=== PATIENT | female | born 1960 | race Caucasian/White ===

== ENCOUNTER → 2020-02-27 09:45 | Outpatient (CLI) | payer OTHER, SELFPAY ==
--- NOTE | ~2020-02-27 | MM_ITS ---
EXAMINATION: MM screening alyson BI w justice HISTORY: Screening TECHNIQUE: Craniocaudal and mediolateral oblique 3-D tomosynthesis images were obtained and synthetic 2-D images were generated. CAD analysis was submitted and interpreted. COMPARISON: Comparison to multiple prior studies sequentially, with oldest reviewed study dated 02/2014. BREAST PARENCHYMAL COMPOSITION: There are scattered areas of fibroglandular density. FINDINGS: There is no evidence of suspicious mass, calcification, or architectural distortion to sugg est malignancy in either breast. There has been no suspicious interval change. IMPRESSION: 1. No mammographic evidence of malignancy. 2. Recommend routine screening mammography in one year. BI-RADS Category 1: Negative Reviewed, dictated and finalized at location A.
== END ==
PROVIDERS: Visit Provider Obstetrics & Gynecology Gynecology
DX: Z12.31 Encounter for screening mammogram for malignant neoplasm of breast (principal)
CPT/HCPCS: 77063; 77067

== ENCOUNTER → 2022-03-19 13:17 | Outpatient (CLI) | payer OTHER, SELFPAY ==
--- NOTE | ~2022-03-19 | DEXA_ITS ---
Bone Density Report Name: SANDI RAM Age: 62 Sex: Female Ethnicity: White Date of : 1960 Indication: postmenopausal osteoporosis; height loss; prior fracture; Referring Provider: ERNESTINA TAMEZ Study: Bone densitometry was performed. Exam Date: March 19, 2022 Accession number: [id number] Bone Density: Region BMD T-score Z-score Classification AP Spine (L1-L4) 0.775 -2.5 -0.8 Osteoporosis Femoral Neck (Left) 0.611 -2.1 -0.7 Osteopenia Total Hip (Left) 0.736 -1.7 -0.6 Osteopenia Femoral Neck (Right) 0.704 -1.3 0.1 Osteopenia Total Hip (Right) 0.807 -1.1 0.0 Osteopenia Total Hip Mean 0.772 -1.4 -0.3 Osteopenia World Health Organization criteria for BMD impression classify patients as: Normal (T-score at or above -1.0), Osteopenia (T-score between -1.0 and -2.5), or Osteoporosis (T-score at or below -2.5). 10-year Fracture Risk: FRAX not reported because: Some T-score for Spine Total or Hip Total or Femoral Neck at or below -2.5 Previous Exams: Region Exam Age BMD T-score BMD Change BMD Change Date g/cm2 vs Baseline vs Previous AP Spine(L1-L4) 03/19/2022 62 0.775 -2.5 0.009 0.030 03/11/2016 56 0.745 -2.7 -0.021 -0.021 02/09/2014 53 0.766 -2.6 Total Hip(Left) 03/19/2022 62 0.736 -1.7 -0.083* -0.063 03/11/2016 56 0.799 -1.2 -0.020 -0.020 02/09/2014 53 0.819 -1.0 Total Hip(Right) 03/19/2022 62 0.807 -1.1 -0.044* -0.007 03/11/2016 56 0.813 -1.1 -0.038 -0.038 02/09/2014 53 0.851 -0.7 *Denotes significance at 95% confidence level, LSC for AP Spine = 0.022 g/cm2, LSC for Total Hip = 0.027 g/cm2 Clinical Information Provided by Patient: Has had a low trauma fracture Smokes Has used the following medications: Vitamin D Patient maximum height was 65.5 Menopause Age: 45 Does not regularly consume dairy products Drinks caffeinated beverages Onset of menses at age 9 Number of children 2 Impression: The patient has established osteoporosis, based on the Total Spine T-score and the existence of a prior fracture. The patient has risk factors, including: smoking, previous fracture. No significant bone loss was observed. Discussion: HIGH RISK OF FRACTURE. BONE DENSITY IS UNDESIRABLY LOW AT ONE OR MORE SKELETAL SITES, CONSISTENT WITH POSTMENOPAUSAL OSTEOPOROSIS. This patient's lowest T-score, in a diana
--- NOTE | ~2022-03-19 | MM_ITS ---
EXAMINATION: MM screening alyson BI w justice HISTORY: Screening TECHNIQUE: Craniocaudal and mediolateral oblique 3-D tomosynthesis images were obtained and synthetic 2-D images were generated. CAD analysis was submitted and interpreted. COMPARISON: Comparison to multiple prior studies sequentially, with oldest reviewed study dated 03/05. BREAST PARENCHYMAL COMPOSITION: Breast composed of scattered areas of fibroglandular density FINDINGS: There is no evidence of suspicious mass, calcification, or architectural distortion to sugg est malignancy in either breast. There has been no suspicious interval change. IMPRESSION: 1. No mammographic evidence of malignancy. 2. Recommend routine screening mammography in one year. BI-RADS Category 1: Negative Reviewed, dictated and finalized at location A.
== END ==
PROVIDERS: PCP Obstetrics & Gynecology Gynecology; Visit Provider Obstetrics & Gynecology Gynecology
DX: Z12.31 Encounter for screening mammogram for malignant neoplasm of breast (principal); Z78.0 Asymptomatic menopausal state; M81.0 Age-related osteoporosis without current pathological fracture; M85.851 Other specified disorders of bone density and structure, right thigh; M85.852 Other specified disorders of bone density and structure, left thigh
CPT/HCPCS: 77063; 77067; 77080

== ENCOUNTER → 2023-03-20 11:05 | Outpatient (CLI) | payer OTHER, SELFPAY ==
--- NOTE | ~2023-03-20 | MM_ITS ---
EXAMINATION: MM screening alyson BI w justice HISTORY: Screening mammogram TECHNIQUE: Craniocaudal and mediolateral oblique 3-D tomosynthesis images were obtained and synthetic 2-D images were generated. CAD analysis was submitted and interpreted. COMPARISON: 03/15/2022, 02/27/2020 bilateral screening mammogram examinations BREAST PARENCHYMAL COMPOSITION: There are scattered areas of fibroglandular density. FINDINGS: There is no evidence of suspicious mass, calcification, or architectural distortion to sugg est malignancy in either breast. There has been no suspicious interval change. IMPRESSION: 1. No mammographic evidence of malignancy. 2. Recommend routine screening mammography in one year. BI-RADS Category 1: Negative Reviewed, dictated and finalized at location A.
== END ==
PROVIDERS: PCP Internal Medicine; Visit Provider Obstetrics & Gynecology Gynecology
DX: Z12.31 Encounter for screening mammogram for malignant neoplasm of breast (principal)
CPT/HCPCS: 77063; 77067

== ENCOUNTER 2024-08-16 12:17 | Outpatient (CLI) | payer MEDICARE, SELFPAY ==
--- NOTE | ~2024-08-16 | MM_ITS ---
EXAMINATION: MM screening alyson BI w justice HISTORY: Screening TECHNIQUE: Craniocaudal and mediolateral oblique 3-D tomosynthesis images were obtained and synthetic 2-D images were generated. CAD analysis was submitted and interpreted. COMPARISON: Comparison to multiple prior studies sequentially, with oldest reviewed study dated 03/13. BREAST PARENCHYMAL COMPOSITION: Not Dense. The breasts are almost entirely fatty. FINDINGS: There is no evidence of suspicious mass, calcification, or architectural distortion to sugg est malignancy in either breast. There has been no suspicious interval change. IMPRESSION: 1. No mammographic evidence of malignancy. 2. Recommend routine screening mammography in one year. BI-RADS Category 1: Negative Reviewed, dictated and finalized at location A. ION WORKER
== END 2024-08-16 12:18 | disposition home or self-care (01) ==
LOC: MICIMG 12:19
PROVIDERS: PCP Internal Medicine; Visit Provider Obstetrics & Gynecology Gynecology
DX: Z12.31 Encounter for screening mammogram for malignant neoplasm of breast (principal); Z78.0 Asymptomatic menopausal state
CPT/HCPCS: 77063; 77067

== ENCOUNTER 2025-03-21 12:57 | Outpatient (CLI) | payer MEDICARE, SELFPAY ==
--- OUTSIDE RECORDS SUMMARY | 2025-03-21 13:00 | XMS_ITS | Encounter Summary ---
Author Organization [facility] Address [address] [facility] [place] [address] Care Team Providers Care Corrosion Prevention Metal Sprayer Name Role Phone Bert Cole MD Primary Care Provider [phone] Reason for Visit * Reason Onset Date Comments MEDICATION REFILL 12/02/2018 Encounter Details Date Type Department Care Team (Late st Contact Info) Description 12/02/2018 Refill [facility] [address] [place] [address] Gabby Higginbotham MD [address] [place] [id number] MEDICATION REFILL Social History Tobacco Use Types Packs/Day Years Used Date Smoking Tobacco: Never Smokeless Tobacco: Never Alcohol Use Standard Drinks/Week Comments Yes 0 (1 standard drink = 0.6 oz pur e alcohol) ocass. Comments No Sex and Gender Information Value Date Recorded Sex Assigned at Not on file Legal Sex Female 12:56 PM [employer] Gender Identity Not on file Sexual Orientation Not on file documented as of this encounter Plan of Treatment Not on file documented as of this encounter Visit Diagnoses Diagnosis Fibromyalgia Mylagia and myositis, unspecified Primary osteoarthritis of both knees Primary localized osteoarthrosis, lower leg Primary osteoarthritis of both feet Encounter for long-term (current) use of high-risk medication Encounter for long-term (current) use of other medications Encounter for therapeutic drug monitoring documented in this encounter Care Teams Corrosion Prevention Metal Sprayer Relationship Specialty Start Date End Date Bert Cole MD PCP - General 07/12/18 documented as of this encounter
--- OUTSIDE RECORDS SUMMARY | 2025-03-21 13:00 | XMS_ITS | Clinical Summary ---
Author Organization [facility] Address [address] [place] [address] Care Team Providers Care Head Swamper Name Role Phone Bert Cole MD Primary Care Provider [phone] Source Comments [facility],non-owned Affiliates and Associated Physician Practices is amultiple site organization consisting of ambulatory clinics and hospital sitesin [place], [place], [place] and [place]. This disclosure is being madepursuant to the Care Everywhere program and may not contain all information available regarding this patient. Last updated 18.[facility] Allergies Active Allergy Reactions Criticality Noted Date Comments Contrast-Iodinated Agents For Ct/Other Anaphylaxis High 08/14/2016 Sulfa Drugs Anaphylaxis High 04/29/2016 Medications * Be aware that medications may not be up to date on this document. Alwaysverify current medications with the patient. ascorbic acid (VITAMIN C) 500 MG tabletIndications:F ibromyalgia,Primary osteoarthritis of both knees,Primary osteoarthritis of both feet,Encounter for long-term (current) use of high-risk medication,Encounte r for therapeutic drug monitoring Take 500 mg by mouth once daily Active vitamin D3 (CHOLECALCIFEROL) 1000 UNITS tabletIndications:F ibromyalgia,Primary osteoarthritis of both knees,Primary osteoarthritis of both feet,Encounter for long-term (current) use of high-risk medication,Encounte r for therapeutic drug monitoring Take 1,000 Units by mouth once daily Active cyclobenzaprine (FLEXERIL) 10 MG tabletIndications:F ibromyalgia,Primary osteoarthritis of both knees,Primary osteoarthritis of both feet,Encounter for long-term (current) use of high-risk medication,Encounte r for therapeutic drug monitoring Take 10 mg by mouth Active fluticasone propionate (FLONASE) 50 MCG/ACT nasal sprayIndications:Fi bromyalgia,Primary osteoarthritis of both knees,Primary osteoarthritis of both feet,Encounter for long-term (current) use of high-risk medication,Encounte r for therapeutic drug monitoring [place] 1 spray into the nose once daily Active HYDROcodone-acetami nophen (NORCO) 7.5-325 MG tabletIndications:F ibromyalgia,Primary osteoarthritis of both knees,Primary osteoarthritis of both feet,Encounter for long-term (current) use of high-risk medication,Encounte r for therapeutic drug monitoring Take 1 tablet by mouth Active methocarbamol (ROBAXIN) 750 MG tabletIndications:F ibromyalgia,Primary osteoarthritis of both knees,Primary osteoarthritis of both feet,Encounter for long-term (current) use of high-risk medication,Encounte r for therapeutic drug monitoring Take 1 tablet by mouth 4 times daily as needed after meals/at bedtime for Muscle Spasms 0 8 Active Zinc 50 MGIndications:Fibro myalgia,Primary osteoarthritis of both knees,Primary osteoarthritis of both feet,Encounter for long-term (current) use of high-risk medication,Encounte r for therapeutic drug monitoring Acti ve diclofenac sodium EC (VOLTAREN) 75 MG tabletIndications:F ibromyalgia,Primary osteoarthritis of both knees,Primary osteoarthritis of both feet,Encounter for long-term (current) use of high-risk medication,Encounte r for therapeutic drug monitoring Take 1 tablet by mouth 2 times daily 180 tablet 1 8 Active gabapentin (NEURONTIN) 300 MG capsule Take 1 capsule by mouth 2 times daily 60 capsule 5 8 Active sertraline (ZOLOFT) 50 MG tabletIndications:F ibromyalgia,Primary osteoarthritis of both knees,Primary osteoarthritis of both feet,Encounter for long-term (current) use of high-risk medication,Encounte r for therapeutic drug monitoring Take 1.5 tablets by mouth once daily 135 tablet 9 Active Active Problems Problem Noted Date Diagnosed Date Fibromyalgia 11/09/2017 Primary osteoarthritis of both knees 11/09/2017 Primary osteoarthritis of both feet 11/09/2017 Encounter for long-term (cur rent) use of high-risk medication 11/09/2017 Encounter for therapeutic drug monitoring 2017 Immunizations Immunization Administration Dates Next Due INFLUENZA VACCINE 04/26/2018 Social History Tobacco Use Types Packs/Day Years Used Date Smoking Tobacco: Never Smokeless Tobacco: Never Alcohol Use Standard Drinks/Week Comments Yes 0 (1 standard drink = 0.6 oz pur e alcohol) ocass. 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 Gender Identity Not on file Sexual Orientation Not on file Last Filed Vital Signs Vital Sign Reading Time Taken Comments Blood Pressure 114/76 05/03/2018 9:43 AM CDT Pulse 77 11/09/2017 2:30 PM CDT Temperature 37.4 C (99.3 F) 11/09/2017 2:30 PM CDT Respiratory Rate 16 11/09/2017 2:30 PM CDT Oxygen Saturation 98% 11/09/2017 2:30 PM CDT Inhaled Oxygen Concentration - - Weight 94.3 kg (207 lb 12.8 oz) 05/03/2018 9:43 AM CDT Height 166.4 cm (5' 5.5) 11/09/2017 2:30 PM CDT Body Mass Index 34.05 11/09/2017 2:30 PM CDT Plan of Treatment Health Maintenance Due Date Last Done Comments BONE DENSITY TESTING 1959 COLOGUARD (AGES 45-75) - COL ON CA SCREENING 1959 COLON MONITORING 1959 COLONOSCOPY - COLON CA SCREENING 1959 CT COLONOGRAPHY - COLON CA SCREENING 1959 Colorectal Cancer Screening 1959 FIT - COLON CA SCREENING 1959 FLEX SIG - COLON CA SCREENING 1959 LIPID TESTING 1959 MAMMOGRAM 1959 DTAP/TDAP/TD VACCINES (1 - Tdap) 1978 PNEUMOCOCCAL VACCINE 50+ (1 of 1 - PCV) 2009 ZOSTER VACCINE (1 of 2) 2009 SCREENING FOR DIABETES 04/27/2021 8, 10/29/2017, 11/25/2016 COVID-19 VACCINE (1 - 2023-2 5 season) 2024 DEPRESSION SCREENING 07/27/2024 INFLUENZA VACCINE (#1) 2025 04/26/2018 Respiratory Syncytial Virus (RSV) Vaccine Pt: or over 60 yrs (1 - 1-dose 75+ series) 2034 HEPATITIS C SCREENING Completed 11/25/2016 HEPATITIS B VACCINE Aged Out No longe r eligible based on patient's age to complete this topic HIB VACCINE Aged Out No longer eligi ble based on patient's age to complete this topic HPV VACCINE Aged Out No longer eligi ble based on patient's age to complete this topic MENINGOCOCCAL (Group B) VACCINE SHARED DECISION-MAKING Aged Out No longer eligible based on patient's age to complete this topic MENINGOCOCCAL GROUPS A/C/Y/W VACCINE Aged Out No longer eligible b ased on patient's age to complete this topic Procedures Procedure Name Priority Date/Time Associated Diagnosis Comments COMPREHENSIVE METABOLIC PANEL Routine 04/27/2018 3:19 PM CDT Fibromyalgia Primary osteoarthritis of both knees Primary osteoarthritis of both feet Encounter for long-term (current) use of high-risk medication Encounter for therapeutic drug monitoring HEPATITIS C ANTIBODY Routine 11/25/2016 1:06 PM CDT from Last 3 Months or Most Recently Relevant to Health Maintenance Results * COMPREHENSIVE METABOLIC PANEL (04/27/2018 3:19 PM CDT) Glucose 89 65 - 99 mg/dL [facility] INSURANCE BILL BUN 10 6 - 24 mg/dL [facility] INSURANCE BILL Creatinine 0.72 0.57 - 1.00 mg/dL [facility] INSURANCE BILL eGFR by MDRD 92 >59 mL/min/1.7 3 [facility] INSURANCE BILL eGFR by MDRD 106 >59 mL/min/1.7 3 [facility] INSURANCE BILL BUN/Creatinine Ratio 14 9 - 23 [facility] INSURANCE BILL Sodium 141 134 - 144 mmol/L [facility] INSURANCE BILL Potassium 4.8 3.5 - 5.2 mmol/L [facility] INSURANCE BILL Chloride 101 96 - 106 mmol/L [facility] INSURANCE BILL CO2 23 20 - 29 mmol/L [facility] INSURANCE BILL Calcium 9.9 8.7 - 10.2 mg/dL [facility] INSURANCE BILL Protein Total 7.2 6.0 - 8.5 g/dL [facility] INSURANCE BILL Albumin 4.4 3.5 - 5.5 g/dL [facility] INSURANCE BILL Globulin Total 2.8 1.5 - 4.5 g/dL [facility] INSURANCE BILL Albumin/Globulin Ratio 1.6 1.2 - 2.2 [facility] INSURANCE BILL Bilirubin Total 0.5 0.0 - 1.2 mg/dL [facility] INSURANCE BILL Alkaline Phosphatase 110 39 - 117 IU/L [facility] INSURANCE BILL AST 22 0 - 40 IU/L [facility] INSURANCE BILL ALT 18 0 - 32 IU/L [facility] INSURANCE BILL Blood BLOOD SPECIMEN / Unknown 04/27/2018 3:19 PM CDT 04/27/2018 Narrative Resulting Agency Comment [facility] [id number] Gabby Higginbotham MD LAB - CHEMISTRY ORDERA BLES Final Result Performing Organization Address City/[facility]/ZIP Co de Phone Number [facility] [address] [place] [address] * HEPATITIS C ANTIBODY (11/25/2016 1:06 PM CDT) [facility] Hepatitis C Virus Antibody 0.1 0.0 - 0.9 s/co ratio [facility] ([facility]) Comment: Negative: < 0.8 Indeterminate: 0.8 - 0.9 Positive: > 0.9 The CDC recommends that a positive HCV antibody result be followed up with a HCV Nucleic Acid Amplification test ([id number]). Blood specimen (specimen) BLOOD SPECIMEN / Unknown 11/25/2016 1:06 PM CDT 11/25/2016 Narrative [facility] ([facility]) - 11/26/2016 7:13 AM CDT Performed at: [address] [place] [id number] Independent Distributor: Joe Hopper PhD, Phone: [phone] Gabby Higginbotham MD LAB - CHEMISTRY ORDERA BLES Final Result Performing Organization Address City/[facility]/ZIP Co de Phone Number [facility] ([facility]) [address] [place] [address], [facility] from Last 3 Months or Most Recently Relevant to Health Maintenance Insurance [employer] Care Teams Head Swamper Relationship Specialty Start Date End Date Bert Cole MD PCP - General 07/12/18
--- NOTE | 2025-03-21 13:20 | NEURO_ITS ---
Impression: # Non-diabetic complains of numbness of left hand. ? # No Carpal Tunnel Syndrome. ? # Severe left Ulnar Neuropathy. ? # Moderate right Ulnar Neuropathy. ? # Abnormal Needle/ EMG exam. ? # Clinical correlation recommended. Nerve Conduction Studies ?Stim Site NR Peak (ms) P-T Amp (?V) Site1 Site2 Delta-P (ms) Dist (cm) Noah (m/s) Left Median Anti Sensory (2-3nd Digit) Wrist ? 3.6 23.2 Wrist 2-3nd Digit 3.6 14.0 39 Wrist ? 3.8 22.6 Wrist 2-3nd Digit 3.6 14.0 39 Right Median Anti Sensory (2-3nd Digit) Wrist ? 3.5 24.0 Wrist 2-3nd Digit 3.5 14.0 40 Wrist ? 3.5 21.5 Wrist 2-3nd Digit 3.5 14.0 40 Left Radial Anti Sensory (Base 1st Digit) Wrist ? 1.8 21.1 Wrist Base 1st Digit 1.8 0.0 Right Radial Anti Sensory (Base 1st Digit) Wrist ? 2.6 19.6 Wrist Base 1st Digit 2.6 0.0 Left Ulnar Anti Sensory (5th Digit) Wrist ? 2.9 2.0 Wrist 5th Digit 2.9 14.0 48 Right Ulnar Anti Sensory (5th Digit) Wrist ? 2.8 34.7 Wrist 5th Digit 2.8 14.0 50 ?Stim Site NR Onset (ms) O-P Amp (mV) Site1 Site2 Delta-0 (ms) Dist (cm) Noah (m/s) Left Median Motor (Abd Poll Brev) Wrist ? 4.0 4.6 Elbow Wrist 5.2 31.0 60 Elbow ? 9.2 3.7 Right Median Motor (Abd Poll Brev) Wrist ? 3.5 2.7 Elbow Wrist 5.0 29.0 58 Elbow ? 8.5 3.2 Left Ulnar Motor (Abd Dig Minimi) Wrist ? 3.0 2.7 A Elbow Wrist 8.5 31.0 36 A Elbow ? 11.5 3.1 B Elbow Wrist 5.4 23.0 43 B Elbow ? 8.4 3.7 Right Ulnar Motor (Abd Dig Minimi) Wrist ? 3.5 2.4 A Elbow Wrist 5.5 28.0 51 A Elbow ? 9.0 2.0 B Elbow Wrist 3.8 19.0 50 B Elbow ? 7.3 2.1 F Wave Studies ?NR F-Lat (ms) L-R F-Lat (ms) Left Median (Mrkrs) (Abd Poll Brev) ? 27.36 0.76 Right Median (Mrkrs) (Abd Poll Brev) ? 28.13 0.76 Left Ulnar (Mrkrs) (Abd Dig Min) ? 25.21 3.82 Right Ulnar (Mrkrs) (Abd Dig Min) ? 29.03 3.82 Electromyography ?Side Muscle Nerve Root Ins Act Fibs Amp Dur Recrt Comment Right 1stDorInt Ulnar C8-T1 Nml Nml Nml >12ms +1 Left 1stDorInt Ulnar C8-T1 Nml Nml Decr >12ms +2 Right ABD Dig Min Ulnar C8-T1 Nml Nml Nml >12ms +1 Left ABD Dig Min Ulnar C8-T1 Nml Nml Decr >12ms Nml Left Abd Poll Brev Median C8-T1 Nml Nml Nml Nml Nml Right Abd Poll Brev Median C8-T1 Nml Nml Nml Nml Nml Right Abd Poll Long Radial (Post Int) C7-8 Nml Nml Nml Nml Nml Left Abd Poll Long Radial (Post Int) C7-8 Nml Nml Nml Nml Nml Left Biceps Musculocut C5-6 Nml Nml Nml Nml Nml Right Biceps Musculocut C5-6 Nml Nml Nml Nml Nml Right BrachioRad Radial C5-6 Nml Nml Nml Nml Nml Left BrachioRad Radial C5-6 Nml Nml Nml Nml Nml Left Deltoid Axillary C5-6 Nml Nml Nml Nml Nml Right Deltoid Axillary C5-6 Nml Nml Nml Nml Nml Right Ext Digitorum Radial (Post Int) C7-8 Nml Nml Nml Nml Nml Left Ext Digitorum Radial (Post Int) C7-8 Nml Nml Nml Nml Nml Right Ext Indicis Radial (Post Int) C7-8 Nml Nml Nml Nml Nml Left Ext Indicis Radial (Post Int) C7-8 Nml Nml Nml Nml Nml Right FlexPolLong Median (Ant Int) C7-8 Nml Nml Nml Nml Nml Left FlexPolLong Median (Ant Int) C7-8 Nml Nml Nml Nml Nml Left PronatorTeres Median C6-7 Nml Nml Nml Nml Nml Right PronatorTeres Median C6-7 Nml Nml Nml Nml Nml Right Triceps Radial C6-7-8 Nml Nml Nml Nml Nml Left Triceps Radial C6-7-8 Nml Nml Nml Nml Nml
== END 2025-03-21 12:58 | disposition home or self-care (01) ==
PROVIDERS: PCP Internal Medicine; Visit Provider Internal Medicine
DX: G56.21 Lesion of ulnar nerve, right upper limb (principal); R20.2 Paresthesia of skin
CPT/HCPCS: 95886; 95911

== ENCOUNTER 2025-05-08 12:58 | Outpatient (CLI) | payer MEDICARE, SELFPAY ==
--- OUTSIDE RECORDS SUMMARY | 1999-06-28 03:00 | XMS_ITS | Continuity of Care Document ---
Author Organization [facility] Address [address] [place] [address] [address] [place] [address] Phone Care Team Providers Care Software Product Manager Name Role Phone Toan Glaser Unavailable Unavailable Advance Directives Directive Yes / No Effective Date File Name No Information Encounters Encounter Description Practice Location Reason(s) For Visit Diagnoses Date Provider Providers Copied on Encounter [facility], [address] [place] [address] [address], [place], [place], [id number], [place] tel:[phone] [facility] [place] No Information Dec-0 3-199 9 Doisy Edward. [address] [facility] , [address], [place], [address], [place]. tel:[phone] Family History Family Member Type Diagnosis Age At Onset No Information Payers Payer name Insurance type Covered alliance party ID Authoriza tion(s) [employer] SOI CI [id number] Social History Type Description Quantity Date Captured [...]
--- OUTSIDE RECORDS SUMMARY | 2025-02-14 06:00 | XMS_ITS | Continuity of Care Document ---
Author Organization [facility] Address [address] [place] [phone] Phone Care Team Providers Care Dictating Machine Typist Name Role Phone Ronni ORO, FACAdam, Guerita Unavailable Unavailab le Procedures Procedure Date TTE W/DOPPLER, COMPLETE Results Test Name Date and Time Measure Units Reference Range Abnormal Flag Status Comments Panel Description: Not Available Final [{Url}] <Url iRemMajorVer kayla=1 iRemMinorVer kayla=5.9.4 seq_no=ed3b [id number] template_nam e=PacsEx>< Path><![CDAT A[[email or web address] om/?ZMDopoyW 1DWNh1H1VjIS LpZWfYX1+oE5 T8AVTnOamy/+ X/qu7nEhujDr Vec/6Fk5H4kq jzvUVoLL0bVY DbDWmguEusY/ iY5a7mwjQj08 8QgV6vN6zdml cfPs+p7LBWJJ ]]></Path></ Url> Final Panel Description: ECHO Unknown Image ECHO 1 Advance Directives Directive Yes / No Effective Date File Name No Information Encounters Encounter Description Practice Location Reason(s) For Visit Diagnoses Date Provider Providers Copied on Encounter [facility] , [address] [place] [address], [id number], tel:[phone] [facility] Cardiac murmur, unspecified Ronni Dexter. [address] [place] [address], [id number], . tel:[phone] Referring Provider: Everton Albert, [address] [place], [address]. tel:[phone] Family History Family Member Type Diagnosis Age At Onset No Information Payers Payer name Insurance type Covered green party ID Authoriza tion(s) AARP [facility] ADVANTAGE PLAN 2 O [facility] [id number] 1 NO AUTH REQUIRED Social History Type [...]
--- NOTE | 2025-05-08 13:24 | ECG_ITS ---
Test Date: 2025-05-08 13:29:00 Measurements Intervals [place] Rate: 60 P: 256 AR: 122 QRS: -17 QRSD: 103 T: 4 QT: 426 QTc: 428 Interpretive Statements ECTOPIC ATRIAL RHYTHM VOLTAGE CRITERIA FOR LVH CONSIDER ANTERIOR INFARCT, AGE INDETERMINATE BORDERLINE T WAVE ABNORMALITY- INFERIOR LEADS ABNORMAL ECG No previous ECG available for comparison Electronically Signed On 05-08-2025 15:52:41 CDT by Faustino Green D.O.
--- OUTSIDE RECORDS SUMMARY | 2025-05-08 14:07 | XMS_ITS | Clinical Summary ---
Author Organization [facility] Address [address] [place] [address] Care Team Providers Care Threading Machine Feeder Automatic Name Role Phone Bert Cole MD Primary Care Provider [phone] [facility],non-owned Affiliates and Associated Physician Practices is amultiple site organization consisting of ambulatory clinics and hospital sitesin [place], [place] and [place]. This disclosure is being madepursuant to the Care Everywhere program and may not contain all information available regarding this patient. 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 Gender Identity Not on file Sexual Orientation [...] CDT Height 166.4 cm (5' 5.5) 11/09/2017 2 :30 PM CDT Body Mass Index 34.05 11/09/2017 [...] SCREENING FOR DIABETES 04/27/2021 8, 10/29/2017, 11/25/2016 DEPRESSION SCREENING 07/27/2024 COVID-19 VACCINE (1 - 2023-2 5 season) 2025 INFLUENZA VACCINE (#1) 2025 04/26/2018 Respiratory Syncytial [...] PM CDT 04/27/2018 Narrative Resulting Agency Comment [facility] [id number] Gabby Higginbotham MD LAB - CHEMISTRY ORDERA BLES Final Result Performing Organization Address City/[facility]/ZIP Co de Phone Number [facility] INS[facility]ANCE BILL [address] [place] [address] * HEPATITIS C ANTIBODY (11/25/2016 1:06 PM CDT) [facility] Hepatitis C Virus Antibody 0.1 0.0 - 0.9 s/co ratio [facility] ([facility]) Comment: Negative: < 0.8 Indeterminate: 0.8 - 0.9 Positive: > 0.9 The CDC recommends that a positive HCV antibody result be followed up with a HCV Nucleic Acid Amplification test ([id number]). Blood specimen (specimen) BLOOD SPECIMEN / Unknown 11/25/2016 1:06 PM CDT 11/25/2016 Narrative [facility] ([facility]) - 11/26/2016 7:13 AM CDT Performed at: [address] [place] [id number] Abattoir Supervisor: Joe Hopper PhD, Phone: [phone] Gabby Higginbotham MD LAB - CHEMISTRY ORDERA BLES Final Result Performing Organization Address City/[facility]/ZIP Co de Phone Number [facility] ([facility]) [address] [place] [address], [facility] from Last 3 Months or Most Recently Relevant to Health Maintenance Insurance [employer] Care Teams Threading Machine Feeder Automatic Relationship Specialty Start Date End Date Bert Cole MD PCP - General 07/12/18
--- OUTSIDE RECORDS SUMMARY | 2025-05-08 14:08 | XMS_ITS | Data Portability ---
[facility] Address [address] [place] [address] Care Team Providers Care Dock Coordinator Name Role Phone KAVITHA ALBERT Primary Care Provider Assessment Encounter Date Assessment Date Assessment LastModified by Organization Details LastModified Time 11/25/2023 11/25/2023 Obtain blood wor k continue current mammogram she believes she is up-to-date we will get colon cancer screening obtain old records from previous office osteoporosis not treated right now because of her jaw issue states that she had a Pap smear in November 2022 follow-up with me in 4 months [email or web address] Not available 11/30/2023 22:45:01 07/01/2024 07/01/2024 acetaminophen fo r osteoarthritis healthy lifestyle care instructions blood work for biochemical management of disease processes and medications [email or web address] Not available 07/02/2024 12:05:09 01/09/2025 01/09/2025 Medrol Dosepak nerve conduction studies complete echo for her systolic murmur CBC CMP lipid see me in 8 weeks continue with sertraline and atorvastatin as well [email or web address] Not available 01/09/2025 23:14:02 03/06/2025 03/06/2025 Physical therapy for her cervical radiculopathy she will follow up in 2 months still needs to get her echo for her murmur Not available 03/12/2025 17:47:46 Plan of Treatment Reminders Order Date Submit Date Provider Last Modified By Organization Details Last Modified Time Details Appointments ANY 15 2024 10:30A M Kavitha Albert MD Not available Not available Not available Lab CBC w/ auto diff 2024 025 [facility], [address] [facility] [address], [place], [address], 03/07/2025 07:07:15 CMP, serum or plasma 2024 025 [facility], [address] [place] [address] 2, [place], [address], 03/07/2025 07:07:15 lipid panel, serum 2024 025 [facility], [address] [place] [address] 2, [place], [address], 03/07/2025 07:07:14 CBC w/ auto diff 2023 024 [facility], [address] [place] [address] 2, [place], [address], 07/02/2024 09:13:54 lipid panel, serum 2023 024 [facility], [address] [place] [address], [place], [address], 07/02/2024 09:13:52 CMP, serum or plasma 2023 024 [facility], [address] [place] [address], [place], [address], 07/02/2024 09:13:53 noninvasi ve colorecta l cancer DNA + occult blood screening , QL, stool 2023 024 [facility], [address], [address], [place], [address], 12/23/2023 01:26:02 CBC w/ auto diff 2023 024 [facility], [facility], [address], [place], [address], 11/26/2023 08:29:19 lipid panel, serum 2023 024 [facility], [address], [place], [address], 11/26/2023 08:29:17 CMP, serum or plasma 2023 024 [facility], [address], [address], [place], [address], 11/26/2023 08:29:18 Referral physical therapist referral 2024 025 [facility], [address], [place], [address], 04/19/2025 11:05:17 Procedures None recorded. Surgeries None recorded. Imaging US, echocardi ogram 2024 025 [facility], [address], [address], [place], [address], 03/06/2025 14:24:48 nerve conductio n study - NCS B/L arms 2024 025 [facility]), [address] [place] [address] [address] [facility], [place], [address], 03/28/2025 10:58:36 Medication Orders Medrol (Hayden) 4 mg tablets in a dose pack 2024 025 [facility], [address] [facility], [place], [address], 03/06/2025 14:02:06 Patient TargetsNo targets recorded. Patient Instructions Encounter Date Encounter Id Patient Instructions Last Modified By Organization Details Last Modified Time 07/01/2024 [id number] A healthy lifestyle: care instructions [email or web address] Not available 07/01/2024 16:47:28 01/09/2025 [id number] A healthy lifestyle: care instructions [email or web address] Not available 01/09/2025 15:13:49 03/06/2025 [id number] A healthy lifestyle: care instructions [email or web address] Not available 03/06/2025 14:48:48 Reason for Referral Physical Therapist Referral for Cervical radiculopathy Referring Physician: Kavitha Albert, Internal Medicine, Encounter Date: 03/06/2025 Results Created Date Observation Date Name Description Value Unit Range Abnormal Flag Note LastModifiedBy Organization Detail LastModifiedTime 11/25/19 24 11/26/2023 LIPID PANEL cholesterol, total 186 mg/dL 100-19 9 Not Available [facility] ([facility]) [address] [place], [address], 11/26/2023 08:29:17 11/25/19 24 11/26/2023 LIPID PANEL triglyceride s 185 mg/dL 0-149 above high normal Not Available [facility] ([facility]) [address] [place], [address], 11/26/2023 08:29:17 11/25/19 24 11/26/2023 LIPID PANEL HDL cholesterol 53 mg/dL >39 Not Available [facility] ([facility]) [address] [place], [address], 11/26/2023 08:29:17 11/25/19 24 11/26/2023 LIPID PANEL VLDL cholesterol nayana 32 mg/dL 5-40 Not Available [facility] ([facility]) [address] [place], [address], 11/26/2023 08:29:17 11/25/19 24 11/26/2023 LIPID PANEL LDL chol calc ([facility]) 101 mg/dL 0-99 above high normal Not Available [facility] ([facility]) [address] [place], [address], 11/26/2023 08:29:17 11/25/19 24 11/26/2023 COMP. METAB OLIC PANEL (14) glucose 86 mg/dL 70-99 Not Available [facility] ([facility]) [address] [place], [address], 11/26/2023 08:29:18 11/25/19 24 11/26/2023 COMP. METAB OLIC PANEL (14) BUN 12 mg/dL 8-27 Not Available [facility] ([facility]) [address] [facility] [place], [address], 11/26/2023 08:29:18 11/25/19 24 11/26/2023 COMP. METAB OLIC PANEL (14) creatinine 0.86 mg/dL 0.57-1 .00 Not Available [facility] ([facility]) [address] [facility] [place], [address], 11/26/2023 08:29:18 11/25/19 24 11/26/2023 COMP. METAB OLIC PANEL (14) eGFR 75 mL/mi n/1.7 3 >59 Not Available [facility] ([facility]) [address] [facility] [place], [address], 11/26/2023 08:29:18 11/25/19 24 11/26/2023 COMP. METAB OLIC PANEL (14) BUN/creatini ne ratio 14 12-28 Not Available [facility] ([facility]) [address] [facility] [place], [address], 11/26/2023 08:29:18 11/25/19 24 11/26/2023 COMP. METAB OLIC PANEL (14) sodium 141 mmol/ L 134-14 4 Not Available [facility] ([facility]) [address] [facility] [place], [address], 11/26/2023 08:29:18 11/25/19 24 11/26/2023 COMP. METAB OLIC PANEL (14) potassium 4.4 mmol/ L 3.5-5. 2 Not Available [facility] ([facility]) [address] [facility] [place], [address], 11/26/2023 08:29:18 11/25/19 24 11/26/2023 COMP. METAB OLIC PANEL (14) chloride 102 mmol/ L 96-106 Not Available [facility] ([facility]) [address] [place], [address], 11/26/2023 08:29:18 11/25/19 24 11/26/2023 COMP. METAB OLIC PANEL (14) carbon dioxide, total 24 mmol/ L Not Available [facility] ([facility]) [address], [place], [address], 11/26/2023 08:29:18 11/25/19 24 11/26/2023 COMP. METAB OLIC PANEL (14) calcium 9.6 mg/dL 8.7-10 .3 Not Available [facility] ([facility]) [address] [place], [address], 11/26/2023 08:29:18 11/25/19 24 11/26/2023 COMP. METAB OLIC PANEL (14) protein, total 7.1 g/dL 6.0-8. 5 Not Available [facility] ([facility]) [address], [place], [address], 11/26/2023 08:29:18 11/25/19 24 11/26/2023 COMP. METAB OLIC PANEL (14) albumin 4.6 g/dL 3.9-4. 9 Not Available [facility] ([facility]) [address] [place], [address], 11/26/2023 08:29:18 11/25/19 24 11/26/2023 COMP. METAB OLIC PANEL (14) globulin, total 2.5 g/dL 1.5-4. 5 Not Available [facility] ([facility]) [address] [place], [address], 11/26/2023 08:29:18 11/25/19 24 11/26/2023 COMP. METAB OLIC PANEL (14) A/G ratio 1.8 1.2-2. 2 Not Available [facility] ([facility]) [address] [place], [address], 11/26/2023 08:29:18 11/25/19 24 11/26/2023 COMP. METAB OLIC PANEL (14) bilirubin, total 0.7 mg/dL 0.0-1. 2 Not Available [facility] ([facility]) [address] [place], [address], 11/26/2023 08:29:18 11/25/19 24 11/26/2023 COMP. METAB OLIC PANEL (14) alkaline phosphatase 106 IU/L 44-121 Not Available [facility] ([facility]) [address] [facility] [place], [address], 11/26/2023 08:29:18 11/25/19 24 11/26/2023 COMP. METAB OLIC PANEL (14) AST (SGOT) 25 IU/L 0-40 Not Available [facility] ([facility]) [address] [facility], [place], [address], 11/26/2023 08:29:18 11/25/19 24 11/26/2023 COMP. METAB OLIC PANEL (14) ALT (SGPT) 14 IU/L 0-32 Not Available [facility] ([facility]) [address] [facility] [place], [address], 11/26/2023 08:29:18 11/25/19 24 11/26/2023 CBC WITH DIFFE RENTI AL/PL ATELE T WBC 8.0 x10e3 /uL 3.4-10 .8 Not Available [facility] ([facility]) [address] [facility] [place], [address], 11/26/2023 08:29:19 11/25/19 24 11/26/2023 CBC WITH DIFFE RENTI AL/PL ATELE T RBC 4.62 x10e6 /uL 3.77-5 .28 Not Available [facility] ([facility]) [address] [facility] [place], [address], 11/26/2023 08:29:19 11/25/19 24 11/26/2023 CBC WITH DIFFE RENTI AL/PL ATELE T hemoglobin 14.1 g/dL 11.1-1 5.9 Not Available [facility] ([facility]) [address] [facility], [place], [address], 11/26/2023 08:29:19 11/25/19 24 11/26/2023 CBC WITH DIFFE RENTI AL/PL ATELE T hematocrit 43.4 % 34.0-4 6.6 Not Available [facility] ([facility]) [address] [place], [address], 11/26/2023 08:29:19 11/25/19 24 11/26/2023 CBC WITH DIFFE RENTI AL/PL ATELE T MCV 94 fL 79-97 Not Available [facility] ([facility]) [address] [place], [address], 11/26/2023 08:29:19 11/25/19 24 11/26/2023 CBC WITH DIFFE RENTI AL/PL ATELE T MCH 30.5 pg 26.6-3 3.0 Not Available [facility] ([facility]) [address] [place], [address], 11/26/2023 08:29:19 11/25/19 24 11/26/2023 CBC WITH DIFFE RENTI AL/PL ATELE T MCHC 32.5 g/dL 31.5-3 5.7 Not Available [facility] ([facility]) [address] [place], [address], 11/26/2023 08:29:19 11/25/19 24 11/26/2023 CBC WITH DIFFE RENTI AL/PL ATELE T RDW 12.7 % 11.7-1 5.4 Not Available [facility] ([facility]) [address] [place], [address], 11/26/2023 08:29:19 11/25/19 24 11/26/2023 CBC WITH DIFFE RENTI AL/PL ATELE T platelets 272 x10e3 /uL 150-45 0 Not Available [facility] ([facility]) [address] [facility], [place], [address], 11/26/2023 08:29:19 11/25/19 24 11/26/2023 CBC WITH DIFFE RENTI AL/PL ATELE T neutrophils 63 % notest ab. Not Available [facility] ([facility]) [address] [facility], [place], [address], 11/26/2023 08:29:19 11/25/19 24 11/26/2023 CBC WITH DIFFE RENTI AL/PL ATELE T lymphs 20 % notest ab. Not Available [facility] ([facility]) [address] [facility], [place], [address], 11/26/2023 08:29:19 11/25/19 24 11/26/2023 CBC WITH DIFFE RENTI AL/PL ATELE T monocytes 9 % notest ab. Not Available [facility] ([facility]) [address] [facility], [place], [address], 11/26/2023 08:29:19 11/25/19 24 11/26/2023 CBC WITH DIFFE RENTI AL/PL ATELE T eos 7 % notest ab. Not Available [facility] ([facility]) [address] [facility], [place], [address], 11/26/2023 08:29:19 11/25/19 24 11/26/2023 CBC WITH DIFFE RENTI AL/PL ATELE T basos 1 % notest ab. Not Available [facility] ([facility]) [address] [facility], [place], [address], 11/26/2023 08:29:19 11/25/19 24 11/26/2023 CBC WITH DIFFE RENTI AL/PL ATELE T neutrophils (absolute) 5.0 x10e3 /uL 1.4-7. 0 Not Available [facility] ([facility]) [address] [facility], [place], [address], 11/26/2023 08:29:19 11/25/19 24 11/26/2023 CBC WITH DIFFE RENTI AL/PL ATELE T lymphs (absolute) 1.6 x10e3 /uL 0.7-3. 1 Not Available [facility] ([facility]) [address] [facility], [place], [address], 11/26/2023 08:29:19 11/25/19 24 11/26/2023 CBC WITH DIFFE RENTI AL/PL ATELE T monocytes(ab solute) 0.8 x10e3 /uL 0.1-0. 9 Not Available [facility] ([facility]) [address] [facility], [place], [address], 11/26/2023 08:29:19 11/25/19 24 11/26/2023 CBC WITH DIFFE RENTI AL/PL ATELE T eos (absolute) 0.6 x10e3 /uL 0.0-0. 4 above high normal Not Available [facility] ([facility]) [address] [facility], [place], [address], 11/26/2023 08:29:19 11/25/19 24 11/26/2023 CBC WITH DIFFE RENTI AL/PL ATELE T baso (absolute) 0.1 x10e3 /uL 0.0-0. 2 Not Available [facility] ([facility]) [address] [place], [address], 11/26/2023 08:29:19 11/25/19 24 11/26/2023 CBC WITH DIFFE RENTI AL/PL ATELE T immature granulocytes 0 % notest ab. Not Available [facility] ([facility]) [address] [place], [address], 11/26/2023 08:29:19 11/25/19 24 11/26/2023 CBC WITH DIFFE RENTI AL/PL ATELE T immature grans (abs) 0.0 x10e3 /uL 0.0-0. 1 Not Available [facility] ([facility]) [address] [facility], [place], [address], 11/26/2023 08:29:19 12/15/19 24 12/15/2023 COLOG UARD cologuard result reportable Negati ve negati ve normal NEGAT LEONARD TEST RESUL T. A negat leonard Colog uard resul t indic ates a low likel ihood that a color ectal cance r (CRC) or advan alex adeno ma (freedom omato us polyp s with more advan alex pre-m align ant featu res) is prese nt. The chanc e that a perso n with a negat leonard Colog uard test has a color ectal cance r is less than 1 in 1500 (nega tive predi ctive value >99.9 %) or has an advan alex adeno ma is less than 5.3% (nega tive predi ctive value 94.7% ). These data are based on a prosp ectiv e cross -sect ional study of 10,00 0 indiv idual s at [facility] risk for color ectal cance r who were scree rachna with both Colog uard and colon oscop y. (Sheyla Pablo. et al, N Engl J Med 2014; 370(1 4):12 86-12 97) The jose l value (refe rence range ) for this assay is negat leonard. COLOG UARD RE-SC REENI NG RECOM MENDA TION: Perio dic color ectal cance r scree maria antonia is an impor tant part of preve ntive healt hcare for asymp tomat ic indiv idual s at [facility] risk for color ectal cance r. Follo wing a negat leonard Colog uard resul t, the Ameri can Cance r Socie ty and U.S. Multi -Soci ety Task Force scree maria antonia guide lines recom mend a Colog uard re-sc bry burnham inter ann of 3 years . Refer ences : Gonzalo burton Cance jo-ann Socie ty Guide line for Color ectal Cance r Scree maria antonia: https ://milly chandler cer.o rg/ca ncer/ colon -rect al-ca ncer/ detec tion- diagn osis- stagi ng/ac s-rec ommen datio ns.ht ml.; Primo CARBAJAL, Adelia GALVAN, Alvarez RamírezK, Color ectal Cance r Scree maria antonia: Recom menda tions for Physi cians and Patie nts from the U.S. Multi -Soci ety Task Force on Color ectal Cance r Scree maria antonia , Oskar mathis rolog y 2017; 112:1 016-1 030. TEST DESCR IPTIO N: [place] site algor ithmi c kamala sis of stool DNA-b iomar kers with hemog lobin immun oassa y. Quant itati ve value s of indiv idual bioma rkers are not repor table and are not assoc iated with indiv idual bioma rker resul t refer ence range s. Colog uard is inten ded for color ectal cance r scree maria antonia of adult s of eithe r sex, 45 years or older , who are at [facility] for color ectal cance r (CRC) . Colog uard has been appro patsy for use by the U.S. FDA. The perfo rmanc e of Colog uard was estab lishe d in a cross secti onal study of [facility] adult s aged 50-84 . Colog uard perfo rmanc e in patie nts ages 45 to 49 years was estim ated by sub-g roup kamala sis of near- age group s. Colon oscop ies perfo rmed for a posit leonard resul t may find as the most clini dayna signi gay pablo lesgloria n: color ectal cance r [4.0% ], advan alex adeno ma (incl uding sessi le ming jamal polyp s great er than or equal to 1cm diame ter) [20%] or non- advan alex adeno ma [31%] ; or no color ectal neopl camelia [45%] . These estim ates are deriv ed from a prosp ectiv e cross -sect ional scree maria antonia study of 0 [facility] ectal cance r who were scree rachna with both Colog uard and colon oscop y. (Sheyla Hilario et al, N Engl J Med 2014; 370(1 4):12 86-12 97.) Colog uard may produ ce a false negat leonard or false posit leonard resul t (no color ectal cance r or preca ncero us polyp prese nt at colon oscop y follo w up). A negat leonard Colog uard test resul t does not guara ntee the absen ce of CRC or advan alex adeno ma (pre- cance r). The curre nt Colog uard scree maria antonia inter ann is every 3 years . (Amer ican Cance r Socie ty and U.S. Multi -Soci ety Task Force ). Colog uard perfo rmanc e data in a 0 patie nt pivot al study using colon oscop y as the refer ence metho d can be acces sed at the follo wing locat ion: www.e xactl abs.c om/jose arenas . Addit ional descr iptio n of the Colog uard test proce ss, warni ngs and preca ution s can be found at www.c rashid brown.c om. Not Available [facility] [address], [place], [address], 12/23/2023 01:26:02 07/01/20 24 07/02/2024 LIPID PANEL cholesterol, total 168 mg/dL 100-19 9 Not Available [facility] ([facility]) [address] [facility], [place], [address], 07/02/2024 09:13:52 07/01/20 24 07/02/2024 LIPID PANEL triglyceride s 171 mg/dL 0-149 above high normal Not Available [facility] ([facility]) [address] [facility] [place], [address], 07/02/2024 09:13:52 07/01/20 24 07/02/2024 LIPID PANEL HDL cholesterol 52 mg/dL >39 Not Available [facility] ([facility]) [address] [facility], [place], [address], 07/02/2024 09:13:52 07/01/20 24 07/02/2024 LIPID PANEL VLDL cholesterol nayana 29 mg/dL 5-40 Not Available [facility] ([facility]) [address] [facility], [place], [address], 07/02/2024 09:13:52 07/01/20 24 07/02/2024 LIPID PANEL LDL chol calc ([facility]) 87 mg/dL 0-99 Not Available [facility] ([facility]) [address] [facility] [place], [address], 07/02/2024 09:13:52 07/01/20 24 07/02/2024 COMP. METAB OLIC PANEL (14) glucose 77 mg/dL 70-99 Not Available [facility] ([facility]) [address] [place], [address], 07/02/2024 09:13:53 07/01/20 24 07/02/2024 COMP. METAB OLIC PANEL (14) BUN 12 mg/dL 8-27 Not Available [facility] ([facility]) [address] [facility], [place], [address], 07/02/2024 09:13:53 07/01/20 24 07/02/2024 COMP. METAB OLIC PANEL (14) creatinine 0.79 mg/dL 0.57-1 .00 Not Available [facility] ([facility]) [address] [place], [address], 07/02/2024 09:13:53 07/01/20 24 07/02/2024 COMP. METAB OLIC PANEL (14) eGFR 83 mL/mi n/1.7 3 >59 Not Available [facility] ([facility]) [address] [facility] [place], [address], 07/02/2024 09:13:53 07/01/20 24 07/02/2024 COMP. METAB OLIC PANEL (14) BUN/creatini ne ratio 15 12-28 Not Available [facility] ([facility]) [address] [facility], [place], [address], 07/02/2024 09:13:53 07/01/20 24 07/02/2024 COMP. METAB OLIC PANEL (14) sodium 141 mmol/ L 134-14 4 Not Available [facility] ([facility]) [address] [facility] [place], [address], 07/02/2024 09:13:53 07/01/20 24 07/02/2024 COMP. METAB OLIC PANEL (14) potassium 4.5 mmol/ L 3.5-5. 2 Not Available [facility] ([facility]) [address] [facility] [place], [address], 07/02/2024 09:13:53 07/01/20 24 07/02/2024 COMP. METAB OLIC PANEL (14) chloride 102 mmol/ L 96-106 Not Available [facility] ([facility]) [address] [facility] [place], [address], 07/02/2024 09:13:53 07/01/20 24 07/02/2024 COMP. METAB OLIC PANEL (14) carbon dioxide, total 27 mmol/ L 20-29 Not Available [facility] ([facility]) [address] [facility] [place], [address], 07/02/2024 09:13:53 07/01/20 24 07/02/2024 COMP. METAB OLIC PANEL (14) calcium 9.8 mg/dL 8.7-10 .3 Not Available [facility] ([facility]) [address] [facility], [place], [address], 07/02/2024 09:13:53 07/01/20 24 07/02/2024 COMP. METAB OLIC PANEL (14) protein, total 7.0 g/dL 6.0-8. 5 Not Available [facility] ([facility]) [address] [facility] [place], [address], 07/02/2024 09:13:53 07/01/20 24 07/02/2024 COMP. METAB OLIC PANEL (14) albumin 4.3 g/dL 3.9-4. 9 Not Available [facility] ([facility]) [address] [facility] [place], [address], 07/02/2024 09:13:53 07/01/20 24 07/02/2024 COMP. METAB OLIC PANEL (14) globulin, total 2.7 g/dL 1.5-4. 5 Not Available [facility] ([facility]) [address] [facility], [place], [address], 07/02/2024 09:13:53 07/01/20 24 07/02/2024 COMP. METAB OLIC PANEL (14) bilirubin, total 0.9 mg/dL 0.0-1. 2 Not Available [facility] ([facility]) [address] [facility] [place], [address], 07/02/2024 09:13:53 07/01/20 24 07/02/2024 COMP. METAB OLIC PANEL (14) alkaline phosphatase 111 IU/L 44-121 Not Available [facility] ([facility]) [address] [facility] [place], [address], 07/02/2024 09:13:53 07/01/20 24 07/02/2024 COMP. METAB OLIC PANEL (14) AST (SGOT) 30 IU/L 0-40 Not Available [facility] ([facility]) [address] [facility] [place], [address], 07/02/2024 09:13:53 07/01/20 24 07/02/2024 COMP. METAB OLIC PANEL (14) ALT (SGPT) 21 IU/L 0-32 Not Available [facility] ([facility]) [address] [facility] [place], [address], 07/02/2024 09:13:53 07/01/20 24 07/02/2024 CBC WITH DIFFE RENTI AL/PL ATELE T WBC 8.7 x10e3 /uL 3.4-10 .8 Not Available [facility] ([facility]) [address] [facility], [place], [address], 07/02/2024 09:13:54 07/01/20 24 07/02/2024 CBC WITH DIFFE RENTI AL/PL ATELE T RBC 4.78 x10e6 /uL 3.77-5 .28 Not Available [facility] ([facility]) [address] [facility], [place], [address], 07/02/2024 09:13:54 07/01/20 24 07/02/2024 CBC WITH DIFFE RENTI AL/PL ATELE T hemoglobin 14.8 g/dL 11.1-1 5.9 Not Available [facility] ([facility]) [address] [facility] [address], [place], [address], 07/02/2024 09:13:54 07/01/20 24 07/02/2024 CBC WITH DIFFE RENTI AL/PL ATELE T hematocrit 44.8 % 34.0-4 6.6 Not Available [facility] ([facility]) [address] [facility] [address], [place], [address], 07/02/2024 09:13:54 07/01/20 24 07/02/2024 CBC WITH DIFFE RENTI AL/PL ATELE T MCV 94 fL 79-97 Not Available [facility] ([facility]) [address], [place], [address], 07/02/2024 09:13:54 07/01/20 24 07/02/2024 CBC WITH DIFFE RENTI AL/PL ATELE T MCH 31.0 pg 26.6-3 3.0 Not Available [facility] ([facility]) [address] [facility] [address], [place], [address], 07/02/2024 09:13:54 07/01/20 24 07/02/2024 CBC WITH DIFFE RENTI AL/PL ATELE T MCHC 33.0 g/dL 31.5-3 5.7 Not Available [facility] ([facility]) [address], [place], [address], 07/02/2024 09:13:54 07/01/20 24 07/02/2024 CBC WITH DIFFE RENTI AL/PL ATELE T RDW 12.6 % 11.7-1 5.4 Not Available [facility] ([facility]) [address] [facility] [address], [place], [address], 07/02/2024 09:13:54 07/01/20 24 07/02/2024 CBC WITH DIFFE RENTI AL/PL ATELE T platelets 303 x10e3 /uL 150-45 0 Not Available [facility] ([facility]) [address] [facility], [place], [address], 07/02/2024 09:13:54 07/01/20 24 07/02/2024 CBC WITH DIFFE RENTI AL/PL ATELE T neutrophils 64 % notest ab. Not Available [facility] ([facility]) [address], [place], [address], 07/02/2024 09:13:54 07/01/20 24 07/02/2024 CBC WITH DIFFE RENTI AL/PL ATELE T lymphs 20 % notest ab. Not Available [facility] ([facility]) [address] [facility], [place], [address], 07/02/2024 09:13:54 07/01/20 24 07/02/2024 CBC WITH DIFFE RENTI AL/PL ATELE T monocytes 9 % notest ab. Not Available [facility] ([facility]) [address] [facility], [place], [address], 07/02/2024 09:13:54 07/01/20 24 07/02/2024 CBC WITH DIFFE RENTI AL/PL ATELE T eos 5 % notest ab. Not Available [facility] ([facility]) [address] [facility], [place], [address], 07/02/2024 09:13:54 07/01/20 24 07/02/2024 CBC WITH DIFFE RENTI AL/PL ATELE T basos 1 % notest ab. Not Available [facility] ([facility]) [address], [place], [address], 07/02/2024 09:13:54 07/01/20 24 07/02/2024 CBC WITH DIFFE RENTI AL/PL ATELE T neutrophils (absolute) 5.6 x10e3 /uL 1.4-7. 0 Not Available [facility] ([facility]) [address], [place], [address], 07/02/2024 09:13:54 07/01/20 24 07/02/2024 CBC WITH DIFFE RENTI AL/PL ATELE T lymphs (absolute) 1.8 x10e3 /uL 0.7-3. 1 Not Available [facility] ([facility]) [address] [place], [address], 07/02/2024 09:13:54 07/01/20 24 07/02/2024 CBC WITH DIFFE RENTI AL/PL ATELE T monocytes(ab solute) 0.8 x10e3 /uL 0.1-0. 9 Not Available [facility] ([facility]) [address], [place], [address], 07/02/2024 09:13:54 07/01/20 24 07/02/2024 CBC WITH DIFFE RENTI AL/PL ATELE T eos (absolute) 0.4 x10e3 /uL 0.0-0. 4 Not Available [facility] ([facility]) [address], [place], [address], 07/02/2024 09:13:54 07/01/20 24 07/02/2024 CBC WITH DIFFE RENTI AL/PL ATELE T baso (absolute) 0.1 x10e3 /uL 0.0-0. 2 Not Available [facility] ([facility]) [address] [facility], [place], [address], 07/02/2024 09:13:54 07/01/20 24 07/02/2024 CBC WITH DIFFE RENTI AL/PL ATELE T immature granulocytes 1 % notest ab. Not Available [facility] ([facility]) [address], [place], [address], 07/02/2024 09:13:54 07/01/20 24 07/02/2024 CBC WITH DIFFE RENTI AL/PL ATELE T immature grans (abs) 0.0 x10e3 /uL 0.0-0. 1 Not Available [facility] ([facility]) [address] [place], [address], 07/02/2024 09:13:54 03/06/20 25 03/07/2025 LIPID PANEL cholesterol, total 169 mg/dL 100-19 9 Not Available [facility] ([facility]) [address] [place], [address], 03/07/2025 07:07:14 03/06/20 25 03/07/2025 LIPID PANEL triglyceride s 186 mg/dL 0-149 above high normal Not Available [facility] ([facility]) [address] [facility], [place], [address], 03/07/2025 07:07:14 03/06/20 25 03/07/2025 LIPID PANEL HDL cholesterol 47 mg/dL >39 Not Available [facility] ([facility]) [address] [facility] [place], [address], 03/07/2025 07:07:14 03/06/20 25 03/07/2025 LIPID PANEL VLDL cholesterol nayana 32 mg/dL 5-40 Not Available [facility] ([facility]) [address], [place], [address], 03/07/2025 07:07:14 03/06/20 25 03/07/2025 LIPID PANEL LDL chol calc ([facility]) 90 mg/dL 0-99 Not Available [facility] ([facility]) [address] [facility] [place], [address], 03/07/2025 07:07:14 03/06/20 25 03/07/2025 COMP. METAB OLIC PANEL (14) glucose 83 mg/dL 70-99 Not Available [facility] ([facility]) [address] [place], [address], 03/07/2025 07:07:15 03/06/20 25 03/07/2025 COMP. METAB OLIC PANEL (14) BUN 11 mg/dL 8-27 Not Available [facility] ([facility]) [address] [facility] [place], [address], 03/07/2025 07:07:15 03/06/20 25 03/07/2025 COMP. METAB OLIC PANEL (14) creatinine 0.82 mg/dL 0.57-1 .00 Not Available [facility] ([facility]) [address] [place], [address], 03/07/2025 07:07:15 03/06/20 25 03/07/2025 COMP. METAB OLIC PANEL (14) eGFR 79 mL/mi n/1.7 3 >59 Not Available [facility] ([facility]) [address] [place], [address], 03/07/2025 07:07:15 03/06/20 25 03/07/2025 COMP. METAB OLIC PANEL (14) BUN/creatini ne ratio 13 12-28 Not Available [facility] ([facility]) [address] [facility] [place], [address], 03/07/2025 07:07:15 03/06/20 25 03/07/2025 COMP. METAB OLIC PANEL (14) sodium 139 mmol/ L 134-14 4 Not Available [facility] ([facility]) [address] [facility] [place], [address], 03/07/2025 07:07:15 03/06/20 25 03/07/2025 COMP. METAB OLIC PANEL (14) potassium 3.9 mmol/ L 3.5-5. 2 Not Available [facility] ([facility]) [address] [facility] [place], [address], 03/07/2025 07:07:15 03/06/20 25 03/07/2025 COMP. METAB OLIC PANEL (14) chloride 101 mmol/ L 96-106 Not Available [facility] ([facility]) [address] [place], [address], 03/07/2025 07:07:15 03/06/20 25 03/07/2025 COMP. METAB OLIC PANEL (14) carbon dioxide, total 23 mmol/ L 20-29 Not Available [facility] ([facility]) [address] [place], [address], 03/07/2025 07:07:15 03/06/20 25 03/07/2025 COMP. METAB OLIC PANEL (14) calcium 9.4 mg/dL 8.7-10 .3 Not Available [facility] ([facility]) [address] [place], [address], 03/07/2025 07:07:15 03/06/20 25 03/07/2025 COMP. METAB OLIC PANEL (14) protein, total 6.8 g/dL 6.0-8. 5 Not Available [facility] ([facility]) [address] [facility] [place], [address], 03/07/2025 07:07:15 03/06/20 25 03/07/2025 COMP. METAB OLIC PANEL (14) albumin 4.3 g/dL 3.9-4. 9 Not Available [facility] ([facility]) [address] [facility] [place], [address], 03/07/2025 07:07:15 03/06/20 25 03/07/2025 COMP. METAB OLIC PANEL (14) globulin, total 2.5 g/dL 1.5-4. 5 Not Available [facility] ([facility]) [address] [place], [address], 03/07/2025 07:07:15 03/06/20 25 03/07/2025 COMP. METAB OLIC PANEL (14) bilirubin, total 0.8 mg/dL 0.0-1. 2 Not Available [facility] ([facility]) [address] [facility] [place], [address], 03/07/2025 07:07:15 03/06/20 25 03/07/2025 COMP. METAB OLIC PANEL (14) alkaline phosphatase 110 IU/L 44-121 Not Available [facility] ([facility]) [address] [facility] [place], [address], 03/07/2025 07:07:15 03/06/20 25 03/07/2025 COMP. METAB OLIC PANEL (14) AST (SGOT) 22 IU/L 0-40 Not Available [facility] ([facility]) [address] [facility] [place], [address], 03/07/2025 07:07:15 03/06/20 25 03/07/2025 COMP. METAB OLIC PANEL (14) ALT (SGPT) 13 IU/L 0-32 Not Available [facility] ([facility]) [address], [place], [address], 03/07/2025 07:07:15 03/06/20 25 03/07/2025 CBC WITH DIFFE RENTI AL/PL ATELE T WBC 9.2 x10e3 /uL 3.4-10 .8 Not Available [facility] ([facility]) [address] [facility], [place], [address], 03/07/2025 07:07:15 03/06/20 25 03/07/2025 CBC WITH DIFFE RENTI AL/PL ATELE T RBC 4.65 x10e6 /uL 3.77-5 .28 Not Available [facility] ([facility]) [address] [facility], [place], [address], 03/07/2025 07:07:15 03/06/20 25 03/07/2025 CBC WITH DIFFE RENTI AL/PL ATELE T hemoglobin 14.4 g/dL 11.1-1 5.9 Not Available [facility] ([facility]) [address] [facility], [place], [address], 03/07/2025 07:07:15 03/06/20 25 03/07/2025 CBC WITH DIFFE RENTI AL/PL ATELE T hematocrit 44.1 % 34.0-4 6.6 Not Available [facility] ([facility]) [address] [facility], [place], [address], 03/07/2025 07:07:15 03/06/20 25 03/07/2025 CBC WITH DIFFE RENTI AL/PL ATELE T MCV 95 fL 79-97 Not Available [facility] ([facility]) [address] [facility], [place], [address], 03/07/2025 07:07:15 03/06/20 25 03/07/2025 CBC WITH DIFFE RENTI AL/PL ATELE T MCH 31.0 pg 26.6-3 3.0 Not Available [facility] ([facility]) [address] [facility], [place], [address], 03/07/2025 07:07:15 03/06/20 25 03/07/2025 CBC WITH DIFFE RENTI AL/PL ATELE T MCHC 32.7 g/dL 31.5-3 5.7 Not Available [facility] ([facility]) [address] [facility], [place], [address], 03/07/2025 07:07:15 03/06/20 25 03/07/2025 CBC WITH DIFFE RENTI AL/PL ATELE T RDW 12.7 % 11.7-1 5.4 Not Available [facility] ([facility]) [address] [facility], [place], [address], 03/07/2025 07:07:15 03/06/20 25 03/07/2025 CBC WITH DIFFE RENTI AL/PL ATELE T platelets 258 x10e3 /uL 150-45 0 Not Available [facility] ([facility]) [address] [facility], [place], [address], 03/07/2025 07:07:15 03/06/20 25 03/07/2025 CBC WITH DIFFE RENTI AL/PL ATELE T neutrophils 71 % notest ab. Not Available [facility] ([facility]) [address] [place], [address], 03/07/2025 07:07:15 03/06/20 25 03/07/2025 CBC WITH DIFFE RENTI AL/PL ATELE T lymphs 15 % notest ab. Not Available [facility] ([facility]) [address] [place], [address], 03/07/2025 07:07:15 03/06/20 25 03/07/2025 CBC WITH DIFFE RENTI AL/PL ATELE T monocytes 7 % notest ab. Not Available [facility] ([facility]) [address] [place], [address], 03/07/2025 07:07:15 03/06/20 25 03/07/2025 CBC WITH DIFFE RENTI AL/PL ATELE T eos 7 % notest ab. Not Available [facility] ([facility]) [address] [facility], [place], [address], 03/07/2025 07:07:15 03/06/20 25 03/07/2025 CBC WITH DIFFE RENTI AL/PL ATELE T basos 0 % notest ab. Not Available [facility] ([facility]) [address] [facility], [place], [address], 03/07/2025 07:07:15 03/06/20 25 03/07/2025 CBC WITH DIFFE RENTI AL/PL ATELE T neutrophils (absolute) 6.5 x10e3 /uL 1.4-7. 0 Not Available [facility] ([facility]) [address] [facility], [place], [address], 03/07/2025 07:07:15 03/06/20 25 03/07/2025 CBC WITH DIFFE RENTI AL/PL ATELE T lymphs (absolute) 1.4 x10e3 /uL 0.7-3. 1 Not Available [facility] ([facility]) [address] [facility], [place], [address], 03/07/2025 07:07:15 03/06/20 25 03/07/2025 CBC WITH DIFFE RENTI AL/PL ATELE T monocytes(ab solute) 0.7 x10e3 /uL 0.1-0. 9 Not Available [facility] ([facility]) [address] [facility], [place], [address], 03/07/2025 07:07:15 03/06/20 25 03/07/2025 CBC WITH DIFFE RENTI AL/PL ATELE T eos (absolute) 0.6 x10e3 /uL 0.0-0. 4 above high normal Not Available [facility] ([facility]) [address] [facility], [place], [address], 03/07/2025 07:07:15 03/06/20 25 03/07/2025 CBC WITH DIFFE RENTI AL/PL ATELE T baso (absolute) 0.0 x10e3 /uL 0.0-0. 2 Not Available [facility] ([facility]) [address] [facility], [place], [address], 03/07/2025 07:07:15 03/06/20 25 03/07/2025 CBC WITH DIFFE RENTI AL/PL ATELE T immature granulocytes 0 % notest ab. Not Available [facility] ([facility]) [address] [facility], [place], [address], 03/07/2025 07:07:15 03/06/20 25 03/07/2025 CBC WITH DIFFE RENTI AL/PL ATELE T immature grans (abs) 0.0 x10e3 /uL 0.0-0. 1 Not Available [facility] ([facility]) [address] [facility], [place], [address], 03/07/2025 07:07:15 08/04/19 25 03/20/2023 MAMMO , scree maria antonia, digit al, bilat eral No observ ation record ed. BARCODE Not Available 2024 19:59:41 08/16/19 25 08/16/2024 MAMMO , scree maria antonia, digit al, bilat eral No observ ation record ed. comfort [facility] [address], [place], [address], 01/10/2025 14:47:50 01/12/20 25 03/19/2022 DEXA No observ ation record ed. [facility] [address], [place], [address], 01/16/2025 12:44:35 03/06/20 25 02/14/2025 US, echo ardio gram No observ ation record ed. [facility] [address], [place], [address], 03/17/2025 15:25:42 03/28/20 25 03/21/2025 nerve condu ction study No observ ation record ed. [facility] [address], [place], [address], 04/07/2025 15:51:56 Result Notes None recorded. Problems Name Problem SNOMED Code Status Onset Date Resolution Date Notes Provider Name and Address Organization Details Recorded Time Hyperlipidemia 27516845 Active 2023 Jina Palmer MA [facility] [place] - [facility] 4 14:50:58 Gastroesophage al reflux disease without esophagitis 792625163 Active 2023 Kavitha Albert MD Attn: Lilia johnson,[address] [place], [address], [facility] - [facility] 4 22:44:13 Osteoporosis 18146348 Active 2023 Kavitha Albert MD Attn: Lilia johnson,[address] [place], [address], [facility] - [facility] 4 22:44:14 Osteoarthritis 247536692 Active 2023 Kavitha Albert MD Attn: Lilia johnson,[address] [place], [address], [facility] - [facility] 4 12:04:55 Problem Notes None recorded. Procedures Surgical History Date Name Laterality Status Provider Name and Address Organization Details Recorded Time Cholecystectomy completed Anna Mcgill MA [facility] 11/25/2023 14:04:08 Hernia Repair completed Anna Mcgill MA [facility] 11/25/2023 14:04:14 ligation of bilateral fallopian tubes completed Anna Mcgill MA [facility] 11/25/2023 14:04:22 section completed Anna Mcgill MA [facility] 11/25/2023 14:04:27 Tonsillectomy completed Anna McgillLESA [place] - [facility] 11/25/2023 14:04:34 Imaging Results None recorded. Procedure Notes None recorded. Medical Equipment None Reported. Allergies Allergen ID Allergen Name Allergen Category Reaction Reaction Severity Criticality Documentation Date Start Date Code Code System Note Provider Name and Address Organization Details Recorded Time 946909 Substance with sulfonami de structure and antibacte rial mechanism of action (substanc e) medicatio n Not available Not available Not available 11/25/2023 05751 8003 SNOMED Anna Mcgill LESA frye, [facility] 4 13:59:52 162509 Iodinated contrast media (substanc e) medicatio n Not available Not available Not available 01/09/2025 23656 2003 SNOMED Leah HernandesLESA uday, [facility] 5 13:56:50 Medications Name Sig Start Date Stop Date Status Note LastModified by Organization Details LastModified Time amoxicillin 500 mg capsule TAKE 1 CAPSULE BY MOUTH EVERY 8 HOURS UNTIL GONE 01/09 completed Not Available Not Available Not Available atorvastati n 40 mg tablet Take 1 tablet by mouth once daily 2024 active Not Available Not Available Not Avai lable azithromyci n 250 mg tablet TAKE 2 TABLETS BY MOUTH ON DAY 1, AND THEN TAKE 1 TABLET BY MOUTH ONCE A DAY ON DAY 2 THROUGH DAY 5 01/09 completed Not Available Not Available Not Available sertraline 100 mg tablet TAKE 1 & 1/2 (ONE & ONE-HALF) TABLETS BY MOUTH ONCE DAILY active Not Available Not Available No t Available acetaminoph en 300 mg-codeine 15 mg tablet TAKE 1 TABLET BY MOUTH EVERY 6 HOURS NEEDED 11/24 completed Not Available Not Available Not Available methylpredn isolone 4 mg tablets in a dose pack TAKE BY MOUTH DIRECTED ON INSIDE OF PACKAGE 03/06 completed Not Available Not Available Not Available diazepam 5 mg tablet TAKE ONE (1) TABLET ONE (1) HOUR PRIOR TO DENTAL APPOINTME NT. BRING THE OTHER TABLET WITH YOU TO THE APPOINTME NT. YOU MUST HAVE A LAP POLISHER. 11/24 completed Not Available Not Available Not Available chlorhexidi ne gluconate 0.12 % mouthwash PLACE 15 ML IN THE MOUTH 2 TIMES PER DAY (AFTER MEALS) SWISH IN MOUTH FOR 30 SECONDS THEN SPIT OUT. 11/24 completed Not Available Not Available Not Available Vitals Date Recorded Body height Body mass index (BMI) Body weight Heart rate Oxygen saturation Oxygen saturation in Arterial blood by Pulse oximetry Systolic And Diastolic Provider Name and Address Organization Details Last Updated DateTime 4 166.37 cm 33 kg/m2 37091.2 2 g 75 /min 97 % 97 % 132/80 mm[Hg] Anna Mcgill MA [facility] 4 14:03:47 Date Recorded Body height Body mass index (BMI) Body weight Heart rate Oxygen saturation Oxygen saturation in Arterial blood by Pulse oximetry Systolic And Diastolic Provider Name and Address Organization Details Last Updated DateTime 5 166.37 cm 31.5 kg/m2 85262.5 3 g 70 /min 96 % 96 % 122/78 mm[Hg] Leah Trilla [facility] 5 13:56:29 Date Recorded Body height Body mass index (BMI) Body weight Heart rate Oxygen saturation Oxygen saturation in Arterial blood by Pulse oximetry Systolic And Diastolic Provider Name and Address Organization Details Last Updated DateTime 5 166.37 cm 32.6 kg/m2 88578.8 8 g 68 /min 96 % 96 % 138/94 mm[Hg] Leah Hernandes [facility] 5 14:00:37 Date Recorded Body height Body mass index (BMI) Body weight Heart rate Oxygen saturation Oxygen saturation in Arterial blood by Pulse oximetry Systolic And Diastolic Provider Name and Address Organization Details Last Updated DateTime 4 166.37 cm 30.5 kg/m2 80454.6 2 g 79 /min 97 % 97 % 122/82 mm[Hg] Leah Hernandes [facility] 4 14:24:43 Social History Question Answer Notes LastModified by Organizat ion Details LastModified Time Tobacco Smoking Status Former Smoker Anna Mcgill MA [facility], [facility] 11/25/2023 14:01:27 Do You Have An Advance Directive? No Information n ot available 07/01/2024 Are You Blind Or Do You Have Difficulty Seeing? No Information n ot available 11/25/2023 In The 14 Days Before Symptom Onset, Have You Had Close Contact With A Laboratory-confirm ed COVID-19 While That Case Was Ill? No Information n ot available 07/01/2024 In The 14 Days Before Symptom Onset, Have You Had Close Contact With A Person Who Is Under Investigation For COVID-19 While That Person Was Ill? No Information not available 07/01/2024 Have You Been To An Area Known To Be High Risk For COVID-19? No Information not available 07/01/2024 Are You Deaf Or Do You Have Serious Difficulty Hearing? Yes Information not available 11/25/2023 Are There Any Guns Present In Your Home? No Information not available 07/01/2024 What Was The Date Of Your Most Recent Tobacco Screening? 03/06/2025 Information not available 03/06/2025 What Is Your Relationship Status? Information not available 11/25/2023 Do You Use Your Seat Belt Or Car Seat Routinely? Yes Information not available 11/25/2023 Do You Have Smoke And Carbon Monoxide Detectors In Your Home? Yes Information not available 07/01/2024 How Much Tobacco Do You Smoke? 0.5 PPD Information not available 11/25/2023 Do You Use Sunscreen Routinely? No Information not available 07/01/2024 Has Tobacco Cessation Counseling Been Provided? Yes Information not available 03/06/2025 On What Date Was Tobacco Cessation Counseling Provided? 03/06/2025 Information not available 03/06/2025 How Many Years Have You Smoked Tobacco? 40 Information not available 11/25/2023 Sex: Female Functional Status Question Answer Note LastModified by Organizat ion Details LastModified Time Do you use any illicit or recreational drugs? No Information not available 01/09/2025 Do you or have you ever used any other forms of tobacco or nicotine? No Information not available 01/09/2025 What is your level of alcohol consumption? Occasional Information not available 11/25/2023 Mental Status Question Answer Note LastModified by Organization D etails LastModified Time Do you feel stressed (tense, restless, nervous, or anxious, or unable to sleep at night)? [id number] Information not available 11/25/2023 Family History Relationship Description Onset Age of this Age Resolved Age Notes LastModified by Organization Details LastModified Time Father Heart disease [email or web address] Not available 2023 14:05:03 Father Hypertensive disorder [email or web address] Not available 2023 14:08:05 Mother Heart disease [email or web address] Not available 2023 14:05:03 Mother Hypertensive disorder [email or web address] Not available 2023 14:08:05 Mother Hypercholest erolemia [email or web address] Not available 2023 14:08:11 Mother Osteoporosis [email or web address] Not avai lable 11/25/2023 14:08:18 Notes:T cell lymphoma- grand daughter Medical History Condition Response Muscle, Joint, or Bone Problems Y Acid Reflux (GERD) Y High Cholesterol Y Allergies Y Osteoporosis Y Gynecological HistoryNo gynecological history recorded. Obstetrics History GPAL:G 0 P 0 0 0 0 Immunizations Vaccine Type Date Status Note Provider Nam e and Address Organization Details Recorded Time Influenza, high-dose, trivalent, PF 3 completed Not Available [facility] 03/06/2025 13:44:30 Influenza, split virus, quadrivalent, preservative 5 completed Not Available [facility] 03/06/2025 13:44:30 Influenza, split virus, quadrivalent, preservative 8 completed Not Available [facility] 03/06/2025 13:44:30 Influenza, split virus, quadrivalent, PF 9 completed Not Available [facility] 03/06/2025 13:44:30 Influenza, split virus, quadrivalent, PF 0 completed Not Available [facility] 03/06/[facility]25 13:44:30 COVID-19, mRNA, LNP-S, PF, 30 mcg/0.3 mL dose 1 completed Not Available [facility] 03/06/2025 13:44:30 COVID-19, mRNA, LNP-S, PF, 30 mcg/0.3 mL dose 1 completed Not Available [facility] 03/06/2025 13:44:30 Influenza, split virus, quadrivalent, PF 1 completed Not Available [facility] 03/06/2025 13:44:30 COVID-19, mRNA, LNP-S, PF, 30 mcg/0.3 mL dose 1 completed Not Available [facility] 03/06/2025 13:44:30 Influenza, split virus, quadrivalent, PF 2 completed Not Available [facility] 03/06/2025 13:44:30 COVID-19, mRNA, LNP-S, bivalent, PF, 30 mcg/0.3 mL dose 2 completed Not Available [facility] 03/06/2025 13:44:30 Influenza, split virus, quadrivalent, PF 3 completed Not Available [facility] 03/06/2025 13:44:30 Influenza, high-dose, trivalent, PF 4 completed Not Available [facility] 03/06/2025 13:44:30 Pneumococcal conjugate PCV20, polysaccharide [id number] conjugate, adjuvant, PF 4 completed Not Available [facility] 03/06/2025 13:44:30 Tdap 5 completed Maya Lester MA [facility] 01/09/2025 14:09:27 Past Encounters Encounter ID Performer Location Encounter Start Date Encounter Closed Date Diagnosis/Indication Diagnosis SNOMED-CT Code Diagnosis ICD10 Code Diagnosis IMO Codes Diagnosis Note [id number] Kavitha Albert MD [facility] (Adult Med) [address] [place] [id number] 11/25/2023 13:49:39 11/25/2023 14:55:41 Hyperlipidemia 07936133 E78.5 Long-term drug therapy 226946006 Z79.899 Screening for malignant neoplasm of colon 518808763 Z12.11 Gastroesop hageal reflux disease without esophagitis 665015809 K21.9 Osteoporosis 44345242 M8 1.0 [id number] Kavitha Albert MD [facility] (Adult Med) [address] [place] [id number] 07/01/2024 14:11:31 07/01/2024 14:39:51 Body mass index 30+ - obesity 312635654 Z68.30 Obesity 524277514 E66.9 Hyperlipidemia 86686897 E78.5 Long-term drug therapy 800126853 Z79.899 Gastroesop hageal reflux disease without esophagitis 363643334 K21.9 Osteoarthritis 996449422 M19.90 [id number] Kavitha Albert MD [facility] [employer] [address] [place] [address] 01/09/2025 13:47:10 01/09/2025 14:18:43 Body mass index 30+ - obesity 108988112 Z68.31 813707 Obese class I 1910007452 53863 E66.811 7695470759 Requires d iphtheria, tetanus and pertussis vaccination 393494190 Z23 641602 Hyperlipidemia 58322219 E78.5 Gastroesop hageal reflux disease without esophagitis 455126243 K21.9 Osteoarthritis 304994876 M19.90 Systolic murmur 48161125 R01.1 257513 Paresthesia 66455033 R20 .2 52507 Long-term current use of drug therapy 538725510 Z79.899 36387118 [id number] Kavitha Albret MD [facility] [employer] [address] [place] [address] 03/06/2025 13:43:27 03/06/2025 14:41:05 Body mass index 30+ - obesity 378374397 Z68.32 833228 Obese class I 1324407597 18466 E66.811 E66.3 3434191127 Cervical radiculopathy 16296418 M54.12 636146 Health Concerns Section Related Observation LastModified by Organization Detai ls LastModified Time None Recorded Concern Status LastModified by Organization Details LastModified Time None Recorded Advance Directives Directive N: Payers Insurance Date Sequence Insurance Name Policy Number Policy Silverio Covered Member ID Silverio Member ID Guarantor Name 03/13/2025 1 [employer] (MEDICARE REPLACEMENT/ADVAN TAGE - HMO) [id number] Romina Higuera [id number] Romina Higuera 01/09/2025 1 [facility] Damari Higuera [id number] Romina Higuera 01/09/2025 1 [facility] - [employer]ED NETWORK PLAN - [employer] NETWORK [id number] Romina Higuera [id number] Romina Higuera 01/09/2025 [facility]uera [id number] Romina Higuera Notes Date Note Type Note Provider Name and Address Organization Details Recorded Time 11/25/2023 text/html 63-year-old with history of hyperlipidemia anxiety osteoporosis GERD comes in for follow-up of medical problems does not take anything for osteoporosis because of a jaw issue GERD is responsive to namb-bjh-gmfcfcm therapy she takes her sertraline for anxiety with no SI or HI atorvastatin for her dyslipidemia ever since she has had COVID she has had some problems with just being kind of foggy mentally Kavitha Albert MD Attn: Accounting, [address] [place], [address], [place] [facility] 11/30/2023 22:45:45 07/01/2024 text/html hyperlipidemia she is taking her atorvastatin no side effects. Osteoarthritis she was she was Tylenol that seems to be doing fine anxiety doing well on her sertraline without any side effects. 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
--- OUTSIDE RECORDS SUMMARY | 2025-05-08 14:08 | XMS_ITS | Encounter Summary ---
Author Organization [facility] Address [address] [place] [address] Care Team Providers Care Enrollment Management Manager Name Role Phone Bert Cole MD Primary Care Provider [phone] Reason for Visit * Reason Onset Date Comments MEDICATION REFILL 12/02/2018 Encounter Details Date Type Department Care Team (Late st Contact Info) Description 12/02/2018 Refill [facility] [address] [place] [address] Gabby Higginbotham MD [facility] [place] [id number] MEDICATION REFILL Social History Tobacco Use Types Packs/Day Years Used Date Smoking Tobacco: Never Smokeless Tobacco: Never Alcohol Use Standard Drinks/Week Comments Yes 0 (1 standard drink = 0.6 oz pur e alcohol) ocass. 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
== END 2025-05-08 12:59 | disposition home or self-care (01) ==
PROVIDERS: PCP Internal Medicine; Visit Provider Orthopaedic Surgery
DX: E78.5 Hyperlipidemia, unspecified (principal); F17.200 Nicotine dependence, unspecified, uncomplicated; R94.31 Abnormal electrocardiogram [ECG] [EKG]
CPT/HCPCS: 93005

== ENCOUNTER 2025-05-31 08:49 | Outpatient (CLI) | payer MEDICARE, SELFPAY ==
--- OUTSIDE RECORDS SUMMARY | 1999-06-28 02:00 | XMS_ITS | Continuity of Care Document ---
Author Organization [facility] Address [address] [place] [address] [address] [place] [address] Phone Care Team Providers Care Golf Ball Marker Name Role Phone Toan Glaser Unavailable Unavailable Advance Directives Directive Yes / No Effective Date File Name No Information Encounters Encounter Description Practice Location Reason(s) For Visit Diagnoses Date Provider Providers Copied on Encounter [facility], [address] [place] [address] [address], [place], [place], [id number], [place] tel:[phone] [facility] No Information Dec-0 3-199 9 Doisy Edward. [address] [facility] , [address], [place], [address], [place]. tel:[phone] Family History Family Member Type Diagnosis Age At Onset No Information Payers Payer name Insurance type Covered libertarian ID Authoriza tion(s) [employer] SOI CI [id number] Social History Type Description Quantity Date Captured Comments Sex Female Smoking Status No Information Chief Complaint And Reason For Visit No Information Reason For Referral Reason For Referral No Information History Of Present Illness Encounter Date Complaint History Of Prese nt Illness No Information Functional Status Date Functional Assessmen t No Information Instructions Date Instruction Additional Infor mation No Information Assessments Type Assessment Date No Information Patient Care Teams Name Effective Dates (start - stop) Status Members No Information
--- OUTSIDE RECORDS SUMMARY | 2025-02-14 05:00 | XMS_ITS | Continuity of Care Document ---
Author Organization [facility] Address [address] [place] [address] Phone Care Team Providers Care Traditional Maori Health Practitioner Name Role Phone Ronni ORO, FACAdam, Guerita Unavailable Unavailab le Procedures Procedure Date TTE W/DOPPLER, COMPLETE Results Test Name Date and Time Measure Units Reference Range Abnormal Flag Status Comments Panel Description: Not Available Final [{Url}] <Url iRemMajorVer kayla=1 iRemMinorVer kayla=5.9.4 seq_no=ed3b [id number] template_nam e=PacsEx>< Path><![CDAT A[[email or web address] om/?[email or web address] 4RJIj7O4RhBY LpZWfYX1+oE5 C0UNOvYedx/+ X/vm3eZzhqSm Vec/8Oh9Y1bu atsFHcAB2tTD DbDWmguEusY/ jV0k0wxuLx72 8XpU1gR2oqxx cfPs+p7DMADN ]]></Path></ Url> Final Panel Description: ECHO Unknown Image ECHO 1 Advance Directives Directive Yes / No Effective Date File Name No Information Encounters Encounter Description Practice Location Reason(s) For Visit Diagnoses Date Provider Providers Copied on Encounter [facility] , [address] [place] [address], [id number], tel:[phone] [facility] Cardiac murmur, unspecified Ronni Dexter. [address] [place] [address], [id number], . tel:[phone] Referring Provider: Everton Albert, [address] [place], [address]. tel:[phone] Family History Family Member Type Diagnosis Age At Onset No Information Payers Payer name Insurance type Covered republican ID Authoriza tion(s) AARP [facility] ADVANTAGE PLAN 2 O [facility] [id number] 1 NO AUTH REQUIRED Social History Type Description Quantity Date Captured [...]
--- NOTE | 2025-05-31 | EST_ITS ---
Patient Info Name: Romina Higuera Age: 65 years : 1960 Gender: Female Ht: 60 in Wt: 196 lbs BSA: 1.99 m2 HR: 60 bpm BP: 199 / 101 mmHg Exam Date: 05/31/2025 9:32 AM Patient Status: O Admit Date: 05/31/2025 Exam Type: CA stress tyler w NM A regadenoson stress test was performed. Staff Referring Physician: Everton Albert Attending Provider: Everton Albert Exercise Technologist: Amy Mccormick Exercise Physician: Faustino Green DO Summary 1. 1. Negative lexiscan stress test for ischemic ST changes by ECG criteria. 2. 2. Baseline hypertension. 3. 3. Nuclear scan to follow and will be reported separately. Please correlate with it. 4. 4. Patient informed of the above results. Protocol: Lexiscan Stress ECG Details Stage: REST Duration (min): 1 min : 52 sec HR (bpm): 61 SBP (mmHg): 199 DBP (mmHg): 101 Stage: REST Duration (min): 14 min : 40 sec HR (bpm): 64 SBP (mmHg): 199 DBP (mmHg): 101 Stage: STAGE 1 Duration (min): 1 min : 0 sec HR (bpm): 82 SBP (mmHg): 199 DBP (mmHg): 101 Stage: RECOVERY Duration (min): 1 min : 0 sec HR (bpm): 80 SBP (mmHg): 192 DBP (mmHg): 95 Stage: RECOVERY Duration (min): 2 min : 0 sec HR (bpm): 79 SBP (mmHg): 192 DBP (mmHg): 95 Stage: RECOVERY Duration (min): 3 min : 0 sec HR (bpm): 77 SBP (mmHg): 192 DBP (mmHg): 95 Stage: RECOVERY Duration (min): 4 min : 0 sec HR (bpm): 74 SBP (mmHg): 208 DBP (mmHg): 100 Stage: RECOVERY Duration (min): 5 min : 0 sec HR (bpm): 75 SBP (mmHg): 207 DBP (mmHg): 100 Stage: RECOVERY Duration (min): 6 min : 0 sec HR (bpm): 82 SBP (mmHg): 207 DBP (mmHg): 100 Stage: RECOVERY Duration (min): 7 min : 0 sec HR (bpm): 76 SBP (mmHg): 207 DBP (mmHg): 100 Stage: RECOVERY Duration (min): 8 min : 0 sec HR (bpm): 73 SBP (mmHg): 192 DBP (mmHg): 109 Stage: RECOVERY Duration (min): 9 min : 0 sec HR (bpm): 71 SBP (mmHg): 192 DBP (mmHg): 109 Stage: RECOVERY Duration (min): 10 min : 0 sec HR (bpm): 70 SBP (mmHg): 192 DBP (mmHg): 109 Stage: RECOVERY Duration (min): 11 min : 0 sec HR (bpm): 71 SBP (mmHg): 212 DBP (mmHg): 103 Stage: RECOVERY Duration (min): 11 min : 5 sec HR (bpm): 71 SBP (mmHg): 212 DBP (mmHg): 103 Rest HR: 64 bpm Peak HR: 84 bpm Rest Sys BP: 199 mmHg Peak Sys BP: 212 mmHg Max Pred HR: 154 bpm % Max Pred HR: 55 % Target HR: 131 bpm Max RPP: 17,808 bpm*mmHg Termination Reason: Completed protocol Cardiac Symptoms: Shortness of breath Total Time: 1 min : 0 sec Rest Aguila BP: 101 mmHg Peak Aguila BP: 103 mmHg Total Dose: 0.4 mg Resting ECG Sinus rhythm, consider anterior infarct, age indeterminate. Stress ECG No ST changes. Arrhythmias None. Report Signatures
--- NOTE | ~2025-05-31 | NM_ITS ---
EXAMINATION: NM tyler stress w perfusion DATE: 05/31/2025 16:28 MEDICAL BILLING INSTRUCTOR INDICATION: Preop TECHNIQUE: Rest images were obtained following intravenous administration of 9.9 mCi Tc99m tetrofosmin (Myoview). The patient was infused intravenously with Lexiscan (regadenoson). Then, 31.8 mCi Tc99m tetrofosmin (Myoview) was administered intravenously, and stress images were obtained. Data was recon structed into short axis and horizontal and vertical long axis SPECT images. Gated SPECT images were also obtained. COMPARISON: None. FINDINGS: There is no definite reversible or fixed perfusion abnormality to suggest ischemia or infarction. There is no segmental wall motion abnormality. Left ventricular ejection fraction measures 79%. IMPRESSION: 1. No definite ischemia or infarct. 2. Normal left ventricular ejection fraction measuring 79%. Reviewed, dictated and finalized at location O. CAL BILLING INSTRUCTOR
--- OUTSIDE RECORDS SUMMARY | 2025-05-31 09:13 | XMS_ITS | Clinical Summary ---
Author Organization [facility] [employer] Address [address] [place] [address] Care Team Providers Care Instructor Hairspring Name Role Phone Bert Cole MD Primary Care Provider [phone] Source Comments [facility] [employer],non-owned Affiliates and Associated Physician Practices is amultiple site organization consisting of ambulatory clinics and hospital sitesin [place], [place], [place]. This disclosure is being madepursuant to the Care Everywhere program and may not contain all information available regarding this patient. 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) Comment: Negative: < 0.8 Indeterminate: 0.8 - 0.9 Positive: > 0.9 The CDC recommends that a positive HCV antibody result be followed up with a HCV Nucleic Acid Amplification test (017903). Blood specimen (specimen) BLOOD SPECIMEN / Unknown 11/25/2016 1:06 PM CDT 11/25/2016 Narrative [facility] ([facility]) - 11/26/2016 7:13 AM CDT Performed at: [address] [place] [id number] Documentation Writer: Joe Hopper PhD, Phone: [phone] Gabby Higginbotham MD LAB - CHEMISTRY ORDERA BLES Final Result Performing Organization Address City/[facility]/ZIP Co de Phone Number [facility] ([facility]) [address] [place] [address], [facility] from Last 3 Months or Most Recently Relevant to Health Maintenance Insurance [employer] Care Teams Instructor Hairspring Relationship Specialty Start Date End Date Bert Cole MD PCP - General 07/12/18
--- OUTSIDE RECORDS SUMMARY | 2025-05-31 09:13 | XMS_ITS | Encounter Summary ---
Author Organization [facility] Address [address] [place] [address] Care Team Providers Care Micro Lab Analyst Name Role Phone Bert Cole MD Primary Care Provider [phone] Reason for Visit * Reason Onset Date Comments MEDICATION REFILL 12/02/2018 Encounter Details Date Type Department Care Team (Late st Contact Info) Description 12/02/2018 Refill [facility] [address] [place] [address] Gabby Higginbotham MD [address] [id number] MEDICATION REFILL Social History Tobacco Use Types Packs/Day Years Used Date Smoking Tobacco: Never Smokeless Tobacco: Never Alcohol Use Standard Drinks/Week Comments Yes 0 (1 standard drink = 0.6 oz pur e alcohol) ocass. 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
== END 2025-05-31 08:50 | disposition home or self-care (01) ==
PROVIDERS: PCP Internal Medicine; Visit Provider Internal Medicine
DX: R94.31 Abnormal electrocardiogram [ECG] [EKG] (principal)
CPT/HCPCS: 78452; 93017; A9502; J2785

== ENCOUNTER 2025-06-05 00:24 | Day surgery (SDC) | payer MEDICARE, SELFPAY ==
--- OUTSIDE RECORDS SUMMARY | 1999-06-28 02:00 | XMS_ITS | Continuity of Care Document ---
Author Organization [facility] Address [address] [place] [address] [address] [place] [address] Phone Care Team Providers Care Hand Endband Cutter Name Role Phone Toan Glaser Unavailable Unavailable Advance Directives Directive Yes / No Effective Date File Name No Information Encounters Encounter Description Practice Location Reason(s) For Visit Diagnoses Date Provider Providers Copied on Encounter [facility], [address] [place] [address] [address], [place], [place], [id number], [place] tel:[phone] [facility] [place] No Information Dec-0 3-199 9 Doisy Edward. [address] [facility] , [address], [place], [address], [place]. tel:[phone] Family History Family Member Type Diagnosis Age At Onset No Information Payers Payer name Insurance type Covered democrat ID Authoriza tion(s) [employer] SOI CI [id number] Social History Type Description Quantity Date Captured [...]
--- OUTSIDE RECORDS SUMMARY | 1999-06-28 03:00 | XMS_ITS | Continuity of Care Document ---
Author Organization [facility] Address [address] [place] [address] [address] [place] [address] Phone Care Team Providers Care Paint Mixer Hand Name Role Phone Toan Glaser Unavailable Unavailable Advance Directives Directive Yes / No Effective Date File Name No Information Encounters Encounter Description Practice Location Reason(s) For Visit Diagnoses Date Provider Providers Copied on Encounter [facility], [address] [place] [address] [address], [place], [place], [id number], [place] tel:[phone] SEC [facility] [place] No Information Dec-0 3-199 9 Doisy Edward. [address] [facility] , [address], [place], [address], [place]. tel:[phone] Family History Family Member Type Diagnosis Age At Onset No Information Payers Payer name Insurance type Covered libertarian ID Authoriza tion(s) [employer] SOI CI [id number] Social History Type Description Quantity Date Captured [...]
--- OUTSIDE RECORDS SUMMARY | 2025-02-14 05:00 | XMS_ITS | Continuity of Care Document ---
Author Organization [facility] Address [address] [place] [address] Phone Care Team Providers Care Chief Human Resources Officer Name Role Phone Ronni ORO, FACAdma, Guerita Unavailable Unavailab le Procedures Procedure Date TTE W/DOPPLER, COMPLETE Results Test Name Date and Time Measure Units Reference Range Abnormal Flag Status Comments Panel Description: Not Available Final [{Url}] <Url iRemMajorVer kayla=1 iRemMinorVer kayla=5.9.4 seq_no=ed3b [id number] template_nam e=PacsEx>< Path><![CDAT A[[email or web address] om/?ZMDopoyW [id number] LpZWfYX1+oE5 H7VECkTykw/+ X/ws2nUfvbEf Vec/0Df5P9cb asaVBlBE5gAK DbDWmguEusY/ yK0i0vsnYq18 9ReM8bL2ylrn cfPs+y3JHRFO ]]></Path></ Url> Final Panel Description: ECHO Unknown Image ECHO 1 Advance Directives Directive Yes / No Effective Date File Name No Information Encounters Encounter Description Practice Location Reason(s) For Visit Diagnoses Date Provider Providers Copied on Encounter [facility] , [address] [place] [address], [id number], tel:[phone] [facility] Cardiac murmur, unspecified Ronni Dexter. [address] [place] [address], [id number], . tel:[phone] Referring Provider: Everton Albert, [address] [place] [place], [address]. tel:[phone] Family History Family Member Type Diagnosis Age At Onset No Information Payers Payer name Insurance type Covered constitution party ID Authoriza tion(s) AARP [facility] ADVANTAGE PLAN 2 O [facility] [id number] 1 NO AUTH REQUIRED Social History Type [...]
--- OUTSIDE RECORDS SUMMARY | 2025-02-14 06:00 | XMS_ITS | Continuity of Care Document ---
Author Organization [facility] Address [address] [place] [address] Phone Care Team Providers Care Associate Director Of Development Name Role Phone Ronni ORO, FACAdam, Guerita Unavailable Unavailab le Procedures Procedure Date TTE W/DOPPLER, COMPLETE Results Test Name Date and Time Measure Units Reference Range Abnormal Flag Status Comments Panel Description: Not Available Final [{Url}] <Url iRemMajorVer kayla=1 iRemMinorVer kayla=5.9.4 seq_no=ed3b [id number] template_nam e=PacsEx>< Path><![CDAT A[[email or web address] om/?ZMDopoyW 4PWOy8V6SnVQ LpZWfYX1+oE5 Q1GRScMjnn/+ X/hl0iHgyrRl Vec/1Yd8I8zs iazLXtLH8hGO DbDWmguEusY/ mG5t8xsmCy78 8OpT4bR1trgp cfPs+k4UICEB ]]></Path></ Url> Final Panel Description: ECHO Unknown Image ECHO 1 Advance Directives Directive Yes / No Effective Date File Name No Information Encounters Encounter Description Practice Location Reason(s) For Visit Diagnoses Date Provider Providers Copied on Encounter [facility] , [address] [place] [address], [id number], tel:[phone] [facility] Cardiac murmur, unspecified Ronni Dexter. [address] [place] [address], [id number], . tel:[phone] Referring Provider: Evreton Albert, [address] [place], [address]. tel:[phone] Family History Family Member Type Diagnosis Age At Onset No Information Payers Payer name Insurance type Covered alliance party ID Authoriza tion(s) AARP [facility] ADVANTAGE PLAN 2 O [facility] [id number] 1 NO AUTH REQUIRED Social History Type [...]
[2025-05-03 13:05] VITALS: BMI 32.1
--- NOTE | 2025-05-03 13:14 | PC.NURSE ---
[facility] has started construction of its new state of the art ER which will open Spring 2026. With this, we anticipate parking may be a challenge for some our surgical patients and families. Parking spaces are limited but are available for all Surgical, obstetrics, and ER patients sharing this lot. If you arrive and find you are having a hard time finding a parking space, please note that we understand the challenges, please drive around the hospital and park near Hospital Entrance 1. When you enter this entrance, you can ask a volunteer to direct or take you back to the surgical waiting area to check in. We appreciate everyone?s understanding of these expected challenges while we build for your future. Report to the Outpatient Waiting Room, entrance under the green pavilion located off [address], at time __09:00am on date __05/10/25 . Planned Procedure Time: __11:00am .? Time changes happen often and if your time is changed the preop area will call you the afternoon before. - You and your visitor will be asked to self-screen and do not enter if you have any COVID symptoms. Please call surgeon if you need to reschedule. - A mask is optional within the hospital at this time. Patients may have clear liquids (water, carbonated beverages, clear teas, apple juice) until 3 hours prior to surgery with a maximum of 20 ounces. - No food from midnight until time of surgery and no smoking, or chewing tobacco (or any form of nicotine). No chewing gum, candy or mints. ( 0800) Take only the following medications with a SIP of water on the morning of surgery: ___Setraline, Tylenol if needed DO NOT STOP ANY OF YOUR OTHER PRESCRIPTION MEDICATIONS PRIOR TO SURGERY EXCEPT THE FOLLOWING Hold all vitamins and supplements for 3 days per anesthesiologist. Medications to discontinue per physician NONE Date to take last dose____NONE Please no make-up, nail maltese, hairspray, perfume, deodorant, or body powder the day of surgery.? No jewelry (including any body piercings) or valuables the day of surgery, leave them at home.? Please take a shower or bath the night before, or the morning of, surgery with an antibacterial soap.? Wear comfortable, loose fitting clothing.? Children are encouraged to wear pajamas. - Jewelry must be removed prior to entering the operating room.? Rings and piercings that are not removed may be cut off. - The hospital will not accept responsibility for valuables.? - Please leave all valuables, including medications, at home the day of surgery. If you are going home after surgery, a licensed driver guard must drive you home.? - NO public transportation without another adult if you receive anesthesia. - We recommend that an adult stay with you for 24 hours following discharge. - We also recommend that you do not drive, make important decision, drink alcoholic beverages, or take any drugs that were not prescribed by your health care provider for at least 24 hours after your discharge time. Follow any additional instructions given to you from your surgeon. Telephone instructions given to ___Patient and asked if any additional questions and then verbalized understanding. Patient advised to call surgeon office or pre surgery nurse liaison [phone] if any additional questions.
--- NOTE | 2025-05-09 07:03 | PM.IMHP ---
H&P: HPI History of Present Illness Date/Time: 05/09/25 07:03 Chief Complaint: Patient is numbness and tingling in her left hand. She has make pain that radiates down to her fingers. She is quite tender over the elbow and has failed conservative treatment today. He would like to consider cubital tunnel release. Review of Systems Musculoskeletal: Musculoskeletal: Reports arthralgias, Reports joint swelling and Reports stiffness PMFSH Surgical History Surgical History (Updated 04/27/25 @ 13:08 by Jazmyne Garcia CMA) H/O removal of cyst History of cholecystectomy History of appendectomy H/O tubal ligation History of tonsillectomy Family History Family History Mother Family history of Parkinson's disease Family history of heart disease in male family member before age 55 Father Family history of heart disease in male family member before age 55 Social History Social History (Updated 04/27/25 @ 13:09 by Jazmyne Garcia CMA) Smoking packs per day: 1 Smoking cigarettes per day: 20.0 Years smoked: 40 Smoking pack-years: 40.00 Smoking status: Current every day smoker Tobacco type: cigarettes Second hand tobacco smoke exposure: Yes Alcohol intake: current Drinks per week: 2 Alcohol use details: occasional Substance use: former Substance use type: does not use Lack of Transportation: No Lack of Food: Never True Current Housing: I Have Housing Concerned About Future Housing: No Difficulty Paying Gas/Electric Bills: No Difficulty Paying for Meds: No Currently Unemployed: No Education: Associate Degree Difficulty w/ Childcare or Family Care: No Living arrangements: with family Additional living arrangements comments: [place] Spiritual care concerns: No Meds Home Medications and Allergies Home Medications ?Medication ?Instructions ?Recorded ?Confirmed ?Type atorvastatin 40 mg tablet 40 mg PO DAILY 04/27/25 05/03/25 History cholecalciferol (vitamin D3) 125 125 mcg PO DAILY 04/27/25 05/03/25 History mcg (5,000 unit) capsule cyanocobalamin (vitamin B-12) 1,000 mcg PO DAILY 04/27/25 05/03/25 History 1,000 mcg capsule ibuprofen 200 mg capsule (Motrin 200 mg PO Q6H PRN pain 04/27/25 05/03/25 History IB) pseudoephedrine HCl 30 mg tablet 30 mg PO Q4-6H PRN nasal congestion 04/27/25 05/03/25 History (Sudafed) sertraline 100 mg tablet 100 mg PO Q24H 04/27/25 05/03/25 History Allergies Allergy/AdvReac Type Severity Reaction Status Date / Time latex Allergy Mild SKIN RASH Verified 05/03/25 13:02 Sulfa (Sulfonamide Allergy Unknown Unknown Verified 05/03/25 13:02 Antibiotics) Contrast Media Allergy Unknown SEVERE Uncoded 04/27/25 13:05 SHAKING, FEELS LIKE INSIDE ORGANS ON FIRE Exam Narrative: On exam she is tender about the left elbow. She has a positive Phalen's and cubital tunnel compression test. Neurologically she has increased 2 point discrimination the 4th 5th fingers left hand. She has radiating pain in the fingers. She has pain with manipulation and compression. Assessment and Plan Assessment and plan (1) Cubital tunnel syndrome on left: Code(s): G56.22 - Lesion of ulnar nerve, left upper limb Status: Acute Assessment and Plan: Patient has cubital tunnel left. She has failed conservative treatment like to consider surgical release. I have discussed this with her in detail including the risks, benefits, limitations, and alternatives in detail. Will proceed with cubital tunnel release. She understands that this may not relieve all of her symptoms.
--- OUTSIDE RECORDS SUMMARY | 2025-05-10 03:16 | XMS_ITS | Clinical Summary ---
Author Organization [facility] Address [address] [facility] [place] [address] Care Team Providers Care Apartment Coordinator Name Role Phone Bert Cole MD Primary Care Provider [phone] Source Comments [facility],non-owned Affiliates and Associated Physician Practices is amultiple site organization consisting of ambulatory clinics and hospital sitesin [place], [place], [place] and [place]. This disclosure is being madepursuant to the Care Everywhere program and may not contain all information available regarding this patient. Last updated 18.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 Gender Identity Not on file Sexual Orientation [...] PM CDT 04/27/2018 Narrative Resulting Agency Comment [facility] [id number] Gabby Higginbotham MD LAB - CHEMISTRY ORDERA BLES Final Result Performing Organization Address City/[facility]/ZIP Co de Phone Number [facility] [address] [place] [address] * HEPATITIS C ANTIBODY (11/25/2016 1:06 PM CDT) [facility] Hepatitis C Virus Antibody 0.1 0.0 - 0.9 s/co ratio [facility] Comment: Negative: < 0.8 Indeterminate: 0.8 - 0.9 Positive: > 0.9 The CDC recommends that a positive HCV antibody result be followed up with a HCV Nucleic Acid Amplification test ([id number]). Blood specimen (specimen) BLOOD SPECIMEN / Unknown 11/25/2016 1:06 PM CDT 11/25/2016 Narrative [facility]) - 11/26/2016 7:13 AM CDT Performed at: [address] [place] [id number] Industrial Hygienist: Joe Hopper PhD, Phone: [phone] Gabby Higginbotham MD LAB - CHEMISTRY ORDERA BLES Final Result Performing Organization Address City/[facility]/ZIP Co de Phone Number [facility] ([facility]) [address] [place] [address], [facility] from Last 3 Months or Most Recently Relevant to Health Maintenance Insurance [employer] HE[employer] CARE Care Teams Apartment Coordinator Relationship Specialty Start Date End Date Bert Cole MD PCP - General 07/12/18
--- OUTSIDE RECORDS SUMMARY | 2025-05-10 03:17 | XMS_ITS | Data Portability ---
Author Organization [place] - [facility] [employer], Main Office Address [address] [place] [address] Care Team Providers Care Check Scaler Name Role Phone EVERTON ALBERT Primary Care Provider EVERTON ALBERT Referring Provider [phone] Assessment Encounter Date Assessment Date Assessment LastModified by Organization Details LastModified Time 02/04/2023 02/04/2023 Continue current therapy blood work has been ordered follow-up in [address] [place] [address] Not available 02/05/2023 16:18:00 Plan of Treatment Reminders Order Date Submit Date Provider Last Modified By Organization Details Last Modified Time Details Appointments None recorded . Lab CBC w/ auto diff 023 02/05/20 [facility] (Lab), [address] [place], [address], 3 10:13:04 CMP, serum or plasma 023 02/05/20 [facility] (Lab), [address] [place], [address], 3 10:13:04 lipid panel, serum 023 02/05/20 [facility] (Lab), [address] [place], [address], 3 10:13:05 Referral None recorded . Procedures None recorded . Surgeries None recorded . Imaging None recorded . Medication Orders None recorded . Patient TargetsNo targets recorded. Patient InstructionsNo instructions recorded. Reason for Referral None Reported. Results Created Date Observation Date Name Description Value Unit Range Abnormal Flag Note LastModifiedBy Organization Detail LastModifiedTime 03/22/2003/20/2023 MAMMO , scree maria antonia, digit al, bilat eral No observ ation record ed. [email or web address] [facility] [address], [place], [address], 08/01/2023 21:29:13 Result Notes None recorded. Problems Name Problem SNOMED Code Status Onset Date Resolution Date Notes Provider Name and Address Organization Details Recorded Time Closed fracture of distal end of radius 59461648 Active Not Available [facility] 3 04:52:19 Cervical spondylosis without myelopathy 679042793 Active Not Available [facility] 3 04:52:19 Osteopenia 329902924 Active Not Available [facility] 3 04:52:19 Vitamin D deficiency 51227952 Active Not Available [facility] 3 04:52:19 Sinusitis 58962515 Active Not Available [facility] 3 04:52:19 Osteoarthriti s 571331004 Active Not Available [facility] 3 04:52:19 Umbilical hernia 150536856 Active Not Available [facility] 3 04:52:19 Pain of joint 16960431 Active Not Available [facility] 3 04:52:20 Fracture of forearm 86610104 Active Not Available [facility] 3 04:52:20 Rhinitis 81827670 Active Not Available [facility] 3 04:52:20 Brachial neuritis 42750855 Active Not Available [facility] 3 04:52:20 Spinal stenosis in cervical region 26472504 Active Not Available [facility] 3 04:52:20 Vitamin deficiency 19492896 Active Not Available [facility] 3 04:52:20 Skin lesion 26990684 Active Not Available [facility] 3 04:52:20 Dyslipidemia 815571879 Active 2019 Not Available [facility] 3 04:52:19 Migraine 65994724 Active 2020 Not Available [facility] 3 04:52:19 Hyperlipidemi a 80738235 Active 2021 Not Available [facility] 3 04:52:19 Dysfunction of eustachian tube 86721691 Active 2021 Not Available [facility] 3 04:52:20 Problem Notes None recorded. Procedures Surgical History Date Name Laterality Status Provider Name and Address Organization Details Recorded Time Excisions - Specify completed Not Available [facility] 09/24/2022 04:42:09 Hernia Repair completed Not Available [facility] 09/24/2022 04:42:09 completed Not Available [facility] 0 09/24/2022 04:42:09 Tubal Ligation completed Not Available [facility] 09/24/2022 04:42:09 Appendectomy completed Not Available [facility] 09/24/2022 04:42:09 Cholecystectomy completed Not Available [facility] 09/24/2022 04:42:09 Bone graft reji per tooth completed Sammi Person RN [place] [employer] [facility] 02/04/2023 14:54:07 Imaging Results None recorded. Procedure Notes None recorded. Medical Equipment None Reported. Allergies Allergen ID Allergen Name Allergen Category Reaction Reaction Severity Criticality Documentation Date Start Date Code Code System Note Provider Name and Address Organization Details Recorded Time 9102 Substance with sulfonami de structure and antibacte rial mechanism of action (substanc e) medicatio n Not available Not available Not available 09/24/2022 65542 8003 SNOMED Not Available [facility] 3 05:07:49 9104 Iodinated contrast media (substanc e) medicatio n Not available Not available Not available 09/24/2022 48829 2004 SNOMED Not Available [facility] 3 05:07:49 Medications Name Sig Start Date Stop Date Status Note LastModified by Organization Details LastModified Time cyclobenz aprine 10 mg tablet 04/21 completed Not Available Not Available Not Available amoxicill in 500 mg capsule TAKE 1 CAPSULE BY MOUTH EVERY 8 HOURS FOR 5 DAYS active Not Available Not Available No t Available atorvasta tin 40 mg tablet TAKE 1 TABLET BY MOUTH ONCE DAILY active Not Available Not Available No t Available prednison e 10 mg tablet Take by oral route. 04/21 completed Not Available Not Available Not Available atorvasta tin 20 mg tablet TAKE 1 TABLET BY MOUTH ONCE DAILY 07/17 completed Not Available Not Available Not Available azithromy viral 250 mg tablet TAKE 2 TABLETS BY MOUTH ON DAY 1, AND THEN TAKE 1 TABLET BY MOUTH ONCE A DAY ON DAY 2 THROUGH DAY 5 02/04 completed Not Available Not Available Not Available ibuprofen 800 mg tablet Take 1 tablet 3 times a day by oral route as needed. 04/21 completed Not Available Not Available Not Available hydrocodo ne 5 mg-acetam inophen 325 mg tablet active Not Available Not Available Not Available meloxicam 15 mg tablet 12/04 completed Not Available Not Available Not Available sertralin e 100 mg tablet TAKE 1 & 1/2 (ONE & ONE-HALF ) TABLETS BY MOUTH ONCE DAILY active Not Available Not Available No t Available penicilli n V potassium 500 mg tablet 07/17 completed Not Available Not Available Not Available acetamino phen 300 mg-codein e 15 mg tablet TAKE 1 TABLET BY MOUTH EVERY 6 HOURS NEEDED active Not Available Not Available No t Available hydrocodo ne 10 mg-acetam inophen 325 mg tablet 04/21 completed Not Available Not Available Not Available ketorolac 10 mg tablet active Not Available Not Available Not Available methocarb leeroy 750 mg tablet 04/21 completed Not Available Not Available Not Available hydrocodo ne 7.5 mg-acetam inophen 325 mg tablet 04/21 completed Not Available Not Available Not Available gabapenti n 300 mg capsule Take 1 capsule every day by oral route at bedtime. active Not Available Not Available No t Available diclofena c sodium 75 mg tablet,de layed release 04/21 completed Not Available Not Available Not Available monteluka st 10 mg tablet Take 1 tablet every day by oral route. 04/21 completed Not Available Not Available Not Available hydroxyzi ne HCl 25 mg tablet TAKE 1 TO 2 TABLETS BY MOUTH 4 TIMES DAILY NEEDED active Not Available Not Available No t Available ergocalci ferol (vitamin D2) 1,250 mcg (50,000 unit) capsule Take 1 capsule every week by oral route. 07/17 completed Not Available Not Available Not Available Transderm -Scop 1 mg over 3 days transderm al patch Apply by transder mal route every 3 days, apply 12 hours before getting on boat and take off 12 hours after boat departur e active Not Available Not Available No t Available methylpre dnisolone 4 mg tablets in a dose pack Take 1 dose pk by oral route as directed . 02/04 completed Not Available Not Available Not Available fluticaso ne propionat e 50 mcg/actua tion nasal spray,[facility] [employer] [place] 1 spray every day by intranas al route. active Not Available Not Available No t Available sertralin e 50 mg tablet TAKE 1 AND 1/2 TABLETS BY MOUTH ONCE DAILY 04/21 completed changed to 100mg Not Available Not Available Not Available diazepam 5 mg tablet TAKE ONE (1) TABLET ONE (1) HOUR PRIOR TO DENTAL APPOINTM ENT. BRING THE OTHER TABLET WITH YOU TO THE APPOINTM ENT. YOU MUST HAVE A GRADE FOREMAN. 02/04 completed Not Available Not Available Not Available rizatript an 5 mg tablet Take 1 dose pk by oral route as needed. active Not Available Not Available No t Available hydroxyzi ne pamoate 25 mg capsule TAKE 1 TO 2 CAPSULES BY MOUTH 4 TIMES DAILY NEEDED FOR ANXIETY active Not Available Not Available No t Available chlorhexi dine gluconate 0.12 % mouthwash PLACE 15 ML IN THE MOUTH 2 TIMES PER DAY (AFTER MEALS) SWISH IN MOUTH FOR 30 SECONDS THEN SPIT OUT. 02/04 completed Not Available Not Available Not Available hydrocodo ne 5 mg-acetam inophen 300 mg tablet 04/21 completed Not Available Not Available Not Available Fluvirin [id number] 45 mcg (15 mcg x 3)/0.5 mL intramusc ular suspensio n active Not Available Not Available Not Available Fluzone Quad 9234-4776 60 mcg (15 mcg x 4)/0.5 mL IM suspensio n active Not Available Not Available Not Available Flublok Quad 2284-3780 (PF) 180 mcg (45 mcg x 4)/0.5 mL IM syringe IMMUNIZA TION 04/21 completed Not Available Not Available Not Available Fluzone Quad (PF) 60 mcg (15 mcg x 4)/0.5 mL IM syringe PHARMACI ST ADMINIST ERED IMMUNIZA TION ADMINIST ERED AT TIME OF DISPENSI NG active Not Available Not Available No t Available Vitals Date Recorded Body mass index (BMI) Body height Heart rate Body temperature Body weight Systolic And Diastolic Provider Name and Address Organization Details Last Updated DateTime 1 35 kg/m2 167.64 cm 72 /min 97.3 [degF] 95212.5 4 g 124/78 mm[Hg] Not Available [facility] 3 04:47:08 Date Recorded Body mass index (BMI) Body height Heart rate Body temperature Body weight Systolic And Diastolic Provider Name and Address Organization Details Last Updated DateTime 2 34.1 kg/m2 167.64 cm 66 /min 98.5 [degF] 00970.9 9 g 132/80 mm[Hg] Not Available [facility] 3 04:47:08 Date Recorded Body height Body mass index (BMI) Body weight Body temperature Heart rate Systolic And Diastolic Provider Name and Address Organization Details Last Updated DateTime 3 167.64 cm 29.7 kg/m2 05210 g 98 [degF] 85 /min 108/70 mm[Hg] Sammi bloom RN [place] [facility] 3 14:56:41 Date Recorded Body mass index (BMI) Body height Heart rate Body temperature Body weight Systolic And Diastolic Provider Name and Address Organization Details Last Updated DateTime 1 33.2 kg/m2 167.64 cm 76 /min 96.3 [degF] 05133.0 3 g 140/80 mm[Hg] Not Available [facility] 3 04:47:08 Date Recorded Body mass index (BMI) Body height Heart rate Body temperature Body weight Systolic And Diastolic Provider Name and Address Organization Details Last Updated DateTime 2 31.3 kg/m2 167.64 cm 80 /min 97.3 [degF] 34018.9 2 g 122/88 mm[Hg] Not Available [facility] 3 04:47:09 Social History Question Answer Notes LastModified by Organizat ion Details LastModified Time Tobacco Smoking Status Current Every Day Smoker Not Available [facility] 09/24/2022 04:20:33 Do You Have An Advance Directive? No [id number] Information not available 09/24/2022 What Is Your Level Of Caffeine Consumption? Heavy [id number].[id number] Information not available 09/24/2022 How Much Tobacco Do You Chew? None [id number] Information not available 09/24/2022 In The 14 Days Before Symptom Onset, Have You Had Close Contact With A Laboratory-confi rmed COVID-19 While That Case Was Ill? No [id number] Information not available 09/24/2022 In The 14 Days Before Symptom Onset, Have You Had Close Contact With A Person Who Is Under Investigation For COVID-19 While That Person Was Ill? No [id number] Information not available 09/24/2022 What Type Of Diet Are You Following? REGULAR [id number].[id number] Information not available 09/24/2022 Which Illicit Or Recreational Drugs Have You Used? MARIJUANA Information not available 02/04/2023 What Is The Highest Grade Or Level Of School You Have Completed Or The Highest Degree You Have Received? [id number] Information not available 02/04/2023 Have There Been Any Changes To Your Family Or Social Situation? No Information not available 02/04/2023 Are There Any Guns Present In Your Home? Yes [id number] Information not available 09/24/2022 Do You Use Insect Repellent Routinely? Yes Information not available 02/04/2023 Where Do You Live? SingleLevelHouse Information not available 02/04/2023 Do You Have A Medical Power Of Mother Repairer? No Information not available 02/04/2023 What Was The Date Of Your Most Recent Tobacco Screening? 02/04/2023 Information not available 02/04/2023 Do You Have Any Pets? Yes Information not available 02/04/2023 What Is Your Relationship Status? Information not available 02/04/2023 Do You Have Smoke And Carbon Monoxide Detectors In Your Home? Yes Information not available 02/04/2023 At What Age Did You Start Smoking Tobacco? 18 [id number].[id number] Information not available 09/24/2022 Are You Passively Exposed To Smoke? No Information not available 02/04/2023 Are There Any Smokers In Your House? No Information not available 02/04/2023 How Much Tobacco Do You Smoke? 0.5 PPD Information not available 02/04/2023 Do You Use Sunscreen Routinely? Yes [id number].37912 [id number] Information not available 09/24/2022 Have You Recently Traveled Abroad? No [email or web address] Information not available 02/04/2023 Do You Have Any Dietary Restrictions? No Information not available 02/04/2023 Sex: Unknown Functional Status Question Answer Note LastModified by Organizat ion Details LastModified Time Do you use any illicit or recreational drugs? Yes Information not available 02/04/2023 What is your level of alcohol consumption? Occasional [id number] Information not available 09/24/2022 Do you or have you ever used smokeless tobacco? Never used smokeless tobacco MIGRATION.[id number] Information not available 09/24/2022 Are you currently employed? No Information not available 02/04/2023 What is your occupation? retired [id number] Information not available 09/24/2022 Do you or have you ever used e-cigarettes or vape? Never used electronic cigarettes MIGRATION.[id number] Information not available 09/24/2022 What is your exercise level? Occasional [id number] Information not available 09/24/2022 Mental Status None recorded. Family History Relationship Description Onset Age of this Age Resolved Age Notes LastModified by Organization Details LastModified Time Mother Parkinson's disease [id number] Not available 09/24/2022 04:42:13 Mother Heart disease [id number] Not available 09/24/2022 04:42:13 Father Heart disease [id number].619 [id number] Not available 09/24/2022 04:42:13 Unspecified Relation Malignant neoplasm of thyroid gland doug busch [id number] Not available 09/24/2022 04:42:13 Medical History Condition Response NERVE DISEASE N BLINDNESS N RHEUMATIC FEVER N KIDNEY STONES N BLADDER PROBLEMS N MRSA N OTHER # 1 Y POLIO N LUNG DISEASE/DISORDER N RADIATION / CHEMOTHERAPY N COPD N Other # 2 N BLOOD DISEASES N EAR OR HEARING PROBLEMS N MUMPS N BOWEL PROBLEMS N DEPRESSION (INCLUDING POST ) N STROKE/TIA N ULCERS N BENIGN PROSTATIC HYPERPLASIA N MEASLES N MYOCARDIAL INFARCTION N OBESITY N GERD/NAUSEA N ANEURYSM N URINARY/BLADDER/KIDNEY PROBLEMS N CORONARY ARTERY DISEASE (CAD) N ADDICTION CONCERNS N Impotence N ENDOMETRIOSIS N USE OF BLOOD THINNERS N SKIN PROBLEMS N GASTROINTESTINAL DISORDER N PERIPHERAL VASCULAR DISEASE N MUSCLE,JOINT OR BONE PROBLEMS N GASTROINTESTINAL BLEEDING N BLOOD CLOTS N ASTHMA N CATARACTS N ERECTILE DYSFUNCTION N VARICOSITIES N GI PROBLEMS N Low Testosterone N INFERTILITY N AIDS/HIV N CHEMOTHERAPY / RADIATION N LIVER DISEASE N MALE HYPOGONADISM N HYPERTENSION N Deficiency Y TOURETTE'S N ANXIETY DISORDER N BLOOD TRANSFUSION N ANEMIA/BLOOD DISORDER N CHRONIC EAR INFECTIONS N BRONCHITIS N TUBERCULOSIS N GLAUCOMA N FOOT PROBLEM N DIVERTICULITIS N SLEEP APNEA N CHICKENPOX N INFECTIOUS DISEASE N PROSTATE N HEART ARRHYTHMIA N INSOMNIA N HIGH CHOLESTEROL / HYPERLIPIDEMIA Y EYE PROBLEMS N HYPERTHYROIDISM N EDEMA N CHRONIC PAIN SYNDROME N HYPOTHYROIDISM N CONSTIPATION N CAROTID BLOCKAGE N BACK / NECK PROBLEMS Y HAVE YOU BEEN HOSPITALIZED OR SEEN IN [facility] IN THE PAST YEAR ? N ATHEROSCLEROSIS N BREAST PROBLEMS N DIALYSIS N ECZEMA N OSTEOPOROSIS N ARTHRITIS Y APPENDICITIS N DIABETES, TYPE N BAD TEETH N ENT N HEARTBURN / REFLUX N AUTISM SPECTRUM DISORDER (ASD) N HEPATITIS / LIVER DISEASE N GOUT N SLEEP DISORDER N ALZHEIMER'S DISEASE N Brain Problems N DEMENTIA N HERPES N SEIZURES/EPILEPSY N HEADACHES/MIGRAINES Y VASCULAR DISEASE N PACEMAKER N Blood Disorder N DIZZINESS N HEART DISEASE/HEART PROBLEMS N KIDNEY DISEASE N MULTIPLE SCLEROSIS N CANCER: SPECIFY N CARDIAC ARRHYTHMIA N ATRIAL FIBRILLATION N Gall Stones N PULMONARY EMBOLISM N AUTOIMMUNE DISEASE N Gynecological HistoryNo gynecological history recorded. Obstetrics History GPAL:G 0 P 0 0 0 0 Immunizations Vaccine Type Date Status Note Provider Nam e and Address Organization Details Recorded Time COVID-19, mRNA, LNP-S, PF, 30 mcg/0.3 mL dose 1 completed Not Available [facility] 09/24/2022 05:07:24 COVID-19, mRNA, LNP-S, PF, 30 mcg/0.3 mL dose 1 completed Not Available [facility] 09/24/2022 05:07:24 Influenza, split virus, quadrivalent, preservative 9 completed Not Available [facility] 09/24/2022 05:07:25 Influenza, split virus, quadrivalent, preservative 8 completed Not Available [facility] 09/24/2022 05:07:25 Influenza, split virus, trivalent, preservative 2 completed Not Available [facility] 09/24/2022 05:07:25 COVID-19, mRNA, LNP-S, PF, 30 mcg/0.3 mL dose 2 completed Not Available [facility] 09/24/2022 05:07:25 Influenza, high-dose, trivalent, PF 5 completed Not Available [facility] 09/24/2022 05:07:25 Influenza, high-dose, trivalent, PF 3 completed Not Available [facility] 09/24/2022 05:07:25 Influenza, split virus, quadrivalent, PF 1 completed Not Available [facility] 09/24/2022 05:07:26 Influenza, split virus, quadrivalent, PF 0 completed Not Available [facility] 09/24/2022 05:07:26 Past Encounters Encounter ID Performer Location Encounter Start Date Encounter Closed Date Diagnosis/Indication Diagnosis SNOMED-CT Code Diagnosis ICD10 Code Diagnosis IMO Codes Diagnosis Note [id number] Everton Albert MD [facility] Internal Med [facility] [address] [address] 12/19/2020 00:00:00 12/24/2020 12:15:17 [id number] Everton Albert MD [facility] Internal Med [facility] [address] [facility] [address] [address] 06/12/2021 00:00:00 06/12/2021 21:51:15 [id number] Everton Albert MD [facility] Internal Med [facility] [address] [facility] [address] [address] 01/06/2022 00:00:00 02/01/2022 16:30:54 [id number] Everton Albert MD [facility] Internal Med [facility] [address] [address] 07/17/2022 00:00:00 07/17/2022 21:53:25 [id number] Everton Albert MD [facility] Internal Med [facility] [address] [address] 02/04/2023 14:45:47 02/04/2023 15:14:05 Hyperlipidemia 52746736 E78.5 Dyslipidemia 152292901 E 78.5 Migraine 79096097 G43.90 9 Health Concerns Section Related Observation LastModified by Organization Detai ls LastModified Time None Recorded Concern Status LastModified by Organization Details LastModified Time None Recorded Advance Directives Directive N: Payers Insurance Date Sequence Insurance Name Policy Number Policy Silverio Covered Member ID Silverio Member ID Guarantor Name 07/27/2023 1 [facility] [id number] Romina Higuera [id number] Romina Higuera Notes Date Note Type Note Provider Name and Address Organization Details Recorded Time 02/04/2023 text/html hyperlipidemia does try to follow his to atorvastatin has been doing with Exon bloody nose. Anxiety hydroxyzine doing migraines stable current meds anxiety doing fine on sertraline no side effects Everton Albert MD [address] [place] [address], [facility] [address], [place], [address], [place] [facility] [employer] 02/05/2023 16:18:26 OBGyn Episode No OBEpisode recorded.
--- OUTSIDE RECORDS SUMMARY | 2025-05-10 03:17 | XMS_ITS | Encounter Summary ---
Author Organization [facility] Address [address] [place] [address] Care Team Providers Care Silica Mixer Operator Name Role Phone Bert Cole MD Primary Care Provider [phone] Reason for Visit * Reason Onset Date Comments MEDICATION REFILL 12/02/2018 Encounter Details Date Type Department Care Team (Late st Contact Info) Description 12/02/2018 Refill [facility] [address] [place] [address] Gabby Higginbotham MD [facility] [place] [address] MEDICATION REFILL Social History Tobacco Use Types Packs/Day Years Used Date Smoking Tobacco: Never Smokeless Tobacco: Never Alcohol Use Standard Drinks/Week Comments Yes 0 (1 standard drink = 0.6 oz pur e alcohol) ocass. Comments No Sex and Gender Information Value Date Recorded Sex Assigned at Not on file Legal Sex Female 12:56 PM [employer] Gender Identity Not on file Sexual Orientation [...] monitoring documented in this encounter Care Teams Silica Mixer Operator Relationship Specialty Start Date End Date Bert Cole MD PCP - General 07/12/18 documented as of this encounter
--- NOTE | 2025-05-23 14:30 | PC.NURSE ---
[facility] has started construction of its new state of the art ER which will open Spring 2026. With this, we anticipate parking may be a challenge for some our surgical patients and families. Parking spaces are limited but are available for all Surgical, obstetrics, and ER patients sharing this lot. If you arrive and find you are having a hard time finding a parking space, please note that we understand the challenges, please drive around the hospital and park near Hospital Entrance 1. When you enter this entrance, you can ask a volunteer to direct or take you back to the surgical waiting area to check in. We appreciate everyone?s understanding of these expected challenges while we build for your future. Report to the Outpatient Waiting Room, entrance under the green pavilion located off [address], at time _0800_ on date _06/05/25. Planned Procedure Time: 1000.? Time changes happen often and if your time is changed the preop area will call you the afternoon before. - You and your visitor will be asked to self-screen and do not enter if you have any COVID symptoms. Please call surgeon if you need to reschedule. - A mask is optional within the hospital at this time. Patients may have clear liquids (water, carbonated beverages, clear teas, apple juice) until 3 hours prior to surgery with a maximum of 20 ounces. - No food from midnight until time of surgery and no smoking, or chewing tobacco (or any form of nicotine). No chewing gum, candy or mints. Take only the following medications with a SIP of water on the morning of surgery: ___SERTRALINE, TYLENOL IF NEEDED DO NOT STOP ANY OF YOUR OTHER PRESCRIPTION MEDICATIONS PRIOR TO SURGERY EXCEPT THE FOLLOWING Hold all vitamins and supplements for 3 days per anesthesiologist. Medications to discontinue per physician NONE Date to take last dose Please no make-up, nail portuguese, hairspray, perfume, deodorant, or body powder the day of surgery.? No jewelry (including any body piercings) or valuables the day of surgery, leave them at home.? Please take a shower or bath the night before, or the morning of, surgery with an antibacterial soap.? Wear comfortable, loose fitting clothing.? Children are encouraged to wear pajamas. - Jewelry must be removed prior to entering the operating room.? Rings and piercings that are not removed may be cut off. - The hospital will not accept responsibility for valuables.? - Please leave all valuables, including medications, at home the day of surgery. If you are going home after surgery, a licensed trash collector truck driver must drive you home.? - NO public transportation without another adult if you receive anesthesia. - We recommend that an adult stay with you for 24 hours following discharge. - We also recommend that you do not drive, make important decision, drink alcoholic beverages, or take any drugs that were not prescribed by your health care provider for at least 24 hours after your discharge time. For Pediatric surgeries, we recommend two adults accompany the child home. Follow any additional instructions given to you from your surgeon. Telephone instructions given to __PATIENT__and asked if any additional questions and then verbalized understanding. Patient advised to call surgeon office or pre surgery nurse liaison [phone] if any additional questions.
--- NOTE | 2025-05-23 14:33 | PC.NURSE ---
PT DENIES ANY CHANGE IN HEALTH OR MEDICATION SINCE INTERVIEW. NEW INSTRUCTIONS GIVEN. PT DENIES ANY QUESTIONS.
--- NOTE | 2025-06-01 07:38 | PM.IMHP ---
H&P: HPI History of Present Illness Date/Time: 06/01/25 07:38 Chief Complaint: Patient has numbness and tingling left hand. Particularly ulnar nerve distribution. She failed conservative treatment like to consider surgical release. She has an EMG that shows cubital tunnel syndrome. Review of Systems Musculoskeletal: Musculoskeletal: Reports arthralgias, Reports joint swelling and Reports stiffness [facility] Surgical History Surgical History (Updated 04/27/25 @ 13:08 by Jazmyne Garcia CMA) H/O removal of cyst History of cholecystectomy History of appendectomy H/O tubal ligation History of tonsillectomy Family History Family History Mother Family history of Parkinson's disease Family history of heart disease in male family member before age 55 Father Family history of heart disease in male family member before age 55 Social History Social History (Updated 04/27/25 @ 13:09 by Jazmyne Garcia CMA) Smoking packs per day: 1 Smoking cigarettes per day: 20.0 Years smoked: 40 Smoking pack-years: 40.00 Smoking status: Current every day smoker Tobacco type: cigarettes Second hand tobacco smoke exposure: Yes Alcohol intake: current Drinks per week: 2 Alcohol use details: occasional Substance use: former Substance use type: does not use Lack of Transportation: No Lack of Food: Never True Current Housing: I Have Housing Concerned About Future Housing: No Difficulty Paying Gas/Electric Bills: No Difficulty Paying for Meds: No Currently Unemployed: No Education: Associate Degree Difficulty w/ Childcare or Family Care: No Living arrangements: with family Additional living arrangements comments: [place] Spiritual care concerns: No Meds Home Medications and Allergies Home Medications ?Medication ?Instructions ?Recorded ?Confirmed ?Type atorvastatin 40 mg tablet 40 mg PO DAILY 04/27/25 05/03/25 History cholecalciferol (vitamin D3) 125 125 mcg PO DAILY 04/27/25 05/03/25 History mcg (5,000 unit) capsule cyanocobalamin (vitamin B-12) 1,000 mcg PO DAILY 04/27/25 05/03/25 History 1,000 mcg capsule ibuprofen 200 mg capsule (Motrin 200 mg PO Q6H PRN pain 04/27/25 05/03/25 History IB) pseudoephedrine HCl 30 mg tablet 30 mg PO Q4-6H PRN nasal congestion 04/27/25 05/03/25 History (Sudafed) sertraline 100 mg tablet 100 mg PO Q24H 04/27/25 05/03/25 History Allergies Allergy/AdvReac Type Severity Reaction Status Date / Time latex Allergy Mild SKIN RASH Verified 05/03/25 13:02 Sulfa (Sulfonamide Allergy Unknown Unknown Verified 05/03/25 13:02 Antibiotics) Contrast Media Allergy Unknown SEVERE Uncoded 04/27/25 13:05 SHAKING, FEELS LIKE INSIDE ORGANS ON FIRE Exam Narrative: On exam she is tender to palpation over the left medial elbow. She has a positive Phalen's and cubital tunnel compression test. She has increased 2 point discrimination 4th and 5th fingers. She has pain with manipulation. Eyes: General: appearance normal, both eyes and all related structures Neck: Neck: supple Resp: Effort & Inspection: normal respiratory effort Cardio: Rate: regular rate Rhythm: regular rhythm Assessment and Plan Assessment and plan (1) Cubital tunnel syndrome on left: Code(s): G56.22 - Lesion of ulnar nerve, left upper limb Status: Acute Assessment and Plan: Patient has cubital tunnel left. She has failed conservative treatment like to consider surgical debridement. I have discussed the risks, benefits, limitations, and alternatives the patient in detail. She understands and agrees. Like to proceed. Will proceed release cubital tunnel proceed as indicated.
[2025-06-05] VITALS (8 sets, daily range): BP systolic 162–173; BP diastolic 77–99; PULSE 54–88; RESP 12–16; TEMP 36.4–36.9; O2SAT 97–100
--- OUTSIDE RECORDS SUMMARY | 2025-06-05 00:26 | XMS_ITS | Clinical Summary ---
Author Organization [facility] Address [address] [place] [address] Care Team Providers Care Director Television Name Role Phone Bert Cole MD Primary Care Provider [phone] Source Comments [facility],non-owned Affiliates and Associated Physician Practices is amultiple site organization consisting of ambulatory clinics and hospital sitesin [place], [place], [place] and [place]. This disclosure is being madepursuant to the Care Everywhere program and may not contain all information available regarding this patient. 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 Gender Identity Not on file Sexual Orientation [...] PM CDT 04/27/2018 Narrative Resulting Agency Comment [facility] [id number] Gabby Higginbotham MD LAB - CHEMISTRY ORDERA BLES Final Result Performing Organization Address City/[facility]/ZIP Co de Phone Number [facility] [address] [place] [address] * HEPATITIS C ANTIBODY (11/25/2016 1:06 PM CDT) [facility] Hepatitis C Virus Antibody 0.1 0.0 - 0.9 s/co ratio [facility] ([facility]) Comment: Negative: < 0.8 Indeterminate: 0.8 - 0.9 Positive: > 0.9 The CDC recommends that a positive HCV antibody result be followed up with a HCV Nucleic Acid Amplification test (211300). Blood specimen (specimen) BLOOD SPECIMEN / Unknown 11/25/2016 1:06 PM CDT 11/25/2016 Narrative [facility] ([facility]) - 11/26/2016 7:13 AM CDT Performed at: [address] [place] [id number] Electronics Manufacturer: Joe Hopper PhD, Phone: [phone] Gabby Higginbotham MD LAB - CHEMISTRY ORDERA BLES Final Result Performing Organization Address City/[facility]/ZIP Co de Phone Number [facility] ([facility]) [address] [place] [address], [facility] from Last 3 Months or Most Recently Relevant to Health Maintenance Insurance [employer] Care Teams Director Television Relationship Specialty Start Date End Date Bert Cole MD PCP - General 07/12/18
--- OUTSIDE RECORDS SUMMARY | 2025-06-05 00:27 | XMS_ITS | Encounter Summary ---
Author Organization [facility] Address [address] [place] [address] Care Team Providers Care Orthopedic Coder Name Role Phone Bert Cole MD Primary Care Provider [phone] Reason for Visit * Reason Onset Date Comments MEDICATION REFILL 12/02/2018 Encounter Details Date Type Department Care Team (Late st Contact Info) Description 12/02/2018 Refill [facility] [address] [place] [address] Gabby Higginbotham MD [address] [id number] MEDICATION REFILL Social History Tobacco Use Types Packs/Day Years Used Date Smoking Tobacco: Never Smokeless Tobacco: Never Alcohol Use Standard Drinks/Week Comments Yes 0 (1 standard drink = 0.6 oz pur e alcohol) ocass. 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
--- OUTSIDE RECORDS SUMMARY | 2025-06-05 00:27 | XMS_ITS | Data Portability ---
Author Organization [facility] ISARandi Sánchez Address [address] [place] [address] Care Team Providers Care Psychological Tests Sales Agent Name Role Phone KAVITHA ALBERT Primary Care [...] 2022 follow-up with me in 4 months [email or web address] Not available 11/30/2023 22:45:01 07/01/2024 07/01/2024 acetaminophen fo r osteoarthritis healthy lifestyle care instructions blood work for biochemical management of disease processes and medications [email or web address] Not available 07/02/2024 12:05:09 01/09/2025 01/09/2025 Medrol Dosepak nerve conduction studies complete echo for her systolic murmur CBC CMP lipid see me in 8 weeks continue with sertraline and atorvastatin as well [email or web address] Not available 01/09/2025 23:14:02 03/06/2025 03/06/2025 Physical therapy for her cervical radiculopathy she will follow up in 2 months still needs to get her echo for her murmur [email or web address] Not available 03/12/2025 17:47:46 05/24/2025 05/24/2025 EKG was done at [facility] I do not have the tracings however the report is ectopic atrial rhythm consider anterior infarct age undetermined borderline T-wave abnormality inferior leaves no EKG to compare with. She will undergo a nuclear stress test we will obtain blood work as well and chest x-ray she will follow up with me in 4 months if stress test and blood work and chest x-ray are fine then she can have her surgery [email or web address] Not available 06/03/2025 16:43:33 Plan of Treatment Reminders Order Date Submit Date Provider Last Modified By Organization Details Last Modified Time Details Appointments ANY 15 2025 01:15P Nichole Albert MD Not available Not available Not available Lab CMP, serum or plasma 2024 025 [facility] (Centralized Electronic Ordering - All Locations), Patient Can Go To The Location Of Their Choice, [facility] 05/25/2025 08:34:00 lipid panel, serum 2024 025 [facility] (Centralized Electronic Ordering - All Locations), Patient Can Go To The Location Of Their Choice, [id number] 05/25/2025 08:33:59 CBC w/ auto diff 2024 025 [facility] (Centralized Electronic Ordering - All Locations), Patient Can Go To The Location Of Their Choice, [id number] 05/25/2025 08:34:00 CBC w/ auto diff 2024 025 [facility], [address] [facility], [address], [place], [address], 03/07/2025 07:07:15 CMP, serum or plasma 2024 025 [facility], [address] [facility], [facility] [address], [place], [address], 03/07/2025 07:07:15 lipid panel, serum 2024 025 [facility], [address], [address], [place], [address], 03/07/2025 07:07:14 CBC w/ auto diff 2023 024 [facility], [address], [address], [place], [address], 07/02/2024 09:13:54 lipid panel, serum 2023 024 [facility], [address] [facility], [facility] [address], [place], [address], 07/02/2024 09:13:52 CMP, serum or plasma 2023 024 [place] [facility], [address] [facility], [facility] [address], [place], [address], 07/02/2024 09:13:53 noninvasi ve colorecta l cancer DNA + occult blood screening , QL, stool 2023 024 [place] [facility], [address], [address], [place], [address], 12/23/2023 01:26:02 CBC w/ auto diff 2023 024 [facility], [facility] [facility], [address], [place], [address], 11/26/2023 08:29:19 lipid panel, serum 2023 024 [facility], [address] [place] [address], [address], [place], [address], 11/26/2023 08:29:17 CMP, serum or plasma 2023 024 [facility], [address] [place] [address], [address], [place], [address], 11/26/2023 08:29:18 Referral physical therapist referral [address] [facility], [address] [facility], [facility], [place], [address], 04/19/2025 11:05:17 Procedures None recorded. Surgeries None recorded. Imaging pharmacol ogic nuclear stress test 2024 025 [facility] ([facility]iology [facility]), [address], [place], [address], 05/31/2025 15:17:15 XR, chest 2024 025 [email or web address] [facility] (Imaging), [address] [place] [address] [address], [place], [address], 05/24/2025 13:23:40 US, echocardi ogram [address] [facility], [address], [address], [place], [address], 03/06/2025 14:24:48 nerve conductio n study - NCS B/L arms 2024 025 [facility] (Cardiology [facility]), [address] [place] [address] [address], [place], [address], 03/28/2025 10:58:36 Medication Orders Medrol ([place]) 4 mg tablets in a dose pack 2024 025 [facility], [address] [place] [address], [place], [address], 03/06/2025 14:02:06 Patient TargetsNo targets recorded. Patient Instructions Encounter Date Encounter Id Patient Instructions Last Modified By Organization Details Last Modified Time 07/01/2024 [id number] A healthy lifestyle: care instructions [email or web address] Not available 07/01/2024 16:47:28 01/09/2025 [id number] A healthy lifestyle: care instructions Not available 01/09/2025 15:13:49 03/06/2025 [id number] A healthy lifestyle: care instructions [email or web address] Not available 03/06/2025 14:48:48 Reason for Referral Physical Therapist Referral for Cervical radiculopathy Referring Physician: Kavitha Albert, Internal Medicine, Encounter Date: 03/06/2025 Results Created Date Observation Date Name Description Value Unit Range Abnormal Flag Note LastModifiedBy Organization Detail LastModifiedTime 11/25/19 24 11/26/2023 LIPID PANEL cholesterol, total 186 mg/dL 100-19 9 Not Available [facility] ([facility]) [address] [facility] [place], [address], 11/26/2023 08:29:17 11/25/19 24 11/26/2023 LIPID PANEL triglyceride s 185 mg/dL 0-149 above high normal Not Available [facility] ([facility]) [address] [facility], [address], 11/26/2023 08:29:17 11/25/19 24 11/26/2023 LIPID PANEL HDL cholesterol 53 mg/dL >39 Not Available [facility] ([facility]) [address] [facility] [place], [address], 11/26/2023 08:29:17 11/25/19 24 11/26/2023 LIPID PANEL VLDL cholesterol nayana 32 mg/dL 5-40 Not Available [facility] ([facility]) [address] [place], [address], 11/26/2023 08:29:17 11/25/19 24 11/26/2023 LIPID PANEL LDL chol calc ([facility]) 101 mg/dL 0-99 above high normal Not Available [facility] ([facility]) [address] [place], [address], 11/26/2023 08:29:17 11/25/19 24 11/26/2023 COMP. METAB OLIC PANEL (14) glucose 86 mg/dL 70-99 Not Available [facility] ([facility]) [address] [place], [address], 11/26/2023 08:29:18 11/25/19 24 11/26/2023 COMP. METAB OLIC PANEL (14) BUN 12 mg/dL 8-27 Not Available [facility] ([facility]) [address] [place], [address], 11/26/2023 08:29:18 11/25/19 24 11/26/2023 COMP. METAB OLIC PANEL (14) creatinine 0.86 mg/dL 0.57-1 .00 Not Available [facility] ([facility]) [address] [place], [id number], 11/26/2023 08:29:18 11/25/19 24 11/26/2023 COMP. METAB OLIC PANEL (14) eGFR 75 mL/mi n/1.7 3 >59 Not Available [facility] ([facility]) [address] [place], [id number], 11/26/2023 08:29:18 11/25/19 24 11/26/2023 COMP. METAB OLIC PANEL (14) BUN/creatini ne ratio 14 12-28 Not Available [facility] ([facility]) [address] [place], [id number], 11/26/2023 08:29:18 11/25/19 24 11/26/2023 COMP. METAB OLIC PANEL (14) sodium 141 mmol/ L 134-14 4 Not Available [facility] ([facility]) [address] [place], [id number], 11/26/2023 08:29:18 11/25/19 24 11/26/2023 COMP. METAB OLIC PANEL (14) potassium 4.4 mmol/ L 3.5-5. 2 Not Available [facility] ([facility]) [address] [place], [id number], 11/26/2023 08:29:18 11/25/19 24 11/26/2023 COMP. METAB OLIC PANEL (14) chloride 102 mmol/ L 96-106 Not Available [facility] ([facility]) [address] [place], [id number], 11/26/2023 08:29:18 11/25/19 24 11/26/2023 COMP. METAB OLIC PANEL (14) carbon dioxide, total 24 mmol/ L 20-29 Not Available [facility] ([facility]) [address] [place], [address], 11/26/2023 08:29:18 11/25/19 24 11/26/2023 COMP. METAB OLIC PANEL (14) calcium 9.6 mg/dL 8.7-10 .3 Not Available [facility] ([facility]) [address] [place], [address], 11/26/2023 08:29:18 11/25/19 24 11/26/2023 COMP. METAB OLIC PANEL (14) protein, total 7.1 g/dL 6.0-8. 5 Not Available [facility] ([facility]) [address] [place], [address], 11/26/2023 08:29:18 11/25/19 24 11/26/2023 COMP. METAB OLIC PANEL (14) albumin 4.6 g/dL 3.9-4. 9 Not Available [facility] ([facility]) [address] [place], [address], 11/26/2023 08:29:18 11/25/19 24 11/26/2023 COMP. METAB OLIC PANEL (14) globulin, total 2.5 g/dL 1.5-4. 5 Not Available [facility] ([facility]) [address] [place], [id number], 11/26/2023 08:29:18 11/25/19 24 11/26/2023 COMP. METAB OLIC PANEL (14) A/G ratio 1.8 1.2-2. 2 Not Available [facility] ([facility]) [address] [place], [address], 11/26/2023 08:29:18 11/25/19 24 11/26/2023 COMP. METAB OLIC PANEL (14) bilirubin, total 0.7 mg/dL 0.0-1. 2 Not Available [facility] ([facility]) [address] [place], [address], 11/26/2023 08:29:18 11/25/19 24 11/26/2023 COMP. METAB OLIC PANEL (14) alkaline phosphatase 106 IU/L 44-121 Not Available [facility] ([facility]) [address] [facility], [place], [address], 11/26/2023 08:29:18 11/25/19 24 11/26/2023 COMP. METAB OLIC PANEL (14) AST (SGOT) 25 IU/L 0-40 Not Available [facility] ([facility]) [address] [facility], [place], [address], 11/26/2023 08:29:18 11/25/19 24 11/26/2023 COMP. METAB OLIC PANEL (14) ALT (SGPT) 14 IU/L 0-32 Not Available [facility] ([facility]) [address] [facility], [place], [address], 11/26/2023 08:29:18 11/25/19 24 11/26/2023 CBC WITH DIFFE RENTI AL/PL ATELE T WBC 8.0 x10e3 /uL 3.4-10 .8 Not Available [facility] ([facility]) [address] [facility], [place], [address], 11/26/2023 08:29:19 11/25/19 24 11/26/2023 CBC WITH DIFFE RENTI AL/PL ATELE T RBC 4.62 x10e6 /uL 3.77-5 .28 Not Available [facility] ([facility]) [address] [facility], [place], [address], 11/26/2023 08:29:19 11/25/19 24 11/26/2023 CBC WITH DIFFE RENTI AL/PL ATELE T hemoglobin 14.1 g/dL 11.1-1 5.9 Not Available [facility] ([facility]) [address] [place], [address], 11/26/2023 08:29:19 11/25/19 24 11/26/2023 CBC WITH DIFFE RENTI AL/PL ATELE T hematocrit 43.4 % 34.0-4 6.6 Not Available [facility] ([facility]) [address] [facility], [place], [address], 11/26/2023 08:29:19 11/25/19 24 11/26/2023 CBC WITH DIFFE RENTI AL/PL ATELE T MCV 94 fL 79-97 Not Available [facility] ([facility]) [address] [facility], [place], [address], 11/26/2023 08:29:19 11/25/19 24 11/26/2023 CBC WITH DIFFE RENTI AL/PL ATELE T MCH 30.5 pg 26.6-3 3.0 Not Available [facility] ([facility]) [address] [facility], [place], [address], 11/26/2023 08:29:19 11/25/19 24 11/26/2023 CBC WITH DIFFE RENTI AL/PL ATELE T MCHC 32.5 g/dL 31.5-3 5.7 Not Available [facility] ([facility]) [address] [facility], [place], [address], 11/26/2023 08:29:19 11/25/19 24 11/26/2023 CBC WITH DIFFE RENTI AL/PL ATELE T RDW 12.7 % 11.7-1 5.4 Not Available [facility] ([facility]) [address] [place], [address], 11/26/2023 08:29:19 11/25/19 24 11/26/2023 CBC WITH DIFFE RENTI AL/PL ATELE T platelets 272 x10e3 /uL 150-45 0 Not Available [facility] ([facility]) [address] [place], [address], 11/26/2023 08:29:19 11/25/19 24 11/26/2023 CBC WITH DIFFE RENTI AL/PL ATELE T neutrophils 63 % notest ab. Not Available [facility] ([facility]) [address] [facility], [place], [address], 11/26/2023 08:29:19 11/25/19 24 11/26/2023 CBC WITH DIFFE RENTI AL/PL ATELE T lymphs 20 % notest ab. Not Available [facility] ([facility]) [address] [facility], [place], [address], 11/26/2023 08:29:19 11/25/19 24 11/26/2023 CBC WITH DIFFE RENTI AL/PL ATELE T monocytes 9 % notest ab. Not Available [facility] ([facility]) [address] [facility], [place], [address], 11/26/2023 08:29:19 11/25/19 24 11/26/2023 CBC WITH DIFFE RENTI AL/PL ATELE T eos 7 % notest ab. Not Available [facility] ([facility]) [address] [facility], [place], [address], 11/26/2023 08:29:19 11/25/19 24 11/26/2023 CBC WITH DIFFE RENTI AL/PL ATELE T basos 1 % notest ab. Not Available [facility] ([facility]) [address] [facility], [place], [address], 11/26/2023 08:29:19 11/25/19 24 11/26/2023 CBC WITH DIFFE RENTI AL/PL ATELE T neutrophils (absolute) 5.0 x10e3 /uL 1.4-7. 0 Not Available [facility] ([facility]) [address] [facility], [place], [address], 11/26/2023 08:29:19 11/25/19 24 11/26/2023 CBC WITH DIFFE RENTI AL/PL ATELE T lymphs (absolute) 1.6 x10e3 /uL 0.7-3. 1 Not Available [facility] ([facility]) [address] [facility], [place], [address], 11/26/2023 08:29:19 11/25/19 24 11/26/2023 CBC WITH DIFFE RENTI AL/PL ATELE T monocytes(ab solute) 0.8 x10e3 /uL 0.1-0. 9 Not Available [facility] ([facility]) [address] [facility], [place], [address], 11/26/2023 08:29:19 11/25/1911/26/2023 CBC WITH DIFFE RENTI AL/PL ATELE T eos (absolute) 0.6 x10e3 /uL 0.0-0. 4 above high normal Not Available [facility] ([facility]) [address] [facility], [place], [address], 11/26/2023 08:29:19 11/25/19 24 11/26/2023 CBC WITH DIFFE RENTI AL/PL ATELE T baso (absolute) 0.1 x10e3 /uL 0.0-0. 2 Not Available [facility] ([facility]) [address] [facility], [place], [address], 11/26/2023 08:29:19 11/25/19 24 11/26/2023 CBC WITH DIFFE RENTI AL/PL ATELE T immature granulocytes 0 % notest ab. Not Available [facility] ([facility]) [address] [place], [address], 11/26/2023 08:29:19 11/25/1911/26/2023 CBC WITH DIFFE RENTI AL/PL ATELE T immature grans (abs) 0.0 x10e3 /uL 0.0-0. 1 Not Available [facility] ([facility]) [address] [place], [address], 11/26/2023 08:29:19 12/15/19 24 12/15/2023 COLOG UARD cologuard result reportable Negati ve negati ve normal NEGAT LEONARD TEST RESUL T. A negat leonard Colog uard resul t indic ates a low likel ihood that a color ectal cance r (CRC) or advan alex adeno ma (freedom omato us polyp s with more advan alex pre-m align ant featu res) is prese nt. The [facility] e that a perso n with a negat leonard Colog uard test has a color ectal cance r is less than 1 in 1500 (nega tive predi ctive value >99.9 %) or has an advan alex adeno ma is less than 5.3% (nega tive predi ctive value 94.7% ). These data are based on a prosp ectiv e cross -sect ional study of ,00 0 indiv idual s at [facility] risk for color ectal cance r who were scree rachna with both Colog uard and colon oscop y. (Sheyla Hilario et al, N Engl J Med 2014; 370(1 4):12 86-12 97) The jose l value (refe rence range ) for this assay is negat leonard. COLOG UARD RE-SC RENETTA EAGLE RECOM MENDA TION: Perio dic color ectal cance r scree maria antonia is an impor tant part of preve ntive healt hcare for asymp tomat ic indiv idual s at [facility] ge risk for color ectal cance r. Follo wing a negat leonard Colog uard resul t, the Ameri can Cance r Socie ty and U.S. Multi -Soci ety Task Force scree maria antonia guide lines recom mend a Colog uard re-sc reesofy ng inter ann of 3 years . Refer ences : Ameri can Cance r Socie ty Guide line for Color ectal Cance r Scree maria antonia: https ://milly w.can cer.o rg/ca ncer/ colon -rect al-ca ncer/ detec tion- diagn osis- stagi ng/ac s-rec ommen datio ns.ht ml.; Primo DK, Adelia mittal CR, Alvarez hay JK, Color ectal Cance r Scree maria antonia: Recom menda tions for Physi cians and Patie nts from the U.S. Multi -Soci ety Task Force on Color ectal Cance r Scree maria antonia , Oskar solis y 2017; 112:1 016-1 030. TEST DESCR IPTIO N: [place] site algor ithmi c kamala sis of stool DNA-b iocampos ryan with hemog lobin immun oassa y. Quant [...] years or older , who are at [facility] for color ectal cance r (CRC) . Colog uard has been appro patsy for use by the U.S. FDA. The perfo rmanc e of Colog uard was estab lishe d in a cross secti onal study of [facility] adult s aged 50-84 . Colog uard perfo rmanc e in patie nts ages 45 to 49 years was estim ated by sub-g roup kamala sis of near- age group s. Colon oscop ies perfo rmed for a posit leonard resul t may find as the most clini dayna signi gay pablo lesio n: color ectal cance r [4.0% ], [...] -sect ional scree maria antonia study of 10,00 0 indiv idual s at [facility] risk for color ectal cance r who were scree rachna with both Colog uard and colon oscop y. (Sheyla Phillips al, N Engl J Med 2014; 370(1 [...] uard perfo rmanc e data in a 10,00 0 patie nt pivot al study using colon oscop y as the refer ence metho d can be acces sed at the follo wing locat ion: www.e xactl abs.c om/re sults . Addit ional descr iptio n of the Colog uard test proce ss, warni ngs and preca ution s can be found at www.c ologu kevin.c om. Not Available [facility] [address], [place], [address], 12/23/2023 01:26:02 07/01/20 24 07/02/2024 LIPID PANEL cholesterol, total 168 mg/dL 100-19 9 Not Available [facility] ([facility]) [address] [facility], [place], [address], 07/02/2024 09:13:52 07/01/20 24 07/02/2024 LIPID PANEL triglyceride s 171 mg/dL 0-149 above high normal Not Available [facility] ([facility]) [address] [facility], [place], [address], 07/02/2024 09:13:52 07/01/20 24 07/02/2024 LIPID PANEL HDL cholesterol 52 mg/dL >39 Not Available [facility] ([facility]) [address] [facility], [place], [address], 07/02/2024 09:13:52 07/01/20 24 07/02/2024 LIPID PANEL VLDL cholesterol nayana 29 mg/dL 5-40 Not Available [facility] ([facility]) [address] [place], [address], 07/02/2024 09:13:52 07/01/20 24 07/02/2024 LIPID PANEL LDL chol calc ([facility]) 87 mg/dL 0-99 Not Available [facility] ([facility]) [address] [place], [address], 07/02/2024 09:13:52 07/01/20 24 07/02/2024 COMP. METAB OLIC PANEL (14) glucose 77 mg/dL 70-99 Not Available [facility] ([facility]) [address] [facility], [place], [address], 07/02/2024 09:13:53 07/01/20 24 07/02/2024 COMP. METAB OLIC PANEL (14) BUN 12 mg/dL 8-27 Not Available [facility] ([facility]) [address] [place], [address], 07/02/2024 09:13:53 07/01/20 24 07/02/2024 COMP. METAB OLIC PANEL (14) creatinine 0.79 mg/dL 0.57-1 .00 Not Available [facility] ([facility]) [address] [place], [address], 07/02/2024 09:13:53 07/01/20 24 07/02/2024 COMP. METAB OLIC PANEL (14) eGFR 83 mL/mi n/1.7 3 >59 Not Available [facility] ([facility]) [address] [place], [address], 07/02/2024 09:13:53 07/01/20 24 07/02/2024 COMP. METAB OLIC PANEL (14) BUN/creatini ne ratio 15 12-28 Not Available [facility] ([facility]) [address] [place], [id number], 07/02/2024 09:13:53 07/01/20 24 07/02/2024 COMP. METAB OLIC PANEL (14) sodium 141 mmol/ L 134-14 4 Not Available [facility] ([facility]) [address] [place], [id number], 07/02/2024 09:13:53 07/01/20 24 07/02/2024 COMP. METAB OLIC PANEL (14) potassium 4.5 mmol/ L 3.5-5. 2 Not Available [facility] ([facility]) [address] [place], [id number], 07/02/2024 09:13:53 07/01/20 24 07/02/2024 COMP. METAB OLIC PANEL (14) chloride 102 mmol/ L 96-106 Not Available [facility] ([facility]) [address] [place], [id number], 07/02/2024 09:13:53 07/01/20 24 07/02/2024 COMP. METAB OLIC PANEL (14) carbon dioxide, total 27 mmol/ L 20-29 Not Available [facility] ([facility]) [address] [place], [id number], 07/02/2024 09:13:53 07/01/20 24 07/02/2024 COMP. METAB OLIC PANEL (14) calcium 9.8 mg/dL 8.7-10 .3 Not Available [facility] ([facility]) [address] [place], [id number], 07/02/2024 09:13:53 07/01/20 24 07/02/2024 COMP. METAB OLIC PANEL (14) protein, total 7.0 g/dL 6.0-8. 5 Not Available [facility] ([facility]) [address] [facility] [place], [id number], 07/02/2024 09:13:53 07/01/20 24 07/02/2024 COMP. METAB OLIC PANEL (14) albumin 4.3 g/dL 3.9-4. 9 Not Available [facility] ([facility]) [address] [facility], [place], [address], 07/02/2024 09:13:53 07/01/20 24 07/02/2024 COMP. METAB OLIC PANEL (14) globulin, total 2.7 g/dL 1.5-4. 5 Not Available [facility] ([facility]) [address] [facility], [place], [id number], 07/02/2024 09:13:53 07/01/20 24 07/02/2024 COMP. METAB OLIC PANEL (14) bilirubin, total 0.9 mg/dL 0.0-1. 2 Not Available [facility] ([facility]) [address] [facility], [place], [address], 07/02/2024 09:13:53 07/01/20 24 07/02/2024 COMP. METAB OLIC PANEL (14) alkaline phosphatase 111 IU/L 44-121 Not Available [facility] ([facility]) [address] [facility], [place], [address], 07/02/2024 09:13:53 07/01/20 24 07/02/2024 COMP. METAB OLIC PANEL (14) AST (SGOT) 30 IU/L 0-40 Not Available [facility] ([facility]) [address] [facility], [place], [address], 07/02/2024 09:13:53 07/01/20 24 07/02/2024 COMP. METAB OLIC PANEL (14) ALT (SGPT) 21 IU/L 0-32 Not Available [facility] ([facility]) [address] [facility], [place], [address], 07/02/2024 09:13:53 07/01/20 24 07/02/2024 CBC WITH DIFFE RENTI AL/PL ATELE T WBC 8.7 x10e3 /uL 3.4-10 .8 Not Available [facility] ([facility]) [address] [facility], [place], [address], 07/02/2024 09:13:54 07/01/20 24 07/02/2024 CBC WITH DIFFE RENTI AL/PL ATELE T RBC 4.78 x10e6 /uL 3.77-5 .28 Not Available [facility] ([facility]) [address] [facility], [place], [address], 07/02/2024 09:13:54 07/01/20 24 07/02/2024 CBC WITH DIFFE RENTI AL/PL ATELE T hemoglobin 14.8 g/dL 11.1-1 5.9 Not Available [facility] ([facility]) [address] [facility], [place], [address], 07/02/2024 09:13:54 07/01/20 24 07/02/2024 CBC WITH DIFFE RENTI AL/PL ATELE T hematocrit 44.8 % 34.0-4 6.6 Not Available [facility] ([facility]) [address] [facility], [place], [address], 07/02/2024 09:13:54 07/01/20 24 07/02/2024 CBC WITH DIFFE RENTI AL/PL ATELE T MCV 94 fL 79-97 Not Available [facility] ([facility]) [address] [place], [address], 07/02/2024 09:13:54 07/01/20 24 07/02/2024 CBC WITH DIFFE RENTI AL/PL ATELE T MCH 31.0 pg 26.6-3 3.0 Not Available [facility] ([facility]) [address] [place], [address], 07/02/2024 09:13:54 07/01/20 24 07/02/2024 CBC WITH DIFFE RENTI AL/PL ATELE T MCHC 33.0 g/dL 31.5-3 5.7 Not Available [facility] ([facility]) [address] [facility], [place], [address], 07/02/2024 09:13:54 07/01/20 24 07/02/2024 CBC WITH DIFFE RENTI AL/PL ATELE T RDW 12.6 % 11.7-1 5.4 Not Available [facility] ([facility]) [address] [facility], [place], [address], 07/02/2024 09:13:54 07/01/20 24 07/02/2024 CBC WITH DIFFE RENTI AL/PL ATELE T platelets 303 x10e3 /uL 150-45 0 Not Available [facility] ([facility]) [address] [facility], [place], [address], 07/02/2024 09:13:54 07/01/20 24 07/02/2024 CBC WITH DIFFE RENTI AL/PL ATELE T neutrophils 64 % notest ab. Not Available [facility] ([facility]) [address] [facility], [place], [place], [address], 07/02/2024 09:13:54 07/01/20 24 07/02/2024 CBC WITH DIFFE RENTI AL/PL ATELE T lymphs 20 % notest ab. Not Available [facility] ([facility]) [address] [facility], [place], [address], 07/02/2024 09:13:54 07/01/20 24 07/02/2024 CBC WITH DIFFE RENTI AL/PL ATELE T monocytes 9 % notest ab. Not Available [facility] ([facility]) [address] [facility], [place], [address], 07/02/2024 09:13:54 07/01/20 24 07/02/2024 CBC WITH DIFFE RENTI AL/PL ATELE T eos 5 % notest ab. Not Available [facility] ([facility]) [address] [facility], [place], [address], 07/02/2024 09:13:54 07/01/20 24 07/02/2024 CBC WITH DIFFE RENTI AL/PL ATELE T basos 1 % notest ab. Not Available [facility] ([facility]) [address] [facility], [place], [address], 07/02/2024 09:13:54 07/01/20 24 07/02/2024 CBC WITH DIFFE RENTI AL/PL ATELE T neutrophils (absolute) 5.6 x10e3 /uL 1.4-7. 0 Not Available [facility] ([facility]) [address] [facility], [place], [address], 07/02/2024 09:13:54 07/01/20 24 07/02/2024 CBC WITH DIFFE RENTI AL/PL ATELE T lymphs (absolute) 1.8 x10e3 /uL 0.7-3. 1 Not Available [facility] ([facility]) [address] [facility], [place], [address], 07/02/2024 09:13:54 07/01/20 24 07/02/2024 CBC WITH DIFFE RENTI AL/PL ATELE T monocytes(ab solute) 0.8 x10e3 /uL 0.1-0. 9 Not Available [facility] ([facility]) [address] [facility], [place], [address], 07/02/2024 09:13:54 07/01/20 24 07/02/2024 CBC WITH DIFFE RENTI AL/PL ATELE T eos (absolute) 0.4 x10e3 /uL 0.0-0. 4 Not Available [facility] ([facility]) [address] [facility], [place], [address], 07/02/2024 09:13:54 07/01/20 24 07/02/2024 CBC WITH DIFFE RENTI AL/PL ATELE T baso (absolute) 0.1 x10e3 /uL 0.0-0. 2 Not Available [facility] ([facility]) [address] [facility], [place], [address], 07/02/2024 09:13:54 07/01/20 24 07/02/2024 CBC WITH DIFFE RENTI AL/PL ATELE T immature granulocytes 1 % notest ab. Not Available [facility] ([facility]) [address] [facility], [place], [address], 07/02/2024 09:13:54 07/01/20 24 07/02/2024 CBC WITH DIFFE RENTI AL/PL ATELE T immature grans (abs) 0.0 x10e3 /uL 0.0-0. 1 Not Available [facility] ([facility]) [address] [facility], [place], [address], 07/02/2024 09:13:54 03/06/20 25 03/07/2025 LIPID PANEL cholesterol, total 169 mg/dL 100-19 9 Not Available [facility] ([facility]) [address] [place], [address], 03/07/2025 07:07:14 03/06/20 25 03/07/2025 LIPID PANEL triglyceride s 186 mg/dL 0-149 above high normal Not Available [facility] ([facility]) [address] [facility], [place], [address], 03/07/2025 07:07:14 03/06/20 25 03/07/2025 LIPID PANEL HDL cholesterol 47 mg/dL >39 Not Available [facility] ([facility]) [address] [facility], [place], [address], 03/07/2025 07:07:14 03/06/20 25 03/07/2025 LIPID PANEL VLDL cholesterol nayana 32 mg/dL 5-40 Not Available [facility] ([facility]) [address] [facility], [place], [address], 03/07/2025 07:07:14 03/06/20 25 03/07/2025 LIPID PANEL LDL chol calc ([facility]) 90 mg/dL 0-99 Not Available [facility] ([facility]) [address] [facility], [place], [address], 03/07/2025 07:07:14 03/06/20 25 03/07/2025 COMP. METAB OLIC PANEL (14) glucose 83 mg/dL 70-99 Not Available [facility] ([facility]) [address] [facility], [place], [address], 03/07/2025 07:07:15 03/06/20 25 03/07/2025 COMP. METAB OLIC PANEL (14) BUN 11 mg/dL 8-27 Not Available [facility] ([facility]) [address] [facility], [place], [address], 03/07/2025 07:07:15 03/06/20 25 03/07/2025 COMP. METAB OLIC PANEL (14) creatinine 0.82 mg/dL 0.57-1 .00 Not Available [facility] ([facility]) [address] [facility], [place], [address], 03/07/2025 07:07:15 03/06/20 25 03/07/2025 COMP. METAB OLIC PANEL (14) eGFR 79 mL/mi n/1.7 3 >59 Not Available [facility] ([facility]) [address] [facility], [place], [address], 03/07/2025 07:07:15 03/06/20 25 03/07/2025 COMP. METAB OLIC PANEL (14) BUN/creatini ne ratio 13 12-28 Not Available [facility] ([facility]) [address] [place], [address], 03/07/2025 07:07:15 03/06/20 25 03/07/2025 COMP. METAB OLIC PANEL (14) sodium 139 mmol/ L 134-14 4 Not Available [facility] ([facility]) [address] [place], [address], 03/07/2025 07:07:15 03/06/20 25 03/07/2025 COMP. METAB OLIC PANEL (14) potassium 3.9 mmol/ L 3.5-5. 2 Not Available [facility] ([facility]) [address] [place], [address], 03/07/2025 07:07:15 03/06/20 25 03/07/2025 COMP. METAB OLIC PANEL (14) chloride 101 mmol/ L 96-106 Not Available [facility] ([facility]) [address] [place], [address], 03/07/2025 07:07:15 03/06/20 25 03/07/2025 COMP. METAB OLIC PANEL (14) carbon dioxide, total 23 mmol/ L 20-29 Not Available [facility] ([facility]) [address] [place], [address], 03/07/2025 07:07:15 03/06/20 25 03/07/2025 COMP. METAB OLIC PANEL (14) calcium 9.4 mg/dL 8.7-10 .3 Not Available [facility] ([facility]) [address] [place], [address], 03/07/2025 07:07:15 03/06/20 25 03/07/2025 COMP. METAB OLIC PANEL (14) protein, total 6.8 g/dL 6.0-8. 5 Not Available [facility] ([facility]) [address] [place], [address], 03/07/2025 07:07:15 03/06/20 25 03/07/2025 COMP. METAB OLIC PANEL (14) albumin 4.3 g/dL 3.9-4. 9 Not Available [facility] ([facility]) [address] [facility], [place], [address], 03/07/2025 07:07:15 03/06/20 25 03/07/2025 COMP. METAB OLIC PANEL (14) globulin, total 2.5 g/dL 1.5-4. 5 Not Available [facility] ([facility]) [address] [facility], [place], [address], 03/07/2025 07:07:15 03/06/20 25 03/07/2025 COMP. METAB OLIC PANEL (14) bilirubin, total 0.8 mg/dL 0.0-1. 2 Not Available [facility] ([facility]) [address] [facility], [place], [address], 03/07/2025 07:07:15 03/06/20 25 03/07/2025 COMP. METAB OLIC PANEL (14) alkaline phosphatase 110 IU/L 44-121 Not Available [facility] ([facility]) [address] [facility], [place], [address], 03/07/2025 07:07:15 03/06/20 25 03/07/2025 COMP. METAB OLIC PANEL (14) AST (SGOT) 22 IU/L 0-40 Not Available [facility] ([facility]) [address] [facility], [place], [address], 03/07/2025 07:07:15 03/06/20 25 03/07/2025 COMP. METAB OLIC PANEL (14) ALT (SGPT) 13 IU/L 0-32 Not Available [facility] ([facility]) [address] [facility], [place], [address], 03/07/2025 07:07:15 03/06/20 25 03/07/2025 CBC WITH DIFFE RENTI AL/PL ATELE T WBC 9.2 x10e3 /uL 3.4-10 .8 Not Available [facility] ([facility]) [address] [facility], [place], [address], 03/07/2025 07:07:15 03/06/20 25 03/07/2025 CBC WITH DIFFE RENTI AL/PL ATELE T RBC 4.65 x10e6 /uL 3.77-5 .28 Not Available [facility] ([facility]) [address] [facility], [place], [address], 03/07/2025 07:07:15 03/06/20 25 03/07/2025 CBC WITH DIFFE RENTI AL/PL ATELE T hemoglobin 14.4 g/dL 11.1-1 5.9 Not Available [facility] ([facility]) [address] [facility], [place], [address], 03/07/2025 07:07:15 03/06/20 25 03/07/2025 CBC WITH DIFFE RENTI AL/PL ATELE T hematocrit 44.1 % 34.0-4 6.6 Not Available [facility] ([facility]) [address] [facility], [place], [address], 03/07/2025 07:07:15 03/06/2003/07/2025 CBC WITH DIFFE RENTI AL/PL ATELE T MCV 95 fL 79-97 Not Available [facility] ([facility]) [address] [facility], [place], [address], 03/07/2025 07:07:15 03/06/2003/07/2025 CBC WITH DIFFE RENTI AL/PL ATELE T MCH 31.0 pg 26.6-3 3.0 Not Available [facility] ([facility]) [address] [facility], [place], [address], 03/07/2025 07:07:15 03/06/20 25 03/07/2025 CBC WITH DIFFE RENTI AL/PL ATELE T MCHC 32.7 g/dL 31.5-3 5.7 Not Available [facility] ([facility]) [address], [place], [address], 03/07/2025 07:07:15 03/06/20 25 03/07/2025 CBC WITH DIFFE RENTI AL/PL ATELE T RDW 12.7 % 11.7-1 5.4 Not Available [facility] ([facility]) [address] [facility], [place], [address], 03/07/2025 07:07:15 03/06/20 25 03/07/2025 CBC WITH DIFFE RENTI AL/PL ATELE T platelets 258 x10e3 /uL 150-45 0 Not Available [facility] ([facility]) [address] [facility], [place], [address], 03/07/2025 07:07:15 03/06/20 25 03/07/2025 CBC WITH DIFFE RENTI AL/PL ATELE T neutrophils 71 % notest ab. Not Available [facility] ([facility]) [address] [facility], [place], [address], 03/07/2025 07:07:15 03/06/20 25 03/07/2025 CBC WITH DIFFE RENTI AL/PL ATELE T lymphs 15 % notest ab. Not Available [facility] ([facility]) [address] [facility], [place], [address], 03/07/2025 07:07:15 03/06/20 25 03/07/2025 CBC WITH DIFFE RENTI AL/PL ATELE T monocytes 7 % notest ab. Not Available [facility] ([facility]) [address] [facility], [place], [address], 03/07/2025 07:07:15 03/06/20 25 03/07/2025 CBC WITH DIFFE RENTI AL/PL ATELE T eos 7 % notest ab. Not Available [facility] ([facility]) [address] [facility], [place], [address], 03/07/2025 07:07:15 03/06/20 25 03/07/2025 CBC WITH DIFFE RENTI AL/PL ATELE T basos 0 % notest ab. Not Available [facility] ([facility]) [address] [facility], [place], [address], 03/07/2025 07:07:15 03/06/20 25 03/07/2025 CBC WITH DIFFE RENTI AL/PL ATELE T neutrophils (absolute) 6.5 x10e3 /uL 1.4-7. 0 Not Available [facility] ([facility]) [address] [facility], [place], [address], 03/07/2025 07:07:15 03/06/20 25 03/07/2025 CBC WITH DIFFE RENTI AL/PL ATELE T lymphs (absolute) 1.4 x10e3 /uL 0.7-3. 1 Not Available [facility] ([facility]) [address] [facility], [place], [address], 03/07/2025 07:07:15 03/06/20 25 03/07/2025 CBC WITH DIFFE RENTI AL/PL ATELE T monocytes(ab solute) 0.7 x10e3 /uL 0.1-0. 9 Not Available [facility] ([facility]) [address] [facility], [place], [address], 03/07/2025 07:07:15 03/06/20 25 03/07/2025 CBC WITH DIFFE RENTI AL/PL ATELE T eos (absolute) 0.6 x10e3 /uL 0.0-0. 4 above high normal Not Available [facility] ([facility]) [address] [place], [address], 03/07/2025 07:07:15 03/06/20 25 03/07/2025 CBC WITH DIFFE RENTI AL/PL ATELE T baso (absolute) 0.0 x10e3 /uL 0.0-0. 2 Not Available [facility] ([facility]) [address] [facility], [place], [address], 03/07/2025 07:07:15 03/06/20 25 03/07/2025 CBC WITH DIFFE RENTI AL/PL ATELE T immature granulocytes 0 % notest ab. Not Available [facility] ([facility]) [address] [facility], [place], [address], 03/07/2025 07:07:15 03/06/20 25 03/07/2025 CBC WITH DIFFE RENTI AL/PL ATELE T immature grans (abs) 0.0 x10e3 /uL 0.0-0. 1 Not Available [facility] ([facility]) [address] [facility], [place], [address], 03/07/2025 07:07:15 08/04/19 25 03/20/2023 MAMMO , scree maria antonia, digit al, bilat eral No observ ation record ed. BARCODE Not Available 2024 19:59:41 08/16/19 25 08/16/2024 MAMMO , scree maria antonia, digit al, bilat eral No observ ation record ed. [facility] [address], [place], [address], 01/10/2025 14:47:50 01/12/20 25 03/19/2022 DEXA No observ ation record ed. [facility] [address], [place], [address], 01/16/2025 12:44:35 03/06/2002/14/2025 , [facility]dio gram No observ ation record ed. [facility] [address], [place], [address], 03/17/2025 15:25:42 03/28/20 25 03/21/2025 nerve condu ction study No observ ation record ed. [place] [id number] [facility] [address], [place], [address], 04/07/2025 15:51:56 05/31/2005/31/2025 pharm acolo gic nucle ar stres s test No observ ation record ed. [address], [place], [address], 06/03/2025 23:04:07 05/31/20 25 05/31/2025 pharm acolo gic nucle ar stres s test No observ ation record ed. [address], [place], [address], 06/03/2025 23:04:07 05/31/20 25 05/31/2025 pharm acolo gic nucle ar stres s test No observ ation record ed. [address], [place], [address], 06/03/2025 23:04:07 Result Notes None recorded. Problems Name Problem SNOMED Code Status Onset Date Resolution Date Notes Provider Name and Address Organization Details Recorded Time Hyperlipidemia 22560820 Active 2023 Jina Palmer MA [facility], [place] - [facility] 4 14:50:58 Gastroesophage al reflux disease without esophagitis 925466035 Active 2023 Kavitha Albert MD Attn: Lilia johnson,[address] [place], [address], [place] [facility] 4 22:44:13 Osteoporosis 22891230 Active 2023 Kavitha Albert MD Attn: Lilia johnson,[address] [facility], [place], [address], [place] [facility] 4 22:44:14 Osteoarthritis 249887408 Active 2023 Kavitha Albert MD Attn: Lilia johnson,[address] [facility], [place], [address], [place] [facility] 4 12:04:55 Problem Notes None recorded. Procedures Surgical History Date Name Laterality Status Provider Name and Address Organization Details Recorded Time Cholecystectomy completed Anna Mcgill MA [facility] 11/25/2023 14:04:08 Hernia Repair completed Anna Mcgill MA [facility] 11/25/2023 14:04:14 ligation of bilateral fallopian tubes completed Anna Mcgill MA [facility] 11/25/2023 14:04:22 section completed Anna Mcgill MA [facility] 11/25/2023 14:04:27 Tonsillectomy completed Anna Mcgill MA [facility] 11/25/2023 14:04:34 Imaging Results None recorded. Procedure Notes None recorded. Medical Equipment None Reported. Allergies Allergen ID Allergen Name Allergen Category Reaction Reaction Severity Criticality Documentation Date Start Date Code Code System Note Provider Name and Address Organization Details Recorded Time 527478 Substance with sulfonami de structure and antibacte rial mechanism of action (substanc e) medicatio n anaphylax is Not available Not available 11/25/2023 71437 8003 [facility] 4 13:59:52 397421 Iodinated contrast media (substanc e) medicatio n Not available Not available Not available 01/09/2025 65145 2003 [facility] 5 13:56:50 Medications Name Sig Start Date Stop Date Status Note LastModified by Organization Details LastModified Time amoxicillin 500 mg capsule TAKE 1 CAPSULE BY MOUTH EVERY 8 HOURS UNTIL GONE 01/09 completed Not Available Not Available Not Available atorvastati n 40 mg tablet TAKE 1 TABLET BY MOUTH ONCE DAILY active Not Available Not Available No t Available azithromyci n 250 mg tablet TAKE 2 [...] THE APPOINTME NT. YOU MUST HAVE A DIPLOMATIC INTERPRETER. 11/24 completed Not Available Not Available Not [...] Updated DateTime 4 166.37 cm 33 kg/m2 91134.2 2 g 75 /min 97 % 97 % 132/80 mm[Hg] Anna Mcgill MA [facility] 4 14:03:47 Date Recorded Body height Body mass index (BMI) Body weight Heart rate Oxygen saturation Oxygen saturation in Arterial blood by Pulse oximetry Systolic And Diastolic Provider Name and Address Organization Details Last Updated DateTime 5 166.37 cm 31.5 kg/m2 48222.5 3 g 70 /min 96 % 96 % 122/78 mm[Hg] [facility] 5 13:56:29 Date Recorded Body height Body mass index (BMI) Body weight Heart rate Oxygen saturation Oxygen saturation in Arterial blood by Pulse oximetry Systolic And Diastolic Provider Name and Address Organization Details Last Updated DateTime 5 166.37 cm 32.6 kg/m2 05316.8 8 g 68 /min 96 % 96 % 138/94 mm[Hg] [facility] 5 14:00:37 Date Recorded Body height Body mass index (BMI) Body weight Heart rate Oxygen saturation Oxygen saturation in Arterial blood by Pulse oximetry Systolic And Diastolic Provider Name and Address Organization Details Last Updated DateTime 5 166.37 cm 32.2 kg/m2 00075.9 g 73 /min 97 % 97 % 128/88 mm[Hg] Jina Palmer MA [facility] 11:34:39 Date Recorded Body height Body mass index (BMI) Body weight Heart rate Oxygen saturation Oxygen saturation in Arterial blood by Pulse oximetry Systolic And Diastolic Provider Name and Address Organization Details Last Updated DateTime 166.37 cm 30.5 kg/m2 50309.6 2 g 79 /min 97 % 97 % 122/82 mm[Hg] Leah Hernandes MA [facility] 4 14:24:43 Social History Question Answer Notes LastModified by Organizat ion Details LastModified Time Tobacco Smoking Status Former Smoker stopped 2023 Jina Palmer MA null, [facility] 05/24/2025 11:32:10 Do You Have An Advance Directive? No Information not available 07/01/2024 Are You Blind Or Do You Have Difficulty Seeing? No Information not available 11/25/2023 In The 14 Days Before Symptom Onset, Have You Had Close Contact With A Laboratory-confir med COVID-19 While That Case Was Ill? No Information not available 07/01/2024 In The 14 Days Before [...] Date Of Your Most Recent Tobacco Screening? 05/24/2025 [email or web address] Information not available 05/24/2025 What Is Your Relationship Status? Information not [...] anxious, or unable to sleep at night)? [id number] Information not available 11/25/2023 Family History Relationship [...] Bone Problems Y Acid Reflux (GERD) Y Allergies Y Osteoporosis Y High Cholesterol Y Gynecological HistoryNo gynecological history recorded. Obstetrics History GPAL:G 0 P 0 0 0 0 Immunizations Vaccine Type Date Status Note Provider Nam e and Address Organization Details Recorded Time Influenza, high-dose, trivalent, PF 3 completed Not Available [facility] 05/24/2025 11:17:22 Influenza, split virus, quadrivalent, preservative 5 completed Not Available [facility] 05/24/2025 11:17:22 Influenza, split virus, quadrivalent, preservative 8 completed Not Available [facility] 05/24/2025 11:17:22 Influenza, split virus, quadrivalent, PF 9 completed Not Available [facility] 05/24/2025 11:17:22 Influenza, split virus, quadrivalent, PF 0 completed Not Available [facility] 05/24/2025 11:17:22 COVID-19, mRNA, LNP-S, PF, 30 mcg/0.3 mL dose 1 completed Not Available [facility] 05/24/2025 11:17:22 COVID-19, mRNA, LNP-S, PF, 30 mcg/0.3 mL dose 1 completed Not Available [facility] 05/24/2025 11:17:22 Influenza, split virus, quadrivalent, PF 1 completed Not Available [facility] 05/24/2025 11:17:22 COVID-19, mRNA, LNP-S, PF, 30 mcg/0.3 mL dose 1 completed Not Available [facility] 05/24/2025 11:17:22 Influenza, split virus, quadrivalent, PF 2 completed Not Available [facility] 05/24/2025 11:17:22 COVID-19, mRNA, LNP-S, bivalent, PF, 30 mcg/0.3 mL dose 2 completed Not Available [facility] 05/24/2025 11:17:22 Influenza, split virus, quadrivalent, PF 3 completed Not Available [facility] 05/24/2025 11:17:22 Influenza, high-dose, trivalent, PF 4 completed Not Available [facility] 05/24/2025 11:17:22 Pneumococcal conjugate PCV20, polysaccharide DTS065 conjugate, adjuvant, PF 4 completed Not Available [facility] 05/24/2025 11:17:22 Tdap 5 completed Maya Lester MA null, [place] - [facility] 01/09/2025 14:09:27 Influenza, high-dose, trivalent, PF 5 completed [facility] 05/24/2025 16:37:33 Past Encounters Encounter ID Performer Location Encounter Start Date Encounter Closed Date Diagnosis/Indication Diagnosis SNOMED-CT Code Diagnosis ICD10 Code Diagnosis IMO Codes Diagnosis Note [id number] MD Marc Alegria (Adult Med) [address] [place] [phone] 11/25/2023 13:49:39 11/25/2023 14:55:41 Hyperlipidemia 88734058 E78.5 Long-term drug therapy 462164916 Z79.899 Screening for malignant neoplasm of colon 099544912 Z12.11 Gastroesop hageal reflux disease without esophagitis 288761976 K21.9 Osteoporosis 68815944 M8 1.0 [id number] MD Marc Alegria (Adult Med) [address] [place] [id number] 07/01/2024 14:11:31 07/01/2024 14:39:51 Body mass index 30+ - obesity 688792985 Z68.30 Obesity 375571725 E66.9 Hyperlipidemia 02330539 E78.5 Long-term drug therapy 822149158 Z79.899 Gastroesop hageal reflux disease without esophagitis 429681240 K21.9 Osteoarthritis 775372525 M19.90 [id number] Kavitha Albert MD [facility] [address] [facility] [address] [place] [address] 01/09/2025 13:47:10 01/09/2025 14:18:43 Body mass index 30+ - obesity 581328855 Z68.31 187858 Obese class I 0756414225 24705 E66.811 3168261095 Requires d iphtheria, tetanus and pertussis vaccination 463910336 Z23 661838 Hyperlipidemia 44697542 E78.5 Gastroesop hageal reflux disease without esophagitis 785719056 K21.9 Osteoarthritis 315175773 M19.90 Systolic murmur 98446060 R01.1 810936 Paresthesia 54231891 R20 .2 69979 Long-term current use of drug therapy 163309272 Z79.899 35330180 [id number] Kavitha Albert MD [facility] [address] [place] [address] 03/06/2025 13:43:27 03/06/2025 14:41:05 Body mass index 30+ - obesity 817685544 Z68.32 493852 Obese class I 2096228860 07462 E66.811 E66.3 1685052050 Cervical radiculopathy 50290826 M54.12 758515 [id number] Kavitha Albert MD [facility] (Adult Med) [address] [place] [phone] 05/24/2025 11:16:20 05/24/2025 12:54:04 Electrocardiogram abnormal 962790311 R94.31 365171 Essential hypertension 13243530 I10 273820 Influenza vaccination given 8491063194 9109 Z23 47099868 Hyperlipidemia 39145085 E78.5 Osteoarthritis 210377922 M19.90 Gastroesop hageal reflux disease without esophagitis 383907880 K21.9 Health Concerns Section Related Observation LastModified by Organization Detai ls LastModified Time None Recorded Concern Status LastModified by Organization Details LastModified Time None Recorded Advance Directives Directive N: Payers Insurance Date Sequence Insurance Name Policy Number Policy Silverio Covered Member ID Silverio Member ID Guarantor Name 05/21/2025 1 [employer] (MEDICARE REPLACEMENT/ADVAN TAGE - HMO) [id number] Romina Higuera [id number] Romina Higuera 01/09/2025 1 [facility] Damari Higuera [id number] Romina Higuera 01/09/2025 1 [facility] - [employer] BASED NETWORK PLAN - [employer] NETWORK [id number] Romina Higuera [id number] Romina Higuera 01/09/2025 1 [employer] (PPO) Romina Higuera [id number] Romina Higuera Notes Date Note Type Note Provider Name and Address Organization Details Recorded Time 11/25/2023 text/html 63-year-old with history of hyperlipidemia anxiety osteoporosis GERD comes in for follow-up of medical problems does not take anything for osteoporosis because of a jaw issue GERD is responsive to [id number] therapy she takes her sertraline for anxiety with no SI or HI atorvastatin for her dyslipidemia ever since she has had COVID she has had some problems with just being kind of foggy mentally Kavitha Albert MD Attn: Accounting, [address] [facility], [place], [address], [place] [facility] 11/30/2023 22:45:45 07/01/2024 text/html hyperlipidemia she is taking her atorvastatin no side effects. Osteoarthritis she was she was Tylenol that seems to be doing fine anxiety doing well on her sertraline without any side effects. 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 this got her neck by Orthopedics she is not dropping anything with the numbness is getting worse Kavitha Albert MD Attn: Accounting, [address] [facility], [place], [address], [place] [facility] 01/09/2025 23:14:21 03/06/2025 text/html GERD stable tries to follow a low-fat diet anxiety is doing fine still with pain neck down left arm from time to time Kavitha Albert MD Attn: Accounting, [address] [facility], [place], [address], [place] [facility] 03/12/2025 17:48:27 05/24/2025 text/html She is going to have some orthopedic surgery coming up trying to follow a low-fat diet takes her atorvastatin regularly no side effects from the sertraline anxiety and depression are doing fine osteoarthritis has been stable no flare-up of GERD she has had no cardiopulmonary or neurological complaints Kavitha Albert MD Attn: Accounting, [address] [facility], [place], [address], [place] [facility] 06/03/2025 16:44:05 OBGyn Episode No OBEpisode recorded.
--- OUTSIDE RECORDS SUMMARY | 2025-06-05 00:27 | XMS_ITS | Data Portability ---
Author Organization [place] [facility], Main Office Address [address] [place] [address] Care Team Providers Care Lettuce Trimmer Name Role Phone EVERTON ALBERT Primary Care Provider [phone] EVERTON ALBERT Referring Provider Assessment Encounter Date Assessment Date Assessment LastModified by Organization Details LastModified Time 02/04/2023 02/04/2023 Continue current therapy blood work has been ordered follow-up in [address] [place] [id number] Not available 02/05/2023 16:18:00 Plan of Treatment Reminders Order Date Submit Date Provider Last Modified By Organization Details Last Modified Time Details Appointments None recorded . Lab CBC w/ auto diff 023 02/05/20 [facility] (Lab), [address] [place], [address], 3 10:13:04 CMP, serum or plasma 023 02/05/20 23 [facility] (Lab), [address] [place], [address], 3 10:13:04 lipid panel, serum 023 02/05/20 [facility] (Lab), [address] [place], [address], 3 10:13:05 Referral None recorded . Procedures [...] bilat eral No observ ation record ed. [id number] [facility] [address], [place], [address], 08/01/2023 21:29:13 Result Notes None recorded. Problems Name Problem SNOMED Code Status Onset Date Resolution Date Notes Provider Name and Address Organization Details Recorded Time Closed fracture of distal end of radius 03704640 Active Not Available [facility] 3 04:52:19 Cervical spondylosis without myelopathy 760470966 Active Not Available [facility] 3 04:52:19 Osteopenia 246863938 Active Not Available [facility] 3 04:52:19 Vitamin D deficiency 02985339 Active Not Available [facility] 3 04:52:19 Sinusitis 60357742 Active Not Available [facility] 3 04:52:19 Osteoarthriti s 672891414 Active Not Available [facility] 3 04:52:19 Umbilical hernia 624634893 Active Not Available [facility] 3 04:52:19 Pain of joint 27959106 Active Not Available [facility] 3 04:52:20 Fracture of forearm 80354317 Active Not Available [facility] 3 04:52:20 Rhinitis 02048267 Active Not Available [facility] 3 04:52:20 Brachial neuritis 95253628 Active Not Available [facility] 3 04:52:20 Spinal stenosis in cervical region 92630441 Active Not Available [facility] 3 04:52:20 Vitamin deficiency 42004079 Active Not Available [facility] 3 04:52:20 Skin lesion 48774655 Active Not Available [facility] 3 04:52:20 Dyslipidemia 059059207 Active 2019 Not Available [facility] 3 04:52:19 Migraine 60075157 Active 2020 Not Available [facility] 3 04:52:19 Hyperlipidemi a 88069389 Active 2021 Not Available [facility] 3 04:52:19 Dysfunction of eustachian tube 64723258 Active 2021 Not Available [facility] 3 04:52:20 Problem Notes None recorded. Procedures Surgical History Date Name Laterality Status Provider Name and Address Organization Details Recorded Time Excisions - Specify completed Not Available [facility] 09/24/2022 04:42:09 Hernia Repair completed Not Available [facility] th 09/24/2022 04:42:09 completed Not Available [facility] 0 09/24/2022 04:42:09 Tubal Ligation completed Not Available [facility] 09/24/2022 04:42:09 [facility]end[facility] 04:42:09 Cholecystectomy completed Not Available [facility] 09/24/2022 04:42:09 Bone graft reji per tooth completed Sammi Person RN [place] [facility] 02/04/2023 14:54:07 Imaging Results None recorded. Procedure [...] Not available Not available Not available 09/24/2022 [id number] SNOMED Not Available [facility] 3 05:07:49 9104 Iodinated contrast media (substanc e) medicatio n Not available Not available Not available 09/24/2022 57319 2004 SNOMED Not Available [facility] 3 05:07:49 Medications Name Sig Start Date [...] e 50 mcg/actua tion nasal spray,robb[employer] pension [place] 1 spray every day by intranas al [...] THE APPOINTM ENT. YOU MUST HAVE A PAEDIATRIC SURGEON. 02/04 completed Not Available Not Available Not [...] Not Available Not Available Not Available Fluvirin 2089-2161 45 mcg (15 mcg x 3)/0.5 mL intramusc ular suspensio n active Not Available Not Available Not Available Fluzone Quad 1873-5469 60 mcg (15 mcg x 4)/0.5 mL IM suspensio n active Not Available Not Available Not Available Flublok Quad 1898-8184 (PF) 180 mcg (45 mcg x 4)/0.5 [...] kg/m2 167.64 cm 72 /min 97.3 [degF] 72953.5 4 g 124/78 mm[Hg] Not Available [facility] 3 04:47:08 Date Recorded Body mass index (BMI) Body height Heart rate Body temperature Body weight Systolic And Diastolic Provider Name and Address Organization Details Last Updated DateTime 2 34.1 kg/m2 167.64 cm 66 /min 98.5 [degF] 07813.9 9 g 132/80 mm[Hg] Not Available [facility] 3 04:47:08 Date Recorded Body height Body mass index (BMI) Body weight Body temperature Heart rate Systolic And Diastolic Provider Name and Address Organization Details Last Updated DateTime 3 167.64 cm 29.7 kg/m2 33866 g 98 [degF] 85 /min 108/70 mm[Hg] Sammi bloom RN [place] [facility] 3 14:56:41 Date Recorded Body mass index (BMI) Body height Heart rate Body temperature Body weight Systolic And Diastolic Provider Name and Address Organization Details Last Updated DateTime 1 33.2 kg/m2 167.64 cm 76 /min 96.3 [degF] 73844.0 3 g 140/80 mm[Hg] Not Available [facility] 3 04:47:08 Date Recorded Body mass index (BMI) Body height Heart rate Body temperature Body weight Systolic And Diastolic Provider Name and Address Organization Details Last Updated DateTime 2 31.3 kg/m2 167.64 cm 80 /min 97.3 [degF] 05454.9 2 g 122/88 mm[Hg] Not Available [facility] 3 04:47:09 Social History Question Answer Notes LastModified by Organizat ion Details LastModified Time Tobacco Smoking Status Current Every Day Smoker Not Available [facility] 09/24/2022 04:20:33 Do You Have An Advance Directive? No [id number] Information not available 09/24/2022 What Is Your Level Of Caffeine Consumption? Heavy [id number] Information not available 09/24/2022 How Much Tobacco Do You Chew? None [id number] Information not available 09/24/2022 In The 14 Days Before Symptom Onset, Have You Had Close Contact With A Laboratory-confi rmed COVID-19 While That Case Was Ill? No [id number] Information not available 09/24/2022 In The 14 Days Before Symptom Onset, Have You Had Close Contact With A Person Who Is Under Investigation For COVID-19 While That Person Was Ill? No MIGRATION.04515 01709 Information not available 09/24/2022 What Type Of Diet Are You Following? REGULAR MIGRATION.90935 01455 Information not available 09/24/2022 Which Illicit Or Recreational Drugs Have You Used? MARIJUANA Information not available 02/04/2023 What Is The Highest Grade Or Level Of School You Have Completed Or The Highest Degree You Have Received? [id number] Information not available 02/04/2023 Have There Been Any Changes To Your Family Or Social Situation? No Information not available 02/04/2023 Are There Any Guns Present In Your Home? Yes [id number] Information not available 09/24/2022 Do You Use Insect Repellent Routinely? Yes Information not available 02/04/2023 Where Do You Live? SingleLevelHouse Information not available 02/04/2023 Do You Have A Medical Power Of Hammer Mill Operator? No Information not available 02/04/2023 What Was [...] Age Did You Start Smoking Tobacco? 18 MIGRATION.[id number] [id number] Information not available 09/24/2022 Are You Passively Exposed To Smoke? No Information not available 02/04/2023 Are There Any Smokers In Your House? No Information not available 02/04/2023 How Much Tobacco Do You Smoke? 0.5 PPD Information not available 02/04/2023 Do You Use Sunscreen Routinely? Yes MIGRATION.27294 64694 Information not available 09/24/2022 Have You Recently Traveled Abroad? [place] [email or web address] Information not available 02/04/2023 Do You Have Any Dietary Restrictions? No Information not available 02/04/2023 Sex: Unknown Functional Status Question Answer Note LastModified by Organizat ion Details LastModified Time Do you use any illicit or recreational drugs? Yes Information not available 02/04/2023 What is your level of alcohol consumption? Occasional MIGRATION.[id number] Information not available 09/24/2022 Do you or have you ever used smokeless tobacco? Never used smokeless tobacco MIGRATION.719995 [id number] Information not available 09/24/2022 Are you currently employed? No Information not available 02/04/2023 What is your occupation? retired MIGRATION.010906 7837 Information not available 09/24/2022 Do you or have you ever used e-cigarettes or vape? Never used electronic cigarettes MIGRATION.499937 3847 Information not available 09/24/2022 What is your exercise level? Occasional MIGRATION.361373 3353 Information not available 09/24/2022 Mental Status None recorded. Family History Relationship Description Onset Age of this Age Resolved Age Notes LastModified by Organization Details LastModified Time Mother Parkinson's disease [id number] Not available 09/24/2022 04:42:13 Mother Heart disease [id number] Not available 09/24/2022 04:42:13 Father Heart disease MIGRATION.741 [id number] Not available 09/24/2022 04:42:13 Unspecified Relation Malignant neoplasm of thyroid gland doug busch MIGRATION.040 [id number] Not available 09/24/2022 04:42:13 Medical History Condition [...] HAVE YOU BEEN HOSPITALIZED OR SEEN IN [facility] IN THE PAST YEAR ? N ATHEROSCLEROSIS [...] mcg/0.3 mL dose 1 completed Not Available [facility] 09/24/2022 05:07:24 COVID-19, mRNA, LNP-S, PF, 30 mcg/0.3 mL dose 1 completed Not Available [facility] 09/24/2022 05:07:24 Influenza, split virus, quadrivalent, preservative 9 completed Not Available [facility] 09/24/2022 05:07:25 Influenza, split virus, quadrivalent, preservative 8 completed Not Available [facility] 09/24/2022 05:07:25 Influenza, split virus, trivalent, preservative 2 completed Not Available [facility] 09/24/2022 05:07:25 COVID-19, mRNA, LNP-S, PF, 30 mcg/0.3 mL dose 2 completed Not Available [facility] 09/24/2022 05:07:25 Influenza, high-dose, trivalent, PF 5 completed Not Available [facility] 09/24/2022 05:07:25 Influenza, high-dose, trivalent, PF 3 completed Not Available [facility] 09/24/2022 05:07:25 Influenza, split virus, quadrivalent, PF 1 completed Not Available [facility] 09/24/2022 05:07:26 Influenza, split virus, quadrivalent, PF 0 completed Not Available [facility] 09/24/2022 05:07:26 Past Encounters Encounter ID Performer Location Encounter Start Date Encounter Closed Date Diagnosis/Indication Diagnosis SNOMED-CT Code Diagnosis ICD10 Code Diagnosis IMO Codes Diagnosis Note [id number] Everton Albert MD [facility] Internal Med [facility] [address] [address] 12/19/2020 00:00:00 12/24/2020 12:15:17 [id number] Everton Albert MD [facility] [place] [facility] [address] [address] 06/12/2021 00:00:00 06/12/2021 21:51:15 [id number] Everton Albert MD [facility] Internal Med [facility] [address] [address] 01/06/2022 00:00:00 02/01/2022 16:30:54 [id number] Everton Albert MD [facility] Internal Med [facility] [address] [address] 07/17/2022 00:00:00 07/17/2022 21:53:25 [id number] Everton Albert MD [facility] Internal Med [facility] [address] [address] 02/04/2023 14:45:47 02/04/2023 15:14:05 Hyperlipidemia 37075086 E78.5 Dyslipidemia 866729497 E 78.5 Migraine 78588767 G43.90 9 Health Concerns Section Related Observation LastModified by Organization Detai ls LastModified Time None Recorded Concern Status LastModified by Organization Details LastModified Time None Recorded Advance Directives Directive N: Payers Insurance Date Sequence Insurance Name Policy Number Policy Silverio Covered Member ID Silverio Member ID Guarantor Name 07/27/2023 1 [facility] [id number] Romina Higuera [id number] Romina Higuera Notes Date Note Type Note Provider Name and Address Organization Details Recorded Time 02/04/2023 text/html hyperlipidemia does try to follow his to atorvastatin has been doing with Exon bloody nose. Anxiety hydroxyzine doing migraines stable current meds anxiety doing fine on sertraline no side effects Everton Albert MD [address] [place] [address], [facility] [address], [place], [address], [place] [facility] [employer] 02/05/2023 16:18:26 OBGyn Episode No OBEpisode recorded.
[2025-06-05] MEDS: ACETAMINOPHEN 500 MG TABLET 1000 MG PO (08:35)
[2025-06-05] MEDS: KETOROLAC 15 MG/ML VIAL (*BKC) IV PUSH (08:35)
[2025-06-05] MEDS: LACTATED RINGERS 1,000 ML 30 ML IV CONT (08:47)
--- NOTE | 2025-06-05 09:56 | WPDHPUPDATE1 ---
History and Physical Update Update Date/Time: 06/05/25 09:56 History and Physical has been reviewed, including an updated exam of the patient. There are NO changes in the patient's condition. Risks, benefits, and alternatives have been discussed and questions answered. Patient agrees to proceed with procedure. Plan is for Left Cubital tunnel release.
--- NOTE | 2025-06-05 10:02 | WPDANESEPPF ---
Anes - Initial Pre Proc Eval Procedure: Operation Date: 06/05/25 10:00 Proposed Procedures p Left Cubital Tunnel Release - Toño Issa MD Date/Time: 06/05/25 10:02 Surgeon: Toño Issa MD Pre Op Diagnosis: Lt Cubital Tunnel Syn Patient Data Age: 65 Gender: F Height: 1.68 m Weight: 88.6 kg Last Vital Signs Temp 36.9 C 06/05/25 08:35 Pulse 63 06/05/25 08:35 Resp 16 06/05/25 08:35 BP 163/99 H 06/05/25 08:35 Pulse Ox 98 06/05/25 08:35 O2 Del Method Room Air 06/05/25 08:35 Allergies Allergy/AdvReac Type Severity Reaction Status Date / Time latex Allergy Mild SKIN RASH Verified 06/05/25 08:46 Sulfa (Sulfonamide Allergy Unknown Unknown Verified 06/05/25 08:46 Antibiotics) Contrast Media Allergy Unknown SEVERE Uncoded 04/27/25 13:05 SHAKING, FEELS LIKE INSIDE ORGANS ON FIRE Home Medications ?Medication ?Instructions ?Recorded ?Confirmed ?Type atorvastatin 40 mg tablet 40 mg PO DAILY 04/27/25 05/03/25 History cholecalciferol (vitamin D3) 125 125 mcg PO DAILY 04/27/25 05/03/25 History mcg (5,000 unit) capsule cyanocobalamin (vitamin B-12) 1,000 mcg PO DAILY 04/27/25 05/03/25 History 1,000 mcg capsule ibuprofen 200 mg capsule (Motrin 200 mg PO Q6H PRN pain 04/27/25 05/03/25 History IB) pseudoephedrine HCl 30 mg tablet 30 mg PO Q4-6H PRN nasal congestion 04/27/25 05/03/25 History (Sudafed) sertraline 100 mg tablet 100 mg PO Q24H 04/27/25 06/05/25 History Patient hx anesthesia problems: none Family hx anesthesia problems: none Results Review: All pre-operative results and documents have been reviewed as part of the pre-operative evaluation. [facility] Surgical History Surgical History H/O removal of cyst History of cholecystectomy History of appendectomy H/O tubal ligation History of tonsillectomy Family History Family History Mother Family history of Parkinson's disease Family history of heart disease in male family member before age 55 Father Family history of heart disease in male family member before age 55 Social History Social History Smoking packs per day: 1 Smoking cigarettes per day: 20.0 Years smoked: 40 Smoking pack-years: 40.00 Smoking status: Current every day smoker Tobacco type: cigarettes Second hand tobacco smoke exposure: Yes Alcohol intake: current Drinks per week: 2 Alcohol use details: occasional Substance use: former Substance use type: does not use Lack of Transportation: No Lack of Food: Never True Current Housing: I Have Housing Concerned About Future Housing: No Difficulty Paying Gas/Electric Bills: No Difficulty Paying for Meds: No Currently Unemployed: No Education: Associate Degree Difficulty w/ Childcare or Family Care: No Living arrangements: with family Additional living arrangements comments: [place] Spiritual care concerns: No Anes - Eval Final PreProcedure Day of Procedure 06/05/25 10:02 Patient weight: obese Heart: regular rate and rhythm Lungs: decreased breath sounds Airway: Mallampati scale class II Neurological: alert and oriented Last oral intake: >/= 8 hours ASA classification: III Emergent: no Anesthetic plan: proceed Anesthesia type and monitoring: general LMA and standard monitoring Results Review: All pre-operative results and documents have been reviewed as part of the pre-operative evaluation. Informed Consent: The patient's anesthetic plan and its attendant risks and benefits were discussed with the patient/family/POA. Questions were solicited and answers provided to the satisfaction of the patient/family/POA.
[2025-06-05] MEDS: ceFAZolin 2 GM in SODIUM CHLORIDE 0.9% IV 50 ML 100 ML IVPB (10:06)
[2025-06-05] MEDS: LIDO 1%/EPINEPHRINE 1:100,000 20 ML VIAL INFILTRATE (10:28)
--- NOTE | 2025-06-05 10:48 | W.PM.PROC2 ---
Procedure Note - Detailed Date of Procedure 06/05/25 Pre-op Diagnosis LEFT Cubital Tunnel Syndrome Post-op Diagnosis Same Procedure Performed Release Left Cubital Tunnel Surgeon Toño Issa MD Anesthesia General Indications Pain and Numbness Description of Procedure Patient brought to operating room number #6. A general anesthetic was administered. She was sterilely prepped and draped in usual manner. Longitudinal incision made over the ulnar nerve at the elbow. Dissection gently carried down to the fascia. The fascia split and the ulnar nerve identified. The ulnar nerve was released from just proximal to the epicondylar olecranon axis and distally all the way through the cubital tunnel area. At this point there was no further compression on the nerve and the nerve was stable. The wounds irrigated. Hemostasis obtained. And closed with 2-0 Vicryl 3-0 nylon. Sterile dressing applied patient tolerated procedure well. And left the operating room satisfactory condition. Estimated Blood Loss 5 Complications No immediate complications Condition Stable Disposition PACU [facility] Billing Surgery - Charge Forward: Surgery Billing ([id number] Cubital Tunnel)
[2025-06-05] MEDS: fentaNYL CITRATE INJ (*CRX) 100 MCG/2 ML VIAL 25 MCG IV PUSH ×8 (11:02→11:33)
[2025-06-05] MEDS: oxyCODONE HCL (*CRX) 5 MG TAB IR PO (12:18)
== END 2025-06-05 12:45 | disposition home or self-care (01) ==
PROVIDERS: PCP Internal Medicine; Visit Provider Orthopaedic Surgery
PROC: (CPT 64721; principal; 2025-06-05 10:00)
DX: G56.22 Lesion of ulnar nerve, left upper limb (principal); F17.210 Nicotine dependence, cigarettes, uncomplicated; E66.9 Obesity, unspecified; Z68.31 Body mass index [BMI] 31.0-31.9, adult; Z79.1 Long term (current) use of non-steroidal anti-inflammatories (NSAID); Z98.890 Other specified postprocedural states; Z90.49 Acquired absence of other specified parts of digestive tract; Z98.51 Tubal ligation status; Z82.49 Family history of ischemic heart disease and other diseases of the circulatory system
CPT/HCPCS: 64718; J0690; A9270; J0461; J1885; J2004; J2250; J2704; J3010; J7120